=== PATIENT | male | born 1955 | race Hispanic/Latino ===

== ENCOUNTER 2019-10-28 20:56 | Inpatient (IN) | payer SELFPAY ==
[~2019-10-28] VITALS: Ht 165.1 cm; Wt 68.6 kg
--- NOTE | 2019-10-28 21:18 | Emergency Department Note ---
History of Present Illnes History of Present Illness Chief Complaint: Abdominal Complaints History of Present Illness This is a 64 year old male diarrheal illness with hematochezia of one month duratoin . 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 Any updates have been documented here. Past Medical History Recent Fever: Yes Clinical Suspicion of Infectio: Yes New/Unexplained Change in Ment: No Past Medical History: Hypertension, Diabetes Past Surgical History: None Social History Smoking Cessation: Never Smoker Alcohol Use: None Any Illegal Drug Use: No Review of Systems Review of Systems Constitutional: Reports weakness EENTM: Reports no symptoms Cardiovascular: Reports no symptoms Respiratory: Reports no symptoms Gastrointestinal: Reports abdominal pain Genitourinary: Reports no symptoms Musculoskeletal: Reports no symptoms Integumentary: Reports no symptoms Neurological: Reports no symptoms Psychological: Reports no symptoms Endocrine: Reports no symptoms Hematological/Lymphatic: Reports no symptoms Physical Exam Related Data Allergies: Coded Allergies: No Known Allergies (Unverified , 10/28/19) Triage Vital Signs Vital Signs Date Time Temp Pulse Resp B/P (MAP) Pulse Ox O2 Delivery O2 Flow Rate FiO2 10/28/19 21:16 100.7 160 16 106/74 97 Room Air 10/28/19 23:47 2.0 Vital signs reviewed: Yes Physical Exam CONSTITUTIONAL Constitutional: Present well-developed, Present well-nourished, Present ill appearing HENT HENT: Present normocephalic, Present atraumatic, Present oropharynx clear/moist, Present nose normal HENT L/R: Present left ext ear normal, Present right ext ear normal EYES Eyes: Reports PERRL, Reports conjunctivae normal NECK Neck: Present ROM normal PULMONARY Pulmonary: Present effort normal, Present breath sounds normal CARDIOVASCULAR Cardiovascular: Present irregular rhythm, Present heart sounds normal, Present tachycardia GASTROINTESTINAL Abdominal: Present soft, Present tender (epigastric) GENITOURINARY Genitourinary: Present exam deferred SKIN Skin: Present warm, Present dry MUSCULOSKELETAL Musculoskeletal: Present ROM normal NEUROLOGICAL Neurological: Present alert, Present oriented x 3, Present no gross motor or sensory deficits PSYCHOLOGICAL Psychological: Present mood/affect normal, Present judgement normal Results Laboratory Lab results reviewed: Yes Laboratory comments Laboratory Tests Test 10/28/19 23:33 10/28/19 22:00 10/28/19 21:52 10/28/19 21:26 Urine Color Yellow (YELLOW) Urine Clarity Clear (CLEAR) Urine pH 5 (5 - 7) Urine Specific [place] 1.005 (1.010-1.025) Urine Protein Negative (NEGATIVE) Urine Glucose (UA) Negative (NEGATIVE) Urine Ketones Trace (NEGATIVE) Urine Blood Negative (NEGATIVE) Urine Nitrite Negative (NEGATIVE) Urine Bilirubin Negative (NEGATIVE) Urine Urobilinogen 0.2 mg/dL (0.2 - 1) Urine Leukocyte Esterase Negative (NEGATIVE) Urine RBC 0-5 /HPF (0-5) Urine WBC 0-5 /HPF (0-5) Urine Epithelial Cells Few /LPF (NONE) Urine Bacteria Few /HPF (NONE) Lactic Acid Level 2.5 mmol/L (0.5-2.0) 2.4 mmol/L (0.5-2.0) White Blood Count 4.54 x10e3/uL (4.8-10.8) Red Blood Count 4.39 x10e6/uL (4.3-5.7) Hemoglobin 13.3 g/dL (14.0-18.0) Hematocrit 39.3 % (38.2-49.6) Mean Corpuscular Volume 89.5 fL (81-99) Mean Corpuscular Hemoglobin 30.3 pg (28-32) Mean Corpuscular Hemoglobin Concent 33.8 g/dL (31-35) Red Cell Distribution Width 13.4 % (11.7-14.4) Platelet Count 239 x10e3/uL (140-360) Neutrophils (%) (Auto) 78.6 % (38.7-80.0) Lymphocytes (%) (Auto) 10.8 % (18.0-39.1) Monocytes (%) (Auto) 7.7 % (4.4-11.3) Eosinophils (%) (Auto) 0.4 % (0.0-6.0) Basophils (%) (Auto) 1.8 % (0.0-1.0) Neutrophils # (Auto) 3.6 (2.1-6.9) Lymphocytes # (Auto) 0.5 (1.0-3.2) Monocytes # (Auto) 0.4 (0.2-0.8) Eosinophils # (Auto) 0.0 (0.0-0.4) Basophils # (Auto) 0.1 (0.0-0.1) Absolute Immature Granulocyte (auto 0.03 x10e3/uL (0-0.1) Sodium Level 137 mmol/L (136-145) Potassium Level 4.2 mmol/L (3.5-5.1) Chloride Level 102 mmol/L (98-107) Carbon Dioxide Level 18 mmol/L (22-29) Anion Gap 21.2 mmol/L (8-16) Blood Urea Nitrogen 21 mg/dL (7-26) Creatinine 1.11 mg/dL (0.72-1.25) Estimat Glomerular Filtration Rate > 60 ML/MIN (60-) BUN/Creatinine Ratio 19 (6-25) Glucose Level 153 mg/dL (74-118) Calcium Level 9.3 mg/dL (8.4-10.2) Total Bilirubin 1.2 mg/dL (0.2-1.2) Aspartate Amino Transf (AST/SGOT) 13 IU/L (5-34) Alanine Aminotransferase (ALT/SGPT) 15 IU/L (0-55) Alkaline Phosphatase 71 IU/L (40-150) Creatine Kinase 11 IU/L (30-200) Creatine Kinase MB 0.50 ng/mL (0-5.0) Troponin I < 0.001 ng/mL (0-0.300) Total Protein 6.9 g/dL (6.5-8.1) Albumin 2.7 g/dL (3.5-5.0) Globulin 4.2 g/dL (2.3-3.5) Albumin/Globulin Ratio 0.6 (0.8-2.0) Lipase < 4 U/L (8-78) Imaging Imaging results reviewed: Yes Impressions [facility] [address] [place] [address] Patient Name: MISSY CARCAMO MR #: [id number] : 1955 Age/Sex: 64/M Req #: [id number] [facility] Physician: Ordered by: JYOTI MELVIN DO Report #: [id number] Location: ER Room/Bed: Procedure: [id number] CT/CT CHEST W Exam Date: 10/28/19 Exam Time: 2216 REPORT STATUS: Signed EXAM: CT Chest, Abdomen and Pelvis WITH contrast INDICATION: Cough, diarrhea COMPARISON: None. TECHNIQUE: Chest, abdomen and pelvis were scanned utilizing a multidetector helical scanner from the lung apex to the pubic symphysis after administration of IV contrast. Coronal and sagittal reformations were obtained. Routine protocol was performed. Scan was performed when during portal venous phase. IV CONTRAST: 100 mL of Isovue 370 ORAL CONTRAST: None COMPLICATIONS: None RADIATION DOSE: Total DLP: 671 mGy*cm Estimated effective dose: (DLP x 0.015 x size factor) mSv CTDIvol has been reviewed. It is below the limits set by the Radiation Protocol Committee (RPC). Dose modulation, iterative reconstruction, and/or weight based adjustment of the mA/kV was utilized to reduce the radiation dose to as low as reasonably achievable. FINDINGS: LINES and TUBES: None. LUNGS AND AIRWAYS: The lungs are unremarkable. Airways are normal. PLEURA: The pleural spaces are clear. HEART AND MEDIASTINUM: The thyroid gland is normal. No mediastinal, hilar or axillary lymphadenopathy. The heart is mildly enlarged. There is no pericardial effusion. Aortic valve calcifications. Minimal calcifications of the aorta and major branches. Fluid in the mid to lower esophageal lumen. HEPATOBILIARY: Hypodense liver. No focal hepatic lesions. No biliary ductal dilation. GALLBLADDER: No radio-opaque stones or sludge. No wall thickening. SPLEEN: No splenomegaly. PANCREAS: Atrophy and fatty replacement of the pancreas. ADRENALS: No adrenal nodules. atrophic adrenal glands. KIDNEYS/URETERS: Kidneys enhance symmetrically. No hydronephrosis. No cystic or solid mass lesions. No stones. GI TRACT: Pancolonic wall thickening, mucosal hyperenhancement, loss of aspiration. Appendix is normal. PELVIC ORGANS/BLADDER: Unremarkable. LYMPH NODES: No lymphadenopathy. VESSELS: Arterial calcifications. PERITONEUM / RETROPERITONEUM: No free air or fluid. BONES: Degenerative changes. Osseous demineralization. SOFT TISSUES: Unremarkable. IMPRESSION: 1. Pancolitis, correlate for inflammatory bowel disease or infection/pseudomembranous colitis. 2. Fluid in the mid to lower esophageal lumen, suggestive of gastroesophageal reflux. 3. Hepatic steatosis. 4. Adrenal and pancreatic atrophy. Considerable hormonal analysis. Signed by: Delfino Cherry DO on 10/29/2019 12:12 AM Dictated By: DELFINO CHERRY DO Transcribed By: BRENDA on 10/29/1911 COPY TO: JYOTI MELVIN DO~ Procedures 12 Lead ECG Interpretation ECG Interpretation : ECG: ECG 1 Pit Furnace Operator: Interpreted by ED physician Date: Oct 28, 2019 Time: 21:42 Prior ECG tracings: reviewed Rhythm: atrial fibrillation Ectopy: PVC's Rate: tachycardia BPM: 160 ST segment flattening: V4, V5, V6 Clinical Impression: abnormal ECG Critical Care Time Total Critical Care Time (min): 31 Critcal care necessary due to: cardiac failure, sepsis Critcal care time spent by me: develop tx plan w patient/surrogate, discussion w consultants, discussion w primary provider, evaluation patient response to tx, examination of patient, obtaining hx from patient/surrogate, order/perform tx or interventions, order/review laboratory studies, order/review radiographic studies, re-evaluation of patient condition Assessment & Plan Medical Decision Making MDM 64 yom presents presents with signs and symptoms concerning for sepsis . Blood cx x 2 and blood cx ordered with abx given. Lactic acid obtained and reviewed. During the COVID-19 virus pandemic and has a clinical picture consistent with a COVID-19 source for sepsis. Thus, patient was treated for suspected viral sepsis rather than bacterial sepsis. Given the potential for ARDS and present suggestions of early data from COVID treatment in other areas, fluids were given sparingly and the SEP-1 guidelines were deviated from. For consideration of other sources, blood and urine cultures, lactic acid and antibiotics were ordered. Will continue to monitor blood pressure and adjust fluid resuscitation accordingly. Assessment & Plan Final Impression: (1) Pseudomembranous colitis (2) Atrial fibrillation with rapid ventricular response (3) Severe sepsis JYOTI MELVIN DO Oct 28, 2019 21:18
[2019-10-28] MEDS ORDERED: ACETAMINOPHEN 325 MG TAB PO STA (21:27)
[2019-10-28] MEDS ORDERED: DILTIAZEM HCL 5 MG/ML 5 ML VIAL IV STA (21:37)
[2019-10-28] MEDS ORDERED: DILTIAZEM HCL VIAL 5 ML ONE (21:42)
[2019-10-28] MEDS ORDERED: SODIUM CHLORIDE 0.9% 1000ML 1,000 ML ONE (21:43)
[2019-10-28 21:59] LABS: ALANINE AMINOTRANSFERASE 15 IU/L (0-55); ALBUMIN 2.7 g/dL (3.5-5.0); ALBUMIN/GLOBULIN RATIO 0.6 (0.8-2.0); ALKALINE PHOSPHATASE 71 IU/L (40-150); ANION GAP 21.2 mmol/L (8-16); BASOPHILS # (AUTO) 0.1 (0.0-0.1); BASOPHILS % 1.8 % (0.0-1.0); BLOOD UREA NITROGEN 21 mg/dL (7-26); BUN/CREATININE RATIO 19 (6-25); CALCIUM 9.3 mg/dL (8.4-10.2); CARBON DIOXIDE 18 mmol/L (22-29); CHLORIDE 102 mmol/L (98-107); CREATINE KINASE 11 IU/L (30-200); CREATININE, SERUM 1.11 mg/dL (0.72-1.25); EOSINOPHILS % 0.4 % (0.0-6.0); EST GLOMERULAR FILTRATION RATE > 60 ML/MIN (60-); GLUCOSE 153 mg/dL (74-118); HEMATOCRIT 39.3 % (38.2-49.6); HEMOGLOBIN 13.3 g/dL (14.0-18.0); LYMPHOCYTES # (AUTO) 0.5 (1.0-3.2); LYMPHOCYTES % 10.8 % (18.0-39.1); MEAN CORPUSCULAR HEMOGLOBIN 30.3 pg (28-32); MEAN CORPUSCULAR HGB CONC 33.8 g/dL (31-35); MEAN CORPUSCULAR VOLUME 89.5 fL (81-99); MONOCYTES # (AUTO) 0.4 (0.2-0.8); MONOCYTES % 7.7 % (4.4-11.3); NEUTROPHILS # (AUTO) 3.6 (2.1-6.9); NEUTROPHILS % 78.6 % (38.7-80.0); PLATELET COUNT 239 x10e3/uL (140-360); POTASSIUM 4.2 mmol/L (3.5-5.1); RED BLOOD COUNT 4.39 x10e6/uL (4.3-5.7); RED CELL DISTRIBUTION WIDTH 13.4 % (11.7-14.4); SODIUM 137 mmol/L (136-145)
[2019-10-28] MEDS ORDERED: PIPER-TAZ 3.375 GM 50 ML IV SCH (22:00)
--- OUTSIDE RECORDS SUMMARY | 2019-10-28 22:00 | XMS REPORT | Continuity of Care Document ---
Author Author [facility] t Organization [facility] Address [address] [place] [address] Phone Unavailable Care Team Providers Care Area Counselor Name Role Phone Unavailable Unavailable Payers Payer Name Policy Type Policy Number Effective Date Expiration Date S ource Problems This patient has no known problems. Allergies, Adverse Reactions, Alerts Allergy Name Allergy Type Status Severity Reaction(s) Onset Date Inacti ve Date Treating Clinician Comments Source No Known Allergies DA Active U 2019-10-24 00:00:00 [facility] No Known Allergies DA Active U 2014-10-06 00:00:00 [facility] Medications This patient has no known medications. Procedures This patient has no known procedures. Results Test Description Test Time Test Comments Results Result Comments Source URINALYSIS COMPLETE 2019-10-24 17:00:00 Test Item UA COLOR (test code = COLU) Dark-Yellow YELLOW UA APPEARANCE (test code = APPU) Cloudy CLEAR A UA GLUCOSE DIPSTICK (test code = DGLUU) NEGATIVE mg/dL NEGATIVE UA BILIRUBIN DIPSTICK (test code = BILU) 0.5 (1+) mg/dL NEGATIVE A UA KETONE DIPSTICK (test code = KETU) 20 (1+) mg/dL NEGATIVE A UA SPECIFIC GRAVITY (test code = SGU) 1.030 1.001-1.035 UA BLOOD DIPSTICK (test code = RAYSHAWN) Negative mg/dL NEGATIVE UA PH DIPSTICK (test code = KAROLINA) 5.5 5.0-8.0 UA PROTEIN DIPSTICK (test code = PROU) 100 (2+) mg/dL NEGATIVE A UA UROBILINIOGEN DIPSTICK (test code = URO) 2.0 (1+) mg/dL NEGATIVE A UA NITRITE DIPSTICK (test code = INDRA) NEGATIVE NEGATIVE UA LEUKOCYTE ESTERASE W REFLEX (test code = LEUUR) NEGATIVE Lokesh/uL NEGATIVE UA WBC (test code = WBCU) 11-20 per HPF 0-5 A UA RBC (test code = RBCU) 0-2 #/HPF 0-5 UA EPITHELIAL CELLS (test code = EPIU) FEW per HPF FEW UA BACTERIA (test code = BACU) NONE SEEN #/HPF NONE UA HYALINE CAST (test code = HYALU) 11-20 #/LPF 0-5 A UA MUCUS (test code = MUCU) MANY #/LPF FEW A Urine Source? Clean CatchBASIC METABOLIC [id number] 11:16:00* Test Item Value Reference Range Interpretation Comments SODIUM (test code = NA) 138 mmol/L 136-145 N POTASSIUM (test code = K) 4.5 mmol/L 3.5-5.1 N CHLORIDE (test code = CL) 107.0 mmol/L 98-107 N CARBON DIOXIDE (test code = CO2) 23.0 mmol/L 21-32 N ANION GAP (test code = GAP) 12.5 10-20 N GLUCOSE (test code = GLU) 110 mg/dL 74-106 H BLOOD UREA NITROGEN (test code = BUN) 11 mg/dL 7-18 N GLOMERULAR FILTRATION RATE (test code = GFR) > 60 mL/min >=60 Estimated GFR by using Modified MDRD formula.Chronic kidney disease is defined as either kidney damageor GFR <60 mL/min/1.73 m2 for >3 months. CREATININE (test code = CREAT) 1.20 mg/dL 0.7-1.3 N BUN/CREATININE RATIO (test code = BUN/CREA) 9.6 10-20 L CALCIUM (test code = CA) 9.0 mg/dL 8.5-10.1 N HEPATIC FUNCTION [id number] 11:16:00* Test Item Value Reference Range Interpretation Comments TOTAL PROTEIN (test code = PROT) 7.3 gram/dL 6.4-8.2 N ALBUMIN (test code = ALB) 2.8 g/dL 3.4-5.0 L GLOBULIN (test code = GLOB) 4.5 gram/dL 2.7-4.2 H ALBUMIN/GLOBULIN RATIO (test code = A/G) 0.6 0.75-1.50 L BILIRUBIN TOTAL (test code = BILT) 1.20 mg/dL 0.0-1.0 H BILIRUBIN DIRECT (test code = BILD) 0.20 mg/dL 0.0-0.20 N SGOT/AST (test code = AST) 37 IUnit/L 15-37 N SGPT/ALT (test code = ALT) 44 IUnit/L 12-78 N ALKALINE PHOSPHATASE TOTAL (test code = ALKP) 85 IUnit/L 45-117 N Note change in reference range due to change in reagent. [id number] 11:16:00* Test Item Value Reference Range Interpretation Comments LIPASE (test code = LIP) 12 U/L 73.0-393.0 L [id number] 11:16:00* Test Item Value Reference Range Interpretation Comments TROPONIN-I (test code = TROPI) <0.015 ng/mL 0-0.045 N BASIC METABOLIC [id number] 11:06:00* Test Item Value Reference Range Interpretation Comments SODIUM (test code = NA) 138 mmol/L 136-145 N POTASSIUM (test code = K) 4.5 mmol/L 3.5-5.1 N CHLORIDE (test code = CL) 107.0 mmol/L 98-107 N CARBON DIOXIDE (test code = CO2) mmol/L 21-32 ANION GAP (test code = GAP) 10-20 GLUCOSE (test code = GLU) mg/dL 74-106 BLOOD UREA NITROGEN (test code = BUN) mg/dL 7-18 GLOMERULAR FILTRATION RATE (test code = GFR) mL/min >=60 CREATININE (test code = CREAT) mg/dL 0.7-1.3 BUN/CREATININE RATIO (test code = BUN/CREA) 10-20 CALCIUM (test code = CA) mg/dL 8.5-10.1 HEPATIC FUNCTION [id number] 11:06:00* Test Item Value Reference Range Interpretation Comments TOTAL PROTEIN (test code = PROT) gram/dL 6.4-8.2 ALBUMIN (test code = ALB) g/dL 3.4-5.0 GLOBULIN (test code = GLOB) gram/dL 2.7-4.2 ALBUMIN/GLOBULIN RATIO (test code = A/G) 0.75-1.50 BILIRUBIN TOTAL (test code = BILT) mg/dL 0.0-1.0 BILIRUBIN DIRECT (test code = BILD) mg/dL 0.0-0.20 SGOT/AST (test code = AST) IUnit/L 15-37 SGPT/ALT (test code = ALT) IUnit/L 12-78 ALKALINE PHOSPHATASE TOTAL (test code = ALKP) IUnit/L 45-117 [id number] 11:06:00* Test Item Value Reference Range Interpretation Comments LIPASE (test code = LIP) U/L 73.0-393.0 [id number] 11:06:00* Test Item Value Reference Range Interpretation Comments TROPONIN-I (test code = TROPI) ng/mL 0-0.045 CBC W/O [id number] 10:58:00* Test Item Value Reference Range Interpretation Comments WHITE BLOOD CELL (test code = WBC) 10.4 K/mm3 4.5-12.5 N RED BLOOD CELL (test code = RBC) 4.57 mill/mm3 4.0-5.8 N HEMOGLOBIN (test code = HGB) 14.2 gram/dL 13.0-17.5 N HEMATOCRIT (test code = HCT) 42.4 % 42.0-52.0 N MEAN CELL VOLUME (test code = MCV) 92.8 fL 80-98 N MEAN CELL HGB (test code = MCH) 31.1 picogram 27.0-33.0 N MEAN CELL HGB CONCETRATION (test code = MCHC) 33.5 gram/dL 33.0-36. 0 N RED CELL DISTRIBUTION WIDTH (test code = RDW) 13.3 % 11.6-16. 2 N PLATELET COUNT (test code = PLT) 296 K/mm3 150-450 N MEAN PLATELET VOLUME (test code = MPV) 10.5 fL 6.7-11.0 N CBC W/O [id number] 10:56:00* Test Item Value Reference Range Interpretation Comments WHITE BLOOD CELL (test code = WBC) K/mm3 4.5-12.5 RED BLOOD CELL (test code = RBC) mill/mm3 4.0-5.8 HEMOGLOBIN (test code = HGB) 14.2 gram/dL 13.0-17.5 N HEMATOCRIT (test code = HCT) 42.4 % 42.0-52.0 N MEAN CELL VOLUME (test code = MCV) fL 80-98 MEAN CELL HGB (test code = MCH) picogram 27.0-33.0 MEAN CELL HGB CONCETRATION (test code = MCHC) gram/dL 33.0-36. 0 RED CELL DISTRIBUTION WIDTH (test code = RDW) % 11.6-16. 2 PLATELET COUNT (test code = PLT) 296 K/mm3 150-450 N MEAN PLATELET VOLUME (test code = MPV) fL 6.7-11.0 LIPID PROFILE (CORONARY RISK)2019-06-13 15:12:00* Test Item Value Reference Range Interpretation Comments TRIGLYCERIDES (test code = TRIG) 122 mg/dL 20-150 N CHOLESTEROL (test code = CHOL) 227 mg/dL 0-200 H CHOLESTEROL/HDL RATIO (test code = CHOLHDL) 4.0 RATIO 0-4.9 N RISK ASSOCIATED WITH CHOL/HDL RATIOS: Risk Male Female1/2 AVERAGE 3.43 3.27AVERAGE 4.97 4.442X AVERAGE 9.55 7.053X AVERAGE 23.39 11.04 REFERENCE VALUE IS RELATED TO RISK LEVELS ASRECOMMENDED BY THE [facility]. HEART, LUNG, AND BLOOD INST. HDL CHOLESTEROL (test code = HDL) 51 mg/dL 40-60 N LIPOPROTEIN LDL (test code = LDL) 151 mg/dL 100-129 H RN PERSONNEL, CONTACT PHYSICIAN IMMEDIATELY IF THIS IS A STROKE, AMI OR CAROTID STENOSIS PATIENT WHEN THE LDL >100 (1ST OCCURENCE, THIS ADMISSION) Reference Interval: mg/dL mmol/L Optimal <100 <2.6Near/above optimal 100-129 2.6- 3.3Borderline High 130-159 3.4-4.1High 160-189 4.1-4.9Very High >=190 >=4.9========= This LDL result is a direct measurement.========= [id number] 14:35:00* Test Item Value Reference Range Interpretation Comments TROPONIN-I (test code = TROPI) <0.015 ng/mL 0-0.045 N - CTA [id number] 09:43:00 Name: MISSY CARCAMO [facility] : 1955 Age/S: 63 / M [address] [facility] Unit #: [id number] Loc: [place] [address] Phys: Eva Escobedo MD Acct: [id number] Dis Date: Status: ADM IN PHONE #: [phone] Exam Date: 06/13/2019809 FAX #: [phone] Reason: Stroke EXAMS: CPT CODE: [id number] CTA HEAD 80649 HISTORY: Stroke. COMPARISON: Head CT from same day. Location: [facility]. CTA NECK: 3-D images NOT available. 100 mL of Isovue-370. Automated exposure control. NASCET criteria. The lung apices are clear. Dependent changes. Superior mediastinum is unremarkable. DJD of the cervical spine with multilevel posterior marginal disc osteophyte complex and facet hypertrophy. This results in moderate canal and moderate foraminal stenosis. No pathologic adenopathy. Unremarkable thyroid glands. Airway is patent. Symmetrical fossa of Rosenmueller. Intraorbital contents are unremarkable. The brain parenchyma enhances homogeneously. Large acute infarct is suspected again in the left MCA distribution superiorly in the parietal cortex. Dural sinuses are well-opacified. Right side: Subclavian artery is widely patent. Occluded vertebral artery. CCA is widely patent. Large soft atherosclerotic plaque at the carotid bulb. Stenosis of 50-60%. ICA is patent. ECA is patent. Left side: Subclavian artery is widely patent. Dominant vertebral artery is widely patent. CCA is widely patent. Soft and hard plaque at the carotid bulb and origin of ICA. Stenosis of 80-90% at the origin of the ICA. Flow noted distally. ECA is widely patent . IMPRESSION: 80-90% stenosis with soft and [address] plaque at the origin of left ICA and carotid bulb. 50-60% stenosis at the right carotid bulb with soft plaque. Occluded rig ht vertebral artery at its origin. CTA pilot station of Shaheed lis: 3-D images NOT available. Basilar artery is diminutive bu t patent with moderate atherosclerotic change proximally with 50% narrow ing. Flow noted distally. origin of the right STATOR WINDER with extensive a therosclerotic change in the P2 segment. Left STATOR WINDER is patent. Left specialized language instructor ior communicating artery is patent and the right is absent. Anterior com municating artery is patent. PAGE 1 Signed Re port (CONTINUED) Name: MISSY CARCAMO [facility] : 1955 Age[facility]S: 63 [facility] [address] [facility] [id number] Loc: [place] [address] Phys: Eva Escobedo MD Acct: [id number] Dis Date: Status: ADM IN PHONE #: [phone] Exam Date: 06/13/2019 0810 FAX #: [phone] Reason: Stroke EXAMS: CPT CODE: [id number] CTA HEAD 27088 <Continued> Bilateral petrous ICA and cavernous ICA are widely patent. Moderate atherosclerotic change of the supraclinoid left ICA with 50-60% stenosis. The right supraclinoid ICA is patent. Right MCA and FRED are widely patent. Left FRED and MCA are widely patent as well. No aneurysm. Dural sinuses are patent. IMPRESSION: 50-60% stenosis of the left supraclinoid ICA. Bilateral FRED and MCA and STATOR WINDER are patent with moderate atherosclerotic changes of the P2 segment on the right with origin. No aneurysm. at 0943 Reported and signed by: Colten Jolly M.D. CC: Eva Escobedo MD; Guanakito Momin; ROBY BAUTISTA Technologist:Salbador Dawkins RT(R),(MR),(CT); CTDI: DLP: Trnscb Date/Time: 06/13/2019 (0943) [email or web address] Orig Print D/T: S: 06/13/2019 (5229) PAGE 2 Signed Report - CTA [id number] 09:43:00 Name: MISSY CARCAMO [facility] : 1955 Age/S: 63 / M [address] Unit #: [id number] Loc: [place] [address] Phys: Eva Escobedo MD Acct: [id number] Dis Date: Status: ADM IN PHONE #: [phone] Exam Date: 06/13/2019809 FAX #: [phone] Reason: Stroke EXAMS: CPT CODE: [id number] CTA NECK 36572 HISTORY: Stroke. COMPARISON: Head CT from same day. Location: [facility]. CTA NECK: 3-D images NOT available. 100 mL of Isovue-370. Automated exposure control. NASCET criteria. The lung apices are clear. Dependent changes. Superior mediastinum is unremarkable. DJD of the cervical spine with multilevel posterior marginal disc osteophyte complex and facet hypertrophy. This results in moderate canal and moderate foraminal stenosis. No pathologic adenopathy. Unremarkable thyroid glands. Airway is patent. Symmetrical fossa of Rosenmueller. Intraorbital contents are unremarkable. The brain parenchyma enhances homogeneously. Large acute infarct is suspected again in the left MCA distribution superiorly in the parietal cortex. Dural sinuses are well-opacified. Right side: Subclavian artery is widely patent. Occluded vertebral artery. CCA is widely patent. Large soft atherosclerotic plaque at the carotid bulb. Stenosis of 50-60%. ICA is patent. ECA is patent. Left side: Subclavian artery is widely patent. Dominant vertebral artery is widely patent. CCA is widely patent. Soft and hard plaque at the carotid bulb and origin of ICA. Stenosis of 80-90% at the origin of the ICA. Flow noted distally. ECA is widely patent . IMPRESSION: 80-90% stenosis with soft and [address] plaque at the origin of left ICA and carotid bulb. 50-60% stenosis at the right carotid bulb with soft plaque. Occluded rig ht vertebral artery at its origin. CTA pilot station of Shaheed lis: 3-D images NOT available. Basilar artery is diminutive bu t patent with moderate atherosclerotic change proximally with 50% narrow ing. Flow noted distally. origin of the right STATOR WINDER with extensive a therosclerotic change in the P2 segment. Left STATOR WINDER is patent. Left specialized language instructor ior communicating artery is patent and the right is absent. Anterior com municating artery is patent. PAGE 1 Signed Re port (CONTINUED) Name: MISSY CARCAMO [facility] : 1955 Age/S: 63 / M [address] Unit #: [id number] Loc: [place] [address] Phys: Eva Escobedo MD Acct: [id number] Dis Date: Status: ADM IN PHONE #: [phone] Exam Date: 06/13/2019809 FAX #: [phone] Reason: Stroke EXAMS: CPT CODE: [id number] CTA NECK 55690 <Continued> Bilateral petrous ICA and cavernous ICA are widely patent. Moderate atherosclerotic change of the supraclinoid left ICA with 50-60% stenosis. The right supraclinoid ICA is patent. Right MCA and FRED are widely patent. Left FRED and MCA are widely patent as well. No aneurysm. Dural sinuses are patent. IMPRESSION: 50-60% stenosis of the left supraclinoid ICA. Bilateral FRED and MCA and STATOR WINDER are patent with moderate atherosclerotic changes of the P2 segment on the right with origin. No aneurysm. at 0943 Reported and signed by: Colten Jolly M.D. CC: Eva Escobedo MD; Guanakito Momin; ROBY BAUTISTA Technologist:Salbador Dawkins RT(R),(MR),(CT); CTDI: DLP: Trnscb Date/Time: 06/13/2019 (0943) [email or web address] Orig Print D/T: S: 06/13/2019 (7246) PAGE 2 Signed Report - MRI BRAIN W/O [id number] 09:15:00 FAX: Gabriel Dobbs MD [phone] [place]: B St: ADM FAX: Marianela Veras [phone] Name: MISSY CARCAMO [facility] : 1955 Age/S: 63/M [address] [facility] Unit #: [id number] Loc: [address] [place] [address] Phys: Gabriel Ha MD Acct: [id number] Dis Date: Status: ADM IN PHONE #: [phone] Exam Date: 06/13/2019900 FAX #: [phone] Reason: left mca infarct EXAMS: CPT CODE: [id number] MRI BRAIN W/O CONTRAST 50895 HISTORY: Left MCA infarct. COMPARISON: Head CT from same day. Location: [facility]. MRI brain without contrast: Large high left parietal large acute infarct with trace hemorrhage within it. Smaller infarcts also acute in the left frontal cortex superiorly. Mild chronic white matter ischemic disease in the periventri cular distribution and scattered lesions within the centrum semiovale whit e matter as well within the right occipital cortex. No herniation, hydroce phalus or midline shift. Fourth ventricle is midline. No extra-axial fluid collections. The expected flow-voids visible within the major in tracranial vasculature. VII and VIII nerve complex are symmetrical and nor mal. Inspissated secretions within both mastoid air cells. Mild mucosal thickening of the ethmoid air cells. Intraorbital contents are unremar kable. Midbrain, foster and medulla are without mass effect. Old inf arct in the right foster. No cerebellar ectopia. Pituitary gland, optic may sm and corpus callosum are normal. Clivus demonstrated normal marrow signa l. Symmetrical hippocampi without mesial temporal sclerosis. No pare nchymal mass on this noncontrast study. IMPRESSION: Acute large left high parietal infarct with trace hemorrhage and s cattered small acute infarcts in the left frontal cortex without hemorrh age. at 091 5 Reported and signed by: Colten Jolly M.D. CC: Gabriel Gonzalez MD; ROBY BAUTISTA Technologist: STEFANIA Herzog,RT - MRI Trnkyrd Date/Time/By: 06/13/2019 (091 5) : By: [email or web address] Orig Print D/T: S: 06/13/2019 (5321) PAGE 1 Signed Report [id number] 05:58:00* Test Item Value Reference Range Interpretation Comments TROPONIN-I (test code = TROPI) <0.015 ng/mL 0-0.045 N [id number] 22:30:00* Test Item Value Reference Range Interpretation Comments AMMONIA (test code = AMM) 38 umol/L 11-32 H - CT HEAD/BRAIN W/O [id number] 21:57:00 Name: MISSY CARCAMO [facility] : 1955 Age/S: 63 / M [address] [facility] Unit #: [id number] Loc: [address] Phys: Gabriel Ha MD [place], [place] [address] Acct: [id number] Dis Date: Status: REG ER PHONE #: Exam Date: 06/12/2019 2145 FAX #: Reason: Altered Mental Status EXAMS: CPT CODE: [id number] CT HEAD/BRAIN W/O CONT 49860 HISTORY: Altered Mental Status TECHNIQUE: Noncontrast 2.[address] of the head. Examination acquired within 24 hours of arrival. Automated exposure control for dose reduction; DLP: 597 mGy-cm. COMPARISON: 10/15/14 FINDINGS: Demarcated hypodensity involving the high left parietal lobe with local sulcal effacement. Additional smaller subcortical focus involving the inferolateral left frontal lobe. Mild periventricular chronic microvascular ischemic changes. No acute hemorrhage. No intracranial mass or mass effect. Mild parenchymal atrophy with ex vacuo dilation of the ventricular system. No hydrocephalus. No extra-axial fluid collection. Atherosclerotic vascular calcification of the carotid siphons. Visualized paranasal sinuses are clear. Mastoid air cells and middle ear cavities are clear. Orbital contents are unremarkable. Calvarium and skull base are intact. IMPRESSION: Findings compatible with left MCA territory infarct, thought to be subacute. Recommend MRI. No acute hemorrhage. CRITICAL VALUES: Dr. Ha notified of findings at 2154 hours. FOR INTERNAL CODING PURPOSES ONLY RESULT CODE: CVR LOCATION: LP at 2157 Reported and signed by: Monserrat Wong D.O. PAGE 1 Signed Report (CONTINUED) Name: MISSY CARCAMO [facility] : 1955 Age/S: 63 / M [address] [facility] [address] Unit #: [id number] Loc: [address] Phys: Gabriel Ha MD [place], [place] [address] Acct: [id number] Dis Date: Status: REG ER PHONE #: Exam Date: 0 06/12/20192142 FAX #: Reason: Altered Men prema Status EXAMS: CPT CODE: [id number] CT HEAD/BRAIN W/O CONT 27557 <Continued> CC: Gabriel Ha MD Technologist:Andreas Thomas CTDI: DLP: Trnscb Date/Time: 06/12/2019 (2156) [email or web address] Orig Print D/T: S: 06/12/2019 (2199) PAGE 2 Signed Report URINALYSIS [id number] 21:56:00* Test Item Value Reference Range Interpretation Comments UA COLOR (test code = COLU) YELLOW YELLOW UA APPEARANCE (test code = APPU) CLEAR CLEAR UA GLUCOSE DIPSTICK (test code = DGLUU) NEGATIVE mg/dL NEGATIVE UA BILIRUBIN DIPSTICK (test code = BILU) NEGATIVE NEGATIVE UA KETONE DIPSTICK (test code = KETU) NEGATIVE mg/dL NEGATIVE UA SPECIFIC GRAVITY (test code = SGU) >=1.030 1.001-1.035 UA BLOOD DIPSTICK (test code = RAYSHAWN) NEGATIVE NEGATIVE UA PH DIPSTICK (test code = KAROLINA) 5.5 5.0-8.0 UA PROTEIN DIPSTICK (test code = PROU) TRACE (15) mg/dL Neg-15 UA UROBILINIOGEN DIPSTICK (test code = URO) 0.2 mg/dL 0.0-0.2 UA NITRITE DIPSTICK (test code = INDRA) NEGATIVE NEGATIVE UA LEUKOCYTE ESTERASE DIPSTICK (test code = LEUU) NEGATIVE uL NEGA TIVE UA MICROSCOPIC NEEDED? (test code = UAMICRO) YES UA WBC (test code = WBCU) 0-5 per HPF 0-5 UA RBC (test code = RBCU) 0-3 per HPF 0-5 UA EPITHELIAL CELLS (test code = EPIU) Moderate (5-10/hpf) per HPF Few UA BACTERIA (test code = BACU) FEW per HPF NONE Urine Source? Clean CatchDRUGS OF ABUSE SCREEN [id number] 21:56:00* Test Item Value Reference Range Interpretation Comments UR MDMA (test code = MDMAQLU) NEGATIVE NEGATIVE URN COCAINE (test code = COCAURN) NEGATIVE NEGATIVE URN CANNABINOIDS (test code = CANNABURN) NEGATIVE <50 ng/mL URN AMPHETAMINE (test code = AMPHETURN) NEGATIVE NEGATIVE URN BARBITURATE (test code = BARBITURN) NEGATIVE NEGATIVE URN BENZODIAZEPINE (test code = BENZOURN) NEGATIVE NEGATIVE URN OPIATES (test code = OPIATURN) NEGATIVE NEGATIVE URN PHENCYCLIDINE (PCP) (test code = PHENCURN) NEGATIVE NEGATIV E URN METHADONE (test code = METHAURN) NEGATIVE <300 ng/mL Urine Source? Clean CatchURINALYSIS [id number] 21:52:00* Test Item Value Reference Range Interpretation Comments UA COLOR (test code = COLU) YELLOW YELLOW UA APPEARANCE (test code = APPU) CLEAR CLEAR UA GLUCOSE DIPSTICK (test code = DGLUU) NEGATIVE mg/dL NEGATIVE UA BILIRUBIN DIPSTICK (test code = BILU) NEGATIVE NEGATIVE UA KETONE DIPSTICK (test code = KETU) NEGATIVE mg/dL NEGATIVE UA SPECIFIC GRAVITY (test code = SGU) >=1.030 1.001-1.035 UA BLOOD DIPSTICK (test code = RAYSHAWN) NEGATIVE NEGATIVE UA PH DIPSTICK (test code = KAROLINA) 5.5 5.0-8.0 UA PROTEIN DIPSTICK (test code = PROU) TRACE (15) mg/dL Neg-15 UA UROBILINIOGEN DIPSTICK (test code = URO) 0.2 mg/dL 0.0-0.2 UA NITRITE DIPSTICK (test code = INDRA) NEGATIVE NEGATIVE UA LEUKOCYTE ESTERASE DIPSTICK (test code = LEUU) NEGATIVE uL NEGA TIVE UA MICROSCOPIC NEEDED? (test code = UAMICRO) YES UA WBC (test code = WBCU) 0-5 per HPF 0-5 UA RBC (test code = RBCU) 0-3 per HPF 0-5 UA EPITHELIAL CELLS (test code = EPIU) Moderate (5-10/hpf) per HPF Few UA BACTERIA (test code = BACU) FEW per HPF NONE Urine Source? Clean CatchDRUGS OF ABUSE SCREEN [id number] 21:52:00* Test Item Value Reference Range Interpretation Comments UR MDMA (test code = MDMAQLU) NEGATIVE URN COCAINE (test code = COCAURN) <300 ng/mL URN CANNABINOIDS (test code = CANNABURN) <50 ng/mL URN AMPHETAMINE (test code = AMPHETURN) <1000 ng/mL URN BARBITURATE (test code = BARBITURN) <200 ng/mL URN BENZODIAZEPINE (test code = BENZOURN) <200 ng/mL URN OPIATES (test code = OPIATURN) <300 ng/mL URN PHENCYCLIDINE (PCP) (test code = PHENCURN) <25 ng/ mL URN METHADONE (test code = METHAURN) <300 ng/mL Urine Source? Clean Catch- XR CHEST 1 [id number] 21:51:00 FAX: Gabriel Dobbs MD [phone] [place]: [place] St: REG Name: MISSY HARRIS [facility] FSED : [birth year] Age/S: 63/M [address] [facility] [address] Unit #: [id number] Loc: STE[facility] [address] Phys: Gabriel Ha MD [place], [place] [address] Acct: [id number] Dis Date: Status: REG ER PHONE #: Exam Date: 06/12/2019 5933 FAX #: Reason: Altered Mental Status EXAMS: CPT CODE: [id number] XR CHEST 1 V 94544 HISTORY: Altered Mental Status TECHNIQUE: AP chest x-ray COMPARISON: 10/06/14 FINDINGS: Low lung volumes. No airspace consolidation or pleural effusion. Cardiomegaly. Mediastinal silhouette is unremarkable. Degene rative changes of the spine. IMPRESSION: No radiographic evidence of acute cardiopulmonary process. LOCATION: LP at 2150 Reported and signed by: Monserrat Wong D.O. CC: Gabriel Ha MD Technologist: Andreas Thomas Trnscrd Date/Time/By: 06/12/2019 (2150) : By: [email or web address] Orig Print D/T: S: 06/12/2019 (2153) PAGE 1 Signed Report URINALYSIS [id number] 21:50:00* Test Item Value Reference Range Interpretation Comments UA COLOR (test code = COLU) YELLOW YELLOW UA APPEARANCE (test code = APPU) CLEAR CLEAR UA GLUCOSE DIPSTICK (test code = DGLUU) NEGATIVE mg/dL NEGATIVE UA BILIRUBIN DIPSTICK (test code = BILU) NEGATIVE NEGATIVE UA KETONE DIPSTICK (test code = KETU) NEGATIVE mg/dL NEGATIVE UA SPECIFIC GRAVITY (test code = SGU) >=1.030 1.001-1.035 UA BLOOD DIPSTICK (test code = RAYSHAWN) NEGATIVE NEGATIVE UA PH DIPSTICK (test code = KAROLINA) 5.5 5.0-8.0 UA PROTEIN DIPSTICK (test code = PROU) TRACE (15) mg/dL Neg-15 UA UROBILINIOGEN DIPSTICK (test code = URO) 0.2 mg/dL 0.0-0.2 UA NITRITE DIPSTICK (test code = IDNRA) NEGATIVE NEGATIVE UA LEUKOCYTE ESTERASE DIPSTICK (test code = LEUU) NEGATIVE uL NEGA TIVE UA MICROSCOPIC NEEDED? (test code = UAMICRO) UA WBC (test code = WBCU) per HPF 0-5 UA RBC (test code = RBCU) per HPF 0-5 UA EPITHELIAL CELLS (test code = EPIU) per HPF Few UA BACTERIA (test code = BACU) per HPF NONE Urine Source? Clean CatchDRUGS OF ABUSE SCREEN [id number] 21:50:00* Test Item Value Reference Range Interpretation Comments UR MDMA (test code = MDMAQLU) NEGATIVE URN COCAINE (test code = COCAURN) <300 ng/mL URN CANNABINOIDS (test code = CANNABURN) <50 ng/mL URN AMPHETAMINE (test code = AMPHETURN) <1000 ng/mL URN BARBITURATE (test code = BARBITURN) <200 ng/mL URN BENZODIAZEPINE (test code = BENZOURN) <200 ng/mL URN OPIATES (test code = OPIATURN) <300 ng/mL URN PHENCYCLIDINE (PCP) (test code = PHENCURN) <25 ng/ mL URN METHADONE (test code = METHAURN) <300 ng/mL Urine Source? Clean CatchB-TYPE NATRIURETIC [id number] 21:49:00* Test Item Value Reference Range Interpretation Comments B-TYPE NATRIURETIC PEPTIDE (test code = BNP) 168 pg/mL 0-100 H BASIC METABOLIC [id number] 21:46:00* Test Item Value Reference Range Interpretation Comments SODIUM (test code = NA) 142 mmol/L 128-145 N POTASSIUM (test code = K) 4.1 mmol/L 3.5-5.1 N CHLORIDE (test code = CL) 106.0 mmol/L 98-107 N CARBON DIOXIDE (test code = CO2) 25.3 mmol/L 22-29 N ANION GAP (test code = GAP) 15 mmol/L 10-20 N GLUCOSE (test code = GLU) 120 mg/dL 70-110 H BLOOD UREA NITROGEN (test code = BUN) 17 mg/dL 7-22 N GLOMERULAR FILTRATION RATE (test code = GFR) > 60 mL/min >=60 Estimated GFR by using Modified MDRD formula.Chronic kidney disease is defined as either kidney damageor GFR <60 mL/min/1.73 m2 for >3 months. CREATININE (test code = CREAT) 0.93 mg/dL 0.55-1.3 N BUN/CREATININE RATIO (test code = BUN/CREA) 18.3 10-20 N CALCIUM (test code = CA) 9.5 mg/dL 8.0-10.5 N HEPATIC FUNCTION [id number] 21:46:00* Test Item Value Reference Range Interpretation Comments TOTAL PROTEIN (test code = PROT) 9.0 gram/dL 6.1-7.8 H ALBUMIN (test code = ALB) 4.4 g/dL 3.3-4.4 N GLOBULIN (test code = GLOB) 4.6 G/DL 1-10 N ALBUMIN/GLOBULIN RATIO (test code = A/G) 1.0 0.75-1.50 N BILIRUBIN TOTAL (test code = BILT) 0.60 mg/dL 0.2-1.2 N BILIRUBIN DIRECT (test code = BILD) 0.10 mg/dL 0.0-0.30 N SGOT/AST (test code = AST) 25 U/L 10-39 N SGPT/ALT (test code = ALT) 22 U/L 10-69 N ALKALINE PHOSPHATASE TOTAL (test code = ALKP) 104 U/L 50-139 N CREATINE KINASE (CK)2019-06-12 21:46:00* Test Item Value Reference Range Interpretation Comments CREATINE KINASE (CK) (test code = CK) 38 U/L 39-308 L [id number] 21:46:00* Test Item Value Reference Range Interpretation Comments TROPONIN-I (test code = TROPI) <0.015 ng/mL 0.00-0.056 N [id number] 21:46:00* Test Item Value Reference Range Interpretation Comments ACETAMINOPHEN (test code = ACET) < 10 mcg/mL 10-30 L A RANGE OF 10-30 mcg/mL IS A THERAPEUTIC RANGE. TOXIC CONCENTRATIONS: >150 mcg/mL AT 4 HOURS AFTER INGESTION >= 50 mcg/mL AT 12 HOURS AFTER INGESTION [id number] 21:46:00* Test Item Value Reference Range Interpretation Comments SALICYLATE (test code = ANDRE) 0.5 mg/dL 2.8-20.0 L [id number] 21:46:00* Test Item Value Reference Range Interpretation Comments ALCOHOL (test code = ALC) < 3 mg/dL 0-3 N IN TERPRETATION: ETHYL ALCOHOL VALUES 50 MG/DL - NOT INTOXICATED 100 MG/DL - INTOXICATED 350-450 MG/DL- SEVERELY INTOXICATED >= 550 MG/DL - FATAL INTOXICATION BASIC METABOLIC [id number] 21:40:00* Test Item Value Reference Range Interpretation Comments SODIUM (test code = NA) 142 mmol/L 128-145 N POTASSIUM (test code = K) 4.1 mmol/L 3.5-5.1 N CHLORIDE (test code = CL) 106.0 mmol/L 98-107 N CARBON DIOXIDE (test code = CO2) 25.3 mmol/L 22-29 N ANION GAP (test code = GAP) 15 mmol/L 10-20 N GLUCOSE (test code = GLU) 120 mg/dL 70-110 H BLOOD UREA NITROGEN (test code = BUN) 17 mg/dL 7-22 N GLOMERULAR FILTRATION RATE (test code = GFR) > 60 mL/min >=60 Estimated GFR by using Modified MDRD formula.Chronic kidney disease is defined as either kidney damageor GFR <60 mL/min/1.73 m2 for >3 months. CREATININE (test code = CREAT) 0.93 mg/dL 0.55-1.3 N BUN/CREATININE RATIO (test code = BUN/CREA) 18.3 10-20 N CALCIUM (test code = CA) 9.5 mg/dL 8.0-10.5 N HEPATIC FUNCTION [id number] 21:40:00* Test Item Value Reference Range Interpretation Comments TOTAL PROTEIN (test code = PROT) gram/dL 6.4-8.2 ALBUMIN (test code = ALB) g/dL 3.4-5.0 GLOBULIN (test code = GLOB) G/DL 1-10 ALBUMIN/GLOBULIN RATIO (test code = A/G) 0.75-1.50 BILIRUBIN TOTAL (test code = BILT) mg/dL 0.0-1.0 BILIRUBIN DIRECT (test code = BILD) mg/dL 0.0-0.20 SGOT/AST (test code = AST) IUnit/L 15-37 SGPT/ALT (test code = ALT) IUnit/L 12-78 ALKALINE PHOSPHATASE TOTAL (test code = ALKP) IUnit/L 45-117 CREATINE KINASE (CK)2019-06-12 21:40:00* Test Item Value Reference Range Interpretation Comments CREATINE KINASE (CK) (test code = CK) U/L 39-308 [id number] 21:40:00* Test Item Value Reference Range Interpretation Comments TROPONIN-I (test code = TROPI) ng/mL 0-0.045 [id number] 21:40:00* Test Item Value Reference Range Interpretation Comments ACETAMINOPHEN (test code = ACET) mcg/mL 10-30 [id number] 21:40:00* Test Item Value Reference Range Interpretation Comments SALICYLATE (test code = ANDRE) mg/dL 2.8-20.0 [id number] 21:40:00* Test Item Value Reference Range Interpretation Comments ALCOHOL (test code = ALC) < 3 mg/dL 0-3 N IN TERPRETATION: ETHYL ALCOHOL VALUES 50 MG/DL - NOT INTOXICATED 100 MG/DL - INTOXICATED 350-450 MG/DL- SEVERELY INTOXICATED >= 550 MG/DL - FATAL INTOXICATION BASIC METABOLIC [id number] 21:40:00* Test Item Value Reference Range Interpretation Comments SODIUM (test code = NA) 142 mmol/L 128-145 N POTASSIUM (test code = K) 4.1 mmol/L 3.5-5.1 N CHLORIDE (test code = CL) 106.0 mmol/L 98-107 N CARBON DIOXIDE (test code = CO2) 25.3 mmol/L 22-29 N ANION GAP (test code = GAP) 15 mmol/L 10-20 N GLUCOSE (test code = GLU) 120 mg/dL 70-110 H BLOOD UREA NITROGEN (test code = BUN) 17 mg/dL 7-22 N GLOMERULAR FILTRATION RATE (test code = GFR) > 60 mL/min >=60 Estimated GFR by using Modified MDRD formula.Chronic kidney disease is defined as either kidney damageor GFR <60 mL/min/1.73 m2 for >3 months. CREATININE (test code = CREAT) 0.93 mg/dL 0.55-1.3 N BUN/CREATININE RATIO (test code = BUN/CREA) 18.3 10-20 N CALCIUM (test code = CA) 9.5 mg/dL 8.0-10.5 N HEPATIC FUNCTION [id number] 21:40:00* Test Item Value Reference Range Interpretation Comments TOTAL PROTEIN (test code = PROT) gram/dL 6.4-8.2 ALBUMIN (test code = ALB) g/dL 3.4-5.0 GLOBULIN (test code = GLOB) G/DL 1-10 ALBUMIN/GLOBULIN RATIO (test code = A/G) 0.75-1.50 BILIRUBIN TOTAL (test code = BILT) mg/dL 0.0-1.0 BILIRUBIN DIRECT (test code = BILD) mg/dL 0.0-0.20 SGOT/AST (test code = AST) IUnit/L 15-37 SGPT/ALT (test code = ALT) IUnit/L 12-78 ALKALINE PHOSPHATASE TOTAL (test code = ALKP) IUnit/L 45-117 CREATINE KINASE (CK)2019-06-12 21:40:00* Test Item Value Reference Range Interpretation Comments CREATINE KINASE (CK) (test code = CK) U/L 39-308 [id number] 21:40:00* Test Item Value Reference Range Interpretation Comments TROPONIN-I (test code = TROPI) ng/mL 0-0.045 [id number] 21:40:00* Test Item Value Reference Range Interpretation Comments ACETAMINOPHEN (test code = ACET) < 10 mcg/mL 10-30 L A RANGE OF 10-30 mcg/mL IS A THERAPEUTIC RANGE. TOXIC CONCENTRATIONS: >150 mcg/mL AT 4 HOURS AFTER INGESTION >= 50 mcg/mL AT 12 HOURS AFTER INGESTION [id number] 21:40:00* Test Item Value Reference Range Interpretation Comments SALICYLATE (test code = ANDRE) 0.5 mg/dL 2.8-20.0 L [id number] 21:40:00* Test Item Value Reference Range Interpretation Comments ALCOHOL (test code = ALC) < 3 mg/dL 0-3 N IN TERPRETATION: ETHYL ALCOHOL VALUES 50 MG/DL - NOT INTOXICATED 100 MG/DL - INTOXICATED 350-450 MG/DL- SEVERELY INTOXICATED >= 550 MG/DL - FATAL INTOXICATION THYROID STIMULATING [id number] 21:39:00* Test Item Value Reference Range Interpretation Comments THYROID STIMULATING HORMONE (test code = TSH) 2.378 uIU/mL 0.36-3.7 4 N TSH REFERENCE RANGES: EUTHYROID: 0.35 - 4.3 mIU/mL HYPO : > 5.5 mIU/mL HYPER : < 0.35 mIU/mL BASIC METABOLIC [id number] 21:39:00* Test Item Value Reference Range Interpretation Comments SODIUM (test code = NA) 142 mmol/L 128-145 N POTASSIUM (test code = K) 4.1 mmol/L 3.5-5.1 N CHLORIDE (test code = CL) 106.0 mmol/L 98-107 N CARBON DIOXIDE (test code = CO2) 25.3 mmol/L 22-29 N ANION GAP (test code = GAP) 15 mmol/L 10-20 N GLUCOSE (test code = GLU) 120 mg/dL 70-110 H BLOOD UREA NITROGEN (test code = BUN) 17 mg/dL 7-22 N GLOMERULAR FILTRATION RATE (test code = GFR) > 60 mL/min >=60 Estimated GFR by using Modified MDRD formula.Chronic kidney disease is defined as either kidney damageor GFR <60 mL/min/1.73 m2 for >3 months. CREATININE (test code = CREAT) 0.93 mg/dL 0.55-1.3 N BUN/CREATININE RATIO (test code = BUN/CREA) 18.3 10-20 N CALCIUM (test code = CA) 9.5 mg/dL 8.0-10.5 N HEPATIC FUNCTION [id number] 21:39:00* Test Item Value Reference Range Interpretation Comments TOTAL PROTEIN (test code = PROT) gram/dL 6.4-8.2 ALBUMIN (test code = ALB) g/dL 3.4-5.0 GLOBULIN (test code = GLOB) G/DL 1-10 ALBUMIN/GLOBULIN RATIO (test code = A/G) 0.75-1.50 BILIRUBIN TOTAL (test code = BILT) mg/dL 0.0-1.0 BILIRUBIN DIRECT (test code = BILD) mg/dL 0.0-0.20 SGOT/AST (test code = AST) IUnit/L 15-37 SGPT/ALT (test code = ALT) IUnit/L 12-78 ALKALINE PHOSPHATASE TOTAL (test code = ALKP) IUnit/L 45-117 CREATINE KINASE (CK)2019-06-12 21:39:00* Test Item Value Reference Range Interpretation Comments CREATINE KINASE (CK) (test code = CK) U/L 39-308 [id number] 21:39:00* Test Item Value Reference Range Interpretation Comments TROPONIN-I (test code = TROPI) ng/mL 0-0.045 [id number] 21:39:00* Test Item Value Reference Range Interpretation Comments ACETAMINOPHEN (test code = ACET) mcg/mL 10-30 [id number] 21:39:00* Test Item Value Reference Range Interpretation Comments SALICYLATE (test code = ANDRE) mg/dL 2.8-20.0 [id number] 21:39:00* Test Item Value Reference Range Interpretation Comments ALCOHOL (test code = ALC) mg/dL 0-3 CBC W/AUTO [id number] 21:13:00* Test Item Value Reference Range Interpretation Comments WHITE BLOOD CELL (test code = WBC) 7.9 K/mm3 4.5-12.5 N RED BLOOD CELL (test code = RBC) 5.42 mill/mm3 4.0-5.8 N HEMOGLOBIN (test code = HGB) 16.9 gram/dL 13.0-17.5 N HEMATOCRIT (test code = HCT) 49.3 % 42.0-52.0 N MEAN CELL VOLUME (test code = MCV) 91.0 fL 80-98 N MEAN CELL HGB (test code = MCH) 31.2 picogram 27.0-33.0 N MEAN CELL HGB CONCETRATION (test code = MCHC) 34.3 gram/dL 33.0-36. 0 N RED CELL DISTRIBUTION WIDTH (test code = RDW) 12.9 % 11.6-16. 2 N RED CELL DISTRIBUTION WIDTH SD (test code = RDW-SD) 43.6 fL 37 .0-51.0 N PLATELET COUNT (test code = PLT) 166 K/mm3 150-450 N MEAN PLATELET VOLUME (test code = MPV) 11.3 fL 6.7-11.0 H NEUTROPHIL % (test code = NT%) 65.3 % 39.0-69.0 N LYMPHOCYTE % (test code = LY%) 26.1 % 25.0-55.0 N MONOCYTE % (test code = MO%) 7.1 % 0.0-10.0 N EOSINOPHIL % (test code = EO%) 1.3 % 0.0-5.0 N BASOPHIL % (test code = BA%) 0.1 % 0.0-1.0 N NEUTROPHIL # (test code = NT#) 5.12 K/mm3 1.8-7.7 N LYMPHOCYTE # (test code = LY#) 2.05 K/mm3 1.0-5.0 N MONOCYTE # (test code = MO#) 0.56 K/mm3 0-0.8 N EOSINOPHIL # (test code = EO#) 0.10 K/mm3 0.0-0.5 N BASOPHIL # (test code = BA#) 0.01 K/mm3 0.0-0.2 N MANUAL DIFF REQUIRED (test code = MDIFF) NO
[2019-10-28] MEDS ORDERED: SODIUM CHLORIDE 0.9% 1000ML 1,000 ML IV SCH ×2 (22:45)
[2019-10-28] MEDS ORDERED: DIGOXIN INJ 0.25 MG/ML 2 ML AMP IV STA (22:57)
[2019-10-28 23:51] LABS: BILIRUBIN,URINE NEGATIVE (NEGATIVE); CLARITY,URINE CLEAR (CLEAR); COLOR,URINE YELLOW (YELLOW); KETONES,URINE TRACE (NEGATIVE); LEUKOCYTE ESTERASE ,URINE NEGATIVE (NEGATIVE); NITRITE,URINE NEGATIVE (NEGATIVE); PROTEIN,URINE DIPSTICK NEGATIVE (NEGATIVE); URINE UROBILINOGEN 0.2 mg/dL (0.2 - 1)
[2019-10-28 23:56] LABS: BACTERIA,URINE FEW /HPF; EPITHELIAL CELLS,URINE FEW /LPF; RBC,URINE 0-5 /HPF (0-5); WBC,URINE (MAN) 0-5 /HPF (0-5)
[2019-10-29] VITALS (9 sets, daily range): BP systolic 116–166; BP diastolic 61–79
--- NOTE | 2019-10-29 00:15 | Diagnostic Imaging Report ---
EXAM: CT Chest, Abdomen and Pelvis WITH contrast INDICATION: Cough, diarrhea COMPARISON: None. TECHNIQUE: Chest, abdomen and pelvis were scanned utilizing a multidetector helical scanner from the lung apex to the pubic symphysis after administration of IV contrast. Coronal and sagittal reformations were obtained. Routine protocol was performed. Scan was performed when during portal venous phase. IV CONTRAST: 100 mL of Isovue 370 ORAL CONTRAST: None COMPLICATIONS: None RADIATION DOSE: Total DLP: 671 mGy*cm Estimated effective dose: (DLP x 0.015 x size factor) mSv CTDIvol has been reviewed. It is below the limits set by the Radiation Protocol Committee (RPC). Dose modulation, iterative reconstruction, and/or weight based adjustment of the mA/kV was utilized to reduce the radiation dose to as low as reasonably achievable. FINDINGS: LINES and TUBES: None. LUNGS AND AIRWAYS: The lungs are unremarkable. Airways are normal. PLEURA: The pleural spaces are clear. HEART AND MEDIASTINUM: The thyroid gland is normal. No mediastinal, hilar or axillary lymphadenopathy. The heart is mildly enlarged. There is no pericardial effusion. Aortic valve calcifications. Minimal calcifications of the aorta and major branches. Fluid in the mid to lower esophageal lumen. HEPATOBILIARY: Hypodense liver. No focal hepatic lesions. No biliary ductal dilation. GALLBLADDER: No radio-opaque stones or sludge. No wall thickening. SPLEEN: No splenomegaly. PANCREAS: Atrophy and fatty replacement of the pancreas. ADRENALS: No adrenal nodules. atrophic adrenal glands. KIDNEYS/URETERS: Kidneys enhance symmetrically. No hydronephrosis. No cystic or solid mass lesions. No stones. GI TRACT: Pancolonic wall thickening, mucosal hyperenhancement, loss of aspiration. Appendix is normal. PELVIC ORGANS/BLADDER: Unremarkable. LYMPH NODES: No lymphadenopathy. VESSELS: Arterial calcifications. PERITONEUM / RETROPERITONEUM: No free air or fluid. BONES: Degenerative changes. Osseous demineralization. SOFT TISSUES: Unremarkable. IMPRESSION: 1. Pancolitis, correlate for inflammatory bowel disease or infection/pseudomembranous colitis. 2. Fluid in the mid to lower esophageal lumen, suggestive of gastroesophageal reflux. 3. Hepatic steatosis. 4. Adrenal and pancreatic atrophy. Considerable hormonal analysis. Signed by: Delfino Cherry DO on 10/29/2019 12:12 AM
[2019-10-29] MEDS ORDERED: SODIUM CHLORIDE 0.9% 1000ML 1,000 ML IV STA (00:28)
[2019-10-29] MEDS ORDERED: MORPHINE SULFATE 2 MG/ML SYR 1ML IV PRN (00:30)
[2019-10-29] MEDS ORDERED: VANCOMYCIN 250MG/5ML ORAL SOLN PO SCH ×2 (01:00→13:15)
--- OUTSIDE RECORDS SUMMARY | 2019-10-29 02:14 | XMS REPORT | Continuity of Care Document ---
Author Author [facility] t Organization [facility] Address [address] [place] [address] Phone Unavailable Care Team Providers Care Real Estate Site Analyst Name Role Phone JYOTI MELVIN Unavailable Payers Payer Name Policy Type Policy Number Effective Date Expiration Date S ource Problems This patient has no known problems. Allergies, Adverse Reactions, Alerts Allergy Name Allergy Type Status Severity Reaction(s) Onset Date Inacti ve Date Treating Clinician Comments Source No Known Allergies DA Active U 2019-10-24 00:00:00 [facility] No Known Allergies DA Active U 2014-10-06 00:00:00 [facility] Medications This patient has no known medications. Procedures This patient has no known procedures. Results Test Description Test Time Test Comments Results Result Comments Source CT ABDOMEN/PELVIS W 2019-10-29 00:04:00 [facility] [address], [place] [address] Patient Name: MISSY CARCAMO MR #: [id number] : 1955 Age/Sex: 64/M Req #: [id number] Adm Physician: Ordered by: JYOTI MELVIN DO Report #: [id number] Location: ER Room/Bed: Procedure: [id number] CT/CT ABDOMEN/PELVIS W Exam Date: 10/28/19 Exam Time: 7 REPORT STATUS: Signed EXAM: CT Chest, Abdomen and Pelvis WITH contrast INDICATION: Cough, diarrhea COMPARISON: None. TECHNIQUE: Chest, abdomen and pelvis were scanned utilizing a multidetector helical scanner from the lung apex to the pubic symphysis after administration of IV contrast. Coronal and sagittal reformations were obtained. Routine protocol was performed. Scan was performed when during portal venous phase. IV CONTRAST: 100 mL of Isovue 370 ORAL CONTRAST: None COMPLICATIONS: None RADIATION DOSE: Total DLP: 671 mGy*cm Estimated effective dose: (DLP x 0.015 x size factor) mSv CTDIvol has been reviewed. It is below the limits set by the Radiation Protocol Committee (RPC). Dose modulation, iterative reconstruction, and/or weight based adjustment of the mA/kV was utilized to reduce the radiation dose to as low as reasonably achievable. FINDINGS: LINES and TUBES: None. LUNGS AND AIRWAYS: The lungs are unremarkable. Airways are normal. PLEURA: The pleural spaces are clear. HEART AND MEDIASTINUM: The thyroid gland is normal. No mediastinal, hilar or axillary lymphadenopathy. The heart is mildly enlarged. There is no pericardial effusion. Aortic valve calc ifications. Minimal calcifications of the aorta and major branches. Fluid in the mid to lower esophageal lumen. HEPATOBILIARY: Hypodense liver. No focal hepatic lesions. No biliary ductal dilation. GALLBLADDER: No radio-opaque stones or sludge. No wall thickening. SPLEEN: No splenomegaly. PANCREAS: Atrophy and fatty replacement of the pancreas. ADRENALS: No adrenal nodules. atrophic adrenal glands. KIDNEYS/URETERS: Kidneys enhance symmetrically. No hydronephrosis. No cystic or solid mass lesions. No stones. GI TRACT: Pancolonic wall thickening, mucosal hyperenhancement, loss of aspiration. Appendix is normal. PELVIC ORGANS/BLADDER: Unremarkable. LYMPH NODES: No lymphadenopathy. VESSELS: Arterial calcifications. PERITONEUM / RETROPERITONEUM: No free air or fluid. BONES: Degenerative changes. Osseous demineralization. SOFT TISSUES: Unremarkable. IMPRESSION: 1. Pancolitis, correlate for inflammatory bowel disease or infection/pseudomembranous colitis. 2. Fluid in the mid to lower esophageal lumen, suggestive of gastroesophageal reflux. 3. Hepatic steatosis. 4. Adrenal and pancreatic atrophy. Considerable hormonal analysis. Signed by: Delfino Hong DO on 10/29/2019 12:12 AM Dictated By: DELFINO HONG DO Transcribed By: BRENDA on 10/29/1911 COPY TO: JYOTI MELVIN DO CT CHEST W 2019-10-29 00:04:00 [place] [address] Patient Name: MISSY CARCAMO MR #: [id number] : 1955 Age/Sex: 64/M Req #: [id number] Adm Physician: Ordered by: JYOTI MELVIN DO Report #: [id number] Location: ER Room/Bed: Procedure: [id number] CT/CT CHEST W Exam Date: 10/28/19 Exam Time: 2216 REPORT STATUS: Signed EXAM: CT Chest, Abdomen and Pelvis WITH contrast INDICATION: Cough, diarrhea COMPARISON: None. TECHNIQUE: Chest, abdomen and pelvis were scanned utilizing a multidetector helical scanner from the lung apex to the pubic symphysis after administration of IV contrast. Coronal and sagittal reformations were obtained. Routine protocol was performed. Scan was performed when during portal venous phase. IV CONTRAST: 100 mL of Isovue 370 ORAL CONTRAST: None COMPLICATIONS: None RADIATION DOSE: Total DLP: 671 mGy*cm Estimated effective dose: (DLP x 0.015 x size factor) mSv CTDIvol has been reviewed. It is below the limits set by the Radiation Protocol Committee (RPC). Dose modulation, iterative reconstruction, and/or weight based adjustment of the mA/kV was utilized to reduce the radiation dose to as low as reasonably achievable. FINDINGS: LINES and TUBES: None. LUNGS AND AIRWAYS: The lungs are unremarkable. Airways are normal. PLEURA: The pleural spaces are clear. HEART AND MEDIASTINUM: The thyroid gland is normal. No mediastinal, hilar or axillary lymphadenopathy. The heart is mildly enlarged. There is no pericardial effusion. Aortic valve calcification s. Minimal calcifications of the aorta and major branches. Fluid in the mid to lower esophageal lumen. HEPATOBILIARY: Hypodense liver. No focal hepatic lesions. No biliary ductal dilation. GALLBLADDER: No radio- opaque stones or sludge. No wall thickening. SPLEEN: No splenomegaly. PANCREAS: Atrophy and fatty replacement of the pancreas. ADRENALS: No adrenal nodules. atrophic adrenal glands. KIDNEYS/URETERS: Kidneys enhance symmetrically. No hydronephrosis. No cystic or solid mass lesions. No stones. GI TRACT: Pancolonic wall thickening, mucosal hyperenhancement, loss of aspiration. Appendix is normal. PELVIC ORGANS/BLADDER: Unremarkable. LYMPH NODES: No lymphadenopathy. VESSELS: Arterial calcifications. PERITONEUM / RETROPERITONEUM: No free air or fluid. BONES: Degenerative changes. Osseous demineralization. SOFT TISSUES: Unremarkable. IMPRESSION: 1. Pancolitis, correlate for inflammatory bowel disease or infection/pseudomembranous colitis. 2. Fluid in the mid to lower esophageal lumen, suggestive of gastroesophageal reflux. 3. Hepatic steatosis. 4. Adrenal and pancreatic atrophy. Considerable hormonal analysis. Signed by: Delfino Hong DO on 10/29/2019 12:12 AM Dictated By: DELFINO HONG DO Transcribed By: BRENDA on 10/29/1911 COPY TO: JYOTI MELVIN DO URINALYSIS COMPLETE 2019-10-24 17:00:00 Test Item UA [...] FEW A Urine Source? Clean CatchBASIC METABOLIC [id number] 11:16:00* Test Item Value Reference Range Interpretation [...] CA) 9.0 mg/dL 8.5-10.1 N HEPATIC FUNCTION [id number] 11:16:00* Test Item Value Reference Range Interpretation [...] reference range due to change in reagent. [id number] 11:16:00* Test Item Value Reference Range Interpretation Comments LIPASE (test code = LIP) 12 U/L 73.0-393.0 L [id number] 11:16:00* Test Item Value Reference Range Interpretation Comments TROPONIN-I (test code = TROPI) <0.015 ng/mL 0-0.045 N BASIC METABOLIC [id number] 11:06:00* Test Item Value Reference Range Interpretation [...] code = CA) mg/dL 8.5-10.1 HEPATIC FUNCTION [id number] 11:06:00* Test Item Value Reference Range Interpretation [...] TOTAL (test code = ALKP) IUnit/L 45-117 [id number] 11:06:00* Test Item Value Reference Range Interpretation Comments LIPASE (test code = LIP) U/L 73.0-393.0 [id number] 11:06:00* Test Item Value Reference Range Interpretation Comments TROPONIN-I (test code = TROPI) ng/mL 0-0.045 CBC W/O [id number] 10:58:00* Test Item Value Reference Range Interpretation [...] MPV) 10.5 fL 6.7-11.0 N CBC W/O [id number] 10:56:00* Test Item Value Reference Range Interpretation [...] This LDL result is a direct measurement.========= [id number] 14:35:00* Test Item Value Reference Range Interpretation Comments TROPONIN-I (test code = TROPI) <0.015 ng/mL 0-0.045 N - CTA [id number] 09:43:00 Name: MISSY CARCAMO [facility] : 1955 Age/S: 63 / M [address] [facility] Unit #: [id number] Loc: [place] [address] Phys: Eva Escobedo MD Acct: [id number] Dis Date: Status: ADM IN PHONE #: [phone] Exam Date: 06/13/2019809 FAX #: [phone] Reason: Stroke EXAMS: CPT CODE: [id number] CTA HEAD 12077 HISTORY: Stroke. COMPARISON: Head CT from same day. Location: [facility]. CTA NECK: 3-D images NOT available. 100 [...] ht vertebral artery at its origin. CTA [place] lis: 3-D images NOT available. Basilar artery is diminutive bu t patent with moderate atherosclerotic change proximally with 50% narrow ing. Flow noted distally. origin of the right HOME HEALTH CARE WORKER with extensive a therosclerotic change in the P2 segment. Left HOME HEALTH CARE WORKER is patent. Left refrigeration mechanic ior communicating artery is patent and the right is absent. Anterior com municating artery is patent. PAGE 1 Signed Re port (CONTINUED) Name: MISSY CARCAMO [facility] : 1955 Age/S: 63 / M [address] [facility] Unit #: [id number] [place]: [place] [address] Phys: Eva Escobedo MD Acct: [id number] Dis Date: Status: ADM IN PHONE #: [phone] Exam Date: 06/13/2019 0810 FAX #: [phone] Reason: Stroke EXAMS: CPT CODE: [id number] CTA HEAD 78476 <Continued> Bilateral petrous ICA and cavernous ICA are widely patent. Moderate atherosclerotic change of the supraclinoid left ICA with 50-60% stenosis. The right supraclinoid ICA is patent. Right MCA and FRED are widely patent. Left FRED and MCA are widely patent as well. No aneurysm. Dural sinuses are patent. IMPRESSION: 50-60% stenosis of the left supraclinoid ICA. Bilateral FRED and MCA and HOME HEALTH CARE WORKER are patent with moderate atherosclerotic changes of the P2 segment on the right with origin. No aneurysm. at 0943 Reported and signed by: Colten Jolly M.D. CC: Eva Escobedo MD; Guanakito Momin; ROBY BAUTISTA Technologist:Salbador Dawkins RT(R),(MR),(CT); CTDI: DLP: Trnscb Date/Time: 06/13/2019 (0943) [email or web address] Orig Print D/T: S: 06/13/2019 (3308) PAGE 2 Signed Report - CTA [id number] 09:43:00 Name: MISSY CARCAMO [facility] : 1955 Age/S: 63 / M [address] [facility] Unit #: [id number] Loc: [place] [address] Phys: Eva Escobedo MD Acct: [id number] Dis Date: Status: ADM IN PHONE #: [phone] Exam Date: 06/13/2019 08 FAX #: [phone] Reason: Stroke EXAMS: CPT CODE: [id number] CTA NECK 02017 HISTORY: Stroke. COMPARISON: Head CT from same day. Location: [facility]. CTA NECK: 3-D images NOT available. 100 [...] ht vertebral artery at its origin. CTA [place] of [place] lis: 3-D images NOT available. Basilar artery is diminutive bu t patent with moderate atherosclerotic change proximally with 50% narrow ing. Flow noted distally. origin of the right HOME HEALTH CARE WORKER with extensive a therosclerotic change in the P2 segment. Left HOME HEALTH CARE WORKER is patent. Left refrigeration mechanic ior communicating artery is patent and the right is absent. Anterior com municating artery is patent. PAGE 1 Signed Re port (CONTINUED) Name: MISSY CARCAMO [facility] : 1955 Age/S: 63 / M [address] Unit #: [id number] Loc: [place] [address] Phys: Eva Escobedo MD Acct: [id number] Dis Date: Status: ADM IN PHONE #: [phone] Exam Date: 06/13/2019809 FAX #: [phone] Reason: Stroke EXAMS: CPT CODE: [id number] CTA NECK 12375 <Continued> Bilateral petrous ICA and cavernous ICA are widely patent. Moderate atherosclerotic change of the supraclinoid left ICA with 50-60% stenosis. The right supraclinoid ICA is patent. Right MCA and FRED are widely patent. Left FRED and MCA are widely patent as well. No aneurysm. Dural sinuses are patent. IMPRESSION: 50-60% stenosis of the left supraclinoid ICA. Bilateral FRED and MCA and HOME HEALTH CARE WORKER are patent with moderate atherosclerotic changes of the P2 segment on the right with origin. No aneurysm. at 0943 Reported and signed by: Colten Jolly M.D. CC: Eva Escobedo MD; Guanakito Momin; ROBY BAUTISTA Technologist:Salbador Dawkins RT(R),(MR),(CT); CTDI: DLP: Trnscb Date/Time: 06/13/2019 (0943) [email or web address] Orig Print D/T: S: 06/13/2019 (0946) PAGE 2 Signed Report - MRI BRAIN W/O [id number] 09:15:00 FAX: Gabriel Dobbs MD [phone] [place]: B St: [facility] FAX: Marianela Veras [phone] Name: MISSY CARCAMO [facility] : 1955 Age/S: 63/M [address] [facility] Unit #: [id number] Loc: [address] [place] [address] Phys: Gabriel Ha MD Acct: [id number] Dis Date: Status: ADM IN PHONE #: [phone] Exam Date: 06/13/2019 09 FAX #: [phone] Reason: left mca infarct EXAMS: CPT CODE: [id number] MRI BRAIN W/O CONTRAST 53514 HISTORY: Left MCA infarct. COMPARISON: Head CT from same day. Location: [facility]. MRI brain without contrast: Large high left [...] ROBY BAUTISTA Technologist: STEFANIA Herzog,RT - MRI Trntnrd Date/Time/By: 06/13/2019 (091 5) : By: [email or web address] Orig Print D/T: S: 06/13/2019 (8132) PAGE 1 Signed Report [id number] 05:58:00* Test Item Value Reference Range Interpretation Comments TROPONIN-I (test code = TROPI) <0.015 ng/mL 0-0.045 N [id number] 22:30:00* Test Item Value Reference Range Interpretation Comments AMMONIA (test code = AMM) 38 umol/L 11-32 H - CT HEAD/BRAIN W/O [id number] 21:57:00 Name: MISSY CARCAMO [facility] : 1955 Age/S: 63 / M [address] [facility] [address] Unit #: [id number] Loc: [address] Phys: Gabriel Ha MD [place], [place] [address] Acct: [id number] Dis Date: Status: REG ER PHONE #: Exam Date: 06/12/2019 6598 FAX #: Reason: Altered Mental Status EXAMS: CPT CODE: [id number] CT HEAD/BRAIN W/O CONT 20710 HISTORY: Altered Mental Status TECHNIQUE: Noncontrast 2.5 [...] D.O. PAGE 1 Signed Report (CONTINUED) Name: MSISY CARCAMO [facility] : 1955 Age/S: 63 / M [address] [facility] [address] Unit #: [id number] Loc: [address] Phys: Gabriel Ha MD [place], [place] [address] Acct: [id number] Dis Date: Status: REG ER PHONE #: Exam Date: 0 06/12/20192142 FAX #: Reason: Altered Men prema Status EXAMS: CPT CODE: [id number] CT HEAD/BRAIN W/O CONT 29876 <Continued> CC: Gabriel Ha MD Technologist:Andreas Thomas CTDI: DLP: Trnscb Date/Time: 06/12/2019 (2156) [email or web address] Orig Print D/T: S: 06/12/2019 (2199) PAGE 2 Signed Report URINALYSIS [id number] 21:56:00* Test Item Value Reference Range Interpretation [...] Urine Source? Clean CatchDRUGS OF ABUSE SCREEN [id number] 21:56:00* Test Item Value Reference Range Interpretation [...] NEGATIVE <300 ng/mL Urine Source? Clean CatchURINALYSIS [id number] 21:52:00* Test Item Value Reference Range Interpretation [...] Urine Source? Clean CatchDRUGS OF ABUSE SCREEN [id number] 21:52:00* Test Item Value Reference Range Interpretation [...] Urine Source? Clean Catch- XR CHEST 1 [id number] 21:51:00 FAX: Gabriel Dobbs MD [phone] [place]: [place] St: REG Name: Cullen CAMARGOAMISSY [facility] : [birth year] Age/S: 63/M [address] Unit #: [id number] Loc: [place] [address] Phys: Gabriel Ha MD [place], [place] [address] Acct: [id number] Dis Date: Status: REG ER PHONE #: Exam Date: 06/12/20192135 FAX #: Reason: Altered Mental Status EXAMS: CPT CODE: [id number] XR CHEST 1 V 52728 HISTORY: Altered Mental Status TECHNIQUE: AP chest [...] 06/12/2019 (2153) PAGE 1 Signed Report URINALYSIS [id number] 21:50:00* Test Item Value Reference Range Interpretation [...] Urine Source? Clean CatchDRUGS OF ABUSE SCREEN [id number] 21:50:00* Test Item Value Reference Range Interpretation [...] <300 ng/mL Urine Source? Clean CatchB-TYPE NATRIURETIC [id number] 21:49:00* Test Item Value Reference Range Interpretation Comments B-TYPE NATRIURETIC PEPTIDE (test code = BNP) 168 pg/mL 0-100 H BASIC METABOLIC [id number] 21:46:00* Test Item Value Reference Range Interpretation [...] CA) 9.5 mg/dL 8.0-10.5 N HEPATIC FUNCTION [id number] 21:46:00* Test Item Value Reference Range Interpretation [...] code = CK) 38 U/L 39-308 L [id number] 21:46:00* Test Item Value Reference Range Interpretation Comments TROPONIN-I (test code = TROPI) <0.015 ng/mL 0.00-0.056 N [id number] 21:46:00* Test Item Value Reference Range Interpretation Comments ACETAMINOPHEN (test code = ACET) < 10 mcg/mL 10-30 L A RANGE OF 10-30 mcg/mL IS A THERAPEUTIC RANGE. TOXIC CONCENTRATIONS: >150 mcg/mL AT 4 HOURS AFTER INGESTION >= 50 mcg/mL AT 12 HOURS AFTER INGESTION [id number] 21:46:00* Test Item Value Reference Range Interpretation Comments SALICYLATE (test code = ANDRE) 0.5 mg/dL 2.8-20.0 L [id number] 21:46:00* Test Item Value Reference Range Interpretation Comments ALCOHOL (test code = ALC) < 3 mg/dL 0-3 N IN TERPRETATION: ETHYL ALCOHOL VALUES 50 MG/DL - NOT INTOXICATED 100 MG/DL - INTOXICATED 350-450 MG/DL- SEVERELY INTOXICATED >= 550 MG/DL - FATAL INTOXICATION BASIC METABOLIC [id number] 21:40:00* Test Item Value Reference Range Interpretation [...] CA) 9.5 mg/dL 8.0-10.5 N HEPATIC FUNCTION [id number] 21:40:00* Test Item Value Reference Range Interpretation [...] (CK) (test code = CK) U/L 39-308 [id number] 21:40:00* Test Item Value Reference Range Interpretation Comments TROPONIN-I (test code = TROPI) ng/mL 0-0.045 [id number] 21:40:00* Test Item Value Reference Range Interpretation Comments ACETAMINOPHEN (test code = ACET) mcg/mL 10-30 [id number] 21:40:00* Test Item Value Reference Range Interpretation Comments SALICYLATE (test code = ANDRE) mg/dL 2.8-20.0 [id number] 21:40:00* Test Item Value Reference Range Interpretation Comments ALCOHOL (test code = ALC) < 3 mg/dL 0-3 N IN TERPRETATION: ETHYL ALCOHOL VALUES 50 MG/DL - NOT INTOXICATED 100 MG/DL - INTOXICATED 350-450 MG/DL- SEVERELY INTOXICATED >= 550 MG/DL - FATAL INTOXICATION BASIC METABOLIC [id number] 21:40:00* Test Item Value Reference Range Interpretation [...] CA) 9.5 mg/dL 8.0-10.5 N HEPATIC FUNCTION [id number] 21:40:00* Test Item Value Reference Range Interpretation [...] (CK) (test code = CK) U/L 39-308 [id number] 21:40:00* Test Item Value Reference Range Interpretation Comments TROPONIN-I (test code = TROPI) ng/mL 0-0.045 [id number] 21:40:00* Test Item Value Reference Range Interpretation Comments ACETAMINOPHEN (test code = ACET) < 10 mcg/mL 10-30 L A RANGE OF 10-30 mcg/mL IS A THERAPEUTIC RANGE. TOXIC CONCENTRATIONS: >150 mcg/mL AT 4 HOURS AFTER INGESTION >= 50 mcg/mL AT 12 HOURS AFTER INGESTION [id number] 21:40:00* Test Item Value Reference Range Interpretation Comments SALICYLATE (test code = ANDRE) 0.5 mg/dL 2.8-20.0 L [id number] 21:40:00* Test Item Value Reference Range Interpretation Comments ALCOHOL (test code = ALC) < 3 mg/dL 0-3 N IN TERPRETATION: ETHYL ALCOHOL VALUES 50 MG/DL - NOT INTOXICATED 100 MG/DL - INTOXICATED 350-450 MG/DL- SEVERELY INTOXICATED >= 550 MG/DL - FATAL INTOXICATION THYROID STIMULATING [id number] 21:39:00* Test Item Value Reference Range Interpretation Comments THYROID STIMULATING HORMONE (test code = TSH) 2.378 uIU/mL 0.36-3.7 4 N TSH REFERENCE RANGES: EUTHYROID: 0.35 - 4.3 mIU/mL HYPO : > 5.5 mIU/mL HYPER : < 0.35 mIU/mL BASIC METABOLIC [id number] 21:39:00* Test Item Value Reference Range Interpretation [...] CA) 9.5 mg/dL 8.0-10.5 N HEPATIC FUNCTION [id number] 21:39:00* Test Item Value Reference Range Interpretation [...] (CK) (test code = CK) U/L 39-308 [id number] 21:39:00* Test Item Value Reference Range Interpretation Comments TROPONIN-I (test code = TROPI) ng/mL 0-0.045 [id number] 21:39:00* Test Item Value Reference Range Interpretation Comments ACETAMINOPHEN (test code = ACET) mcg/mL 10-30 [id number] 21:39:00* Test Item Value Reference Range Interpretation Comments SALICYLATE (test code = ANDRE) mg/dL 2.8-20.0 [id number] 21:39:00* Test Item Value Reference Range Interpretation Comments ALCOHOL (test code = ALC) mg/dL 0-3 CBC W/AUTO [id number] 21:13:00* Test Item Value Reference Range Interpretation [...]
[2019-10-29] MEDS ORDERED: ACETAMINOPHEN 325 MG TAB PO PRN (02:30)
[2019-10-29] MEDS: SODIUM CHLORIDE 0.9% 1000ML 1,000 ML IV SCH ×4 (03:13→23:06)
[2019-10-29] MEDS ORDERED: METOCLOPRAMIDE HCL 10 MG/2ML VIAL IV ONE (03:45)
[2019-10-29 05:32] LABS: BASOPHILS # (AUTO) 0.1 (0.0-0.1); BASOPHILS % 2.2 % (0.0-1.0); EOSINOPHILS % 0.7 % (0.0-6.0); HEMATOCRIT 35.8 % (38.2-49.6); HEMOGLOBIN 11.6 g/dL (14.0-18.0); LYMPHOCYTES # (AUTO) 0.6 (1.0-3.2); LYMPHOCYTES % 14.7 % (18.0-39.1); MEAN CORPUSCULAR HEMOGLOBIN 30.1 pg (28-32); MEAN CORPUSCULAR HGB CONC 32.4 g/dL (31-35); MEAN CORPUSCULAR VOLUME 92.7 fL (81-99); MONOCYTES # (AUTO) 0.3 (0.2-0.8); MONOCYTES % 7.5 % (4.4-11.3); NEUTROPHILS # (AUTO) 3.1 (2.1-6.9); NEUTROPHILS % 73.7 % (38.7-80.0); PLATELET COUNT 202 x10e3/uL (140-360); RED BLOOD COUNT 3.86 x10e6/uL (4.3-5.7); RED CELL DISTRIBUTION WIDTH 13.6 % (11.7-14.4)
[2019-10-29 05:36] LABS: CREATINE KINASE 18 IU/L (30-200)
[2019-10-29 05:51] LABS: ALANINE AMINOTRANSFERASE 29 IU/L (0-55); ALBUMIN 2.2 g/dL (3.5-5.0); ALBUMIN/GLOBULIN RATIO 0.6 (0.8-2.0); ALKALINE PHOSPHATASE 85 IU/L (40-150); BLOOD UREA NITROGEN 16 mg/dL (7-26); BUN/CREATININE RATIO 18 (6-25); CALCIUM 7.9 mg/dL (8.4-10.2); CARBON DIOXIDE 18 mmol/L (22-29); CHLORIDE 109 mmol/L (98-107); CREATININE, SERUM 0.91 mg/dL (0.72-1.25); EST GLOMERULAR FILTRATION RATE > 60 ML/MIN (60-); GLUCOSE 134 mg/dL (74-118); SODIUM 140 mmol/L (136-145)
[2019-10-29] MEDS: METRONIDAZOLE 500MG/NS 100ML 100 ML IV SCH ×4 (06:16→23:06)
[2019-10-29] MEDS: METOCLOPRAMIDE HCL 10 MG/2ML VIAL IV SCH ×4 (06:16→23:06)
[2019-10-29] MEDS ORDERED: DIPHENOXYLATE/ATROPINE TAB PO ONE ×2 (06:45→21:30)
[2019-10-29 07:07] LABS: BASOPHILS # (AUTO) 0.1 (0.0-0.1); BASOPHILS % 1.6 % (0.0-1.0); EOSINOPHILS % 0.9 % (0.0-6.0); HEMATOCRIT 35.9 % (38.2-49.6); HEMOGLOBIN 11.4 g/dL (14.0-18.0); LYMPHOCYTES # (AUTO) 0.6 (1.0-3.2); LYMPHOCYTES % 13.8 % (18.0-39.1); MEAN CORPUSCULAR HEMOGLOBIN 29.8 pg (28-32); MEAN CORPUSCULAR HGB CONC 31.8 g/dL (31-35); MEAN CORPUSCULAR VOLUME 93.7 fL (81-99); MONOCYTES # (AUTO) 0.3 (0.2-0.8); MONOCYTES % 7.5 % (4.4-11.3); NEUTROPHILS # (AUTO) 3.2 (2.1-6.9); NEUTROPHILS % 75.3 % (38.7-80.0); PLATELET COUNT 195 x10e3/uL (140-360); RED BLOOD COUNT 3.83 x10e6/uL (4.3-5.7); RED CELL DISTRIBUTION WIDTH 13.8 % (11.7-14.4)
[2019-10-29 07:17] LABS: INR 2.04; PROTHROMBIN TIME 24.3 seconds (11.9-14.5)
[2019-10-29 07:41] LABS: WBC,FECAL (FECAL LACTOFERRIN) POSITIVE (NEGATIVE)
--- NOTE | 2019-10-29 08:00 | NUR ---
informed Dr. Dixon, h/h 11.4, no new orders at this time, will continue to monitor.
[2019-10-29 08:19] LABS: ANISOCYTOSIS SLIGHT; BAND NEUTROPHILS % (MANUAL) 11 %; EOSINOPHILS % (MANUAL) 1 % (0-7); LYMPHOCYTES % (MANUAL) 15 % (19-48); METAMYELOCYTES % (MANUAL) 1 % (0-0); MONOCYTES % (MANUAL) 8 % (3.4-9.0); NEUTROPHILS % (MANUAL) 63 % (40-74); PLATELET ESTIMATE ADEQUATE; PLATELET MORPHOLOGY COMMENT NORMAL; RBC MORPHOLOGY COMMENT ABNORMAL; TOXIC GRANULATION MODERATE
[2019-10-29] MEDS ORDERED: LEVOFLOXACIN 500MG/D5W 100ML 100 ML IV SCH (09:00)
--- NOTE | 2019-10-29 10:12 | NUR ---
infectious disease consultation Patient examined and chart reviewed Events noted This is a 64 year old male diarrheal illness with hematochezia of one month duratoin . Historian: Patient, Family Member Arrival Mode: Car History limited by: language barrier Sole Rougher Required: No Onset (how long ago): month(s) (1) Radiation: Reports abdomen Severity: moderate Onset quality: gradual Duration (how long): week(s) (4) Timing of current episode: constant Progression: worsening Context: Reports recent illness Relieving factors: none Exacerbating factors: none Associated symptoms: Reports loss of appetite, Reports weakness Treatments prior to arrival: none Previous service: tests performed A 64-year-old male, very poor historian, reports no past medical history, came into the ED with complaints of abdominal pain, ongoing for the last several weeks and diarrhea for 4 to 5 days. He was found to be in AFib with RVR according to the ER note, in which Cardiology has been consulted. He has been reporting some increased diarrhea, but no blood in the stool, liquidy, ongoing for the last several days. His abdominal pain has been going on for several weeks. He did not follow up with the PCP or GI specialist. He denies any chest pain, palpitation, nausea, vomiting, or any fever. The patient is seen and evaluated at bedside on the medical floor. He is currently doing well. He is in IMCU with no other issues at this time. REVIEW OF SYSTEMS: Pertinent positives; abdominal pain and diarrhea. The rest of the 14-point review of systems are reviewed with the patient and are negative. ALLERGIES: NO KNOWN DRUG ALLERGIES. PAST MEDICAL HISTORY: He is a very poor historian. He reports none. PAST SURGICAL HISTORY: Reports none. FAMILY HISTORY: Unknown. HOME MEDICATIONS: He does not take any. SOCIAL HISTORY: He denies drinking, drugs, or any alcohol. PHYSICAL EXAMINATION: VITAL SIGNS: Temperature is 97.7, pulse is 122, respiratory rate is 22, his blood pressure is 116/61, pulse ox 95% on 3 L nasal cannula. GENERAL: No acute distress. Alert and oriented x3. Cooperative on examination. HEENT: Head is normocephalic and atraumatic. Eyes; pupils are equal, round, reactive to light bilaterally. Extraocular movements are intact bilaterally. Throat, no evidence of erythema or exudates in the posterior pharynx. Has poor dentition. NECK: Supple. Good range of motion. PULMONARY: Clear to auscultation bilaterally. No wheezing, rales, or rhonchi. No crackles appreciated. CARDIOVASCULAR: Positive S1 and S2. No murmurs, rubs, or gallops appreciated. ABDOMEN: Soft. It was tender to palpation on examination. Rebound tenderness is not present, but he was tender to palpation. Bowel sounds present. MUSCULOSKELETAL: Strength 5/5 throughout. SKIN: Intact, warm to touch. Good cap refill. LABORATORY FINDINGS: Show white count 4.2, hemoglobin 10.7, hematocrit is 34, and platelets of 195. Coagulation; PT 24, INR 2. Chemistry; sodium 140, potassium 4, chloride 109, bicarb 18, anion gap of 17, BUN is 16, creatinine is 0.91, glucose is 134. Lactic acid now 1.6. LFTs shows calcium is 7.9, total bilirubin is 1, AST 36, ALT 29, alkaline phosphatase 85. Troponins were negative. Albumin was 2.2. Lipase level was less than 4. Urinalysis was negative. Stool lactoferrin was positive. Serology; C. diff toxin negative. Coronavirus was pending. MICROBIOLOGY: Blood cultures, stool ova and parasites are pending. IMAGING STUDIES: CT of the chest showed pancolitis, correlate for inflammatory disease or infectious pseudomembranous colitis. Occlude in the [id number]-dl-brryl esophageal lumen, suggestive of gastroesophageal reflux. Hepatic steatosis. Adrenal and pancreatic atrophy. CT chest and CT abdomen and pelvis were noted with results above. IMPRESSION: 1. Pancolitis with underlying diarrhea/nausea and decreased oral intake. 2. Atrial fibrillation with rapid ventricular response. 3. Nausea, vomiting, dehydration. 4. Hypercoagulopathy. [id number]
[2019-10-29 12:17] LABS: HEMATOCRIT 33.9 % (38.2-49.6); HEMOGLOBIN 10.7 g/dL (14.0-18.0)
[2019-10-29 12:37] LABS: CREATINE KINASE 19 IU/L (30-200)
[2019-10-29 14:31] LABS: C DIFFICILE TOXIN A&B AMP PROB NEGATIVE (NEGATIVE)
--- NOTE | 2019-10-29 14:35 | NUR ---
PATIENTS HEART RATE ELEVATED 150-160'S, INFORMED PATIENT HE CAN NOT GET OUT OF BED AT THIS TIME, AND OFFERED A URINAL TO PATIENT, BUT PATIENT REFUSED, STAFF TRIED TO EXPLAIN TO PATIENT THAT HEART RATE IS ELEVATED, AND IS DANGEROUS FOR PATIENT TO GET OF BED AT THIS TIME. METOPROLOL 5MG IVP given per MD order.
[2019-10-29] MEDS: METOPROLOL TARTRATE INJ 1 MG/ML VIAL IV SCH ×2 (14:44→20:04)
[2019-10-29] MEDS: VANCOMYCIN 250MG/5ML ORAL SOLN PO SCH ×2 (15:11→19:53)
[2019-10-29] MEDS ORDERED: DIGOXIN INJ 0.25 MG/ML 2 ML AMP IV ONE (16:30)
[2019-10-29] MEDS: PANTOPRAZOLE 40 MG 10ML VIAL IV SCH (17:07)
[2019-10-29] MEDS: SUCRALFATE 1 GM/10 ML SUSP NG SCH ×2 (17:07→19:53)
[2019-10-29] MEDS: ENOXAPARIN SOD INJ 40 MG/0.4 ML SYR SC SCH (17:07)
[2019-10-29] MEDS ORDERED: METOPROLOL TART25 MG PO (21:13)
[2019-10-29] MEDS ORDERED: ASPIRIN CHEW81 MG PO (21:13)
[2019-10-29] MEDS ORDERED: ATORVASTATIN CA20 MG PO (21:14)
[2019-10-29] MEDS ORDERED: BACTRIM DS TAB1 EACH PO (21:17)
[2019-10-29] MEDS ORDERED: PREDNISONE20 MG PO (21:17)
[2019-10-29] MEDS: MORPHINE SULFATE INJ 4 MG/ML INJ 1ML IV PRN (21:40)
--- NOTE | 2019-10-29 21:49 | History and Physical ---
CHIEF COMPLAINT: Abdominal pain and diarrhea. HISTORY OF PRESENT ILLNESS: A 64-year-old male, very poor historian, reports no past medical history, came into the ED with complaints of abdominal pain, ongoing for the last several weeks and diarrhea for 4 to 5 days. He was found to be in AFib with RVR according to the ER note, in which Cardiology has been consulted. He has been reporting some increased diarrhea, but no blood in the stool, liquidy, ongoing for the last several days. His abdominal pain has been going on for several weeks. He did not follow up with the PCP or GI specialist. He denies any chest pain, palpitation, nausea, vomiting, or any fever. The patient is seen and evaluated at bedside on the medical floor. He is currently doing well. He is in IMCU with no other issues at this time. REVIEW OF SYSTEMS: Pertinent positives; abdominal pain and diarrhea. The rest of the 14-point review of systems are reviewed with the patient and are negative. ALLERGIES: NO KNOWN DRUG ALLERGIES. PAST MEDICAL HISTORY: He is a very poor historian. He reports none. PAST SURGICAL HISTORY: Reports none. FAMILY HISTORY: Unknown. HOME MEDICATIONS: He does not take any. SOCIAL HISTORY: He denies drinking, drugs, or any alcohol. PHYSICAL EXAMINATION: VITAL SIGNS: Temperature is 97.7, pulse is 122, respiratory rate is 22, his blood pressure is 116/61, pulse ox 95% on 3 L nasal cannula. GENERAL: No acute distress. Alert and oriented x3. Cooperative on examination. HEENT: Head is normocephalic and atraumatic. Eyes; pupils are equal, round, reactive to light bilaterally. Extraocular movements are intact bilaterally. Throat, no evidence of erythema or exudates in the posterior pharynx. Has poor dentition. NECK: Supple. Good range of motion. PULMONARY: Clear to auscultation bilaterally. No wheezing, rales, or rhonchi. No crackles appreciated. CARDIOVASCULAR: Positive S1 and S2. No murmurs, rubs, or gallops appreciated. ABDOMEN: Soft. It was tender to palpation on examination. Rebound tenderness is not present, but he was tender to palpation. Bowel sounds present. MUSCULOSKELETAL: Strength 5/5 throughout. SKIN: Intact, warm to touch. Good cap refill. LABORATORY FINDINGS: Show white count 4.2, hemoglobin 10.7, hematocrit is 34, and platelets of 195. Coagulation; PT 24, INR 2. Chemistry; sodium 140, potassium 4, chloride 109, bicarb 18, anion gap of 17, BUN is 16, creatinine is 0.91, glucose is 134. Lactic acid now 1.6. LFTs shows calcium is 7.9, total bilirubin is 1, AST 36, ALT 29, alkaline phosphatase 85. Troponins were negative. Albumin was 2.2. Lipase level was less than 4. Urinalysis was negative. Stool lactoferrin was positive. Serology; C. diff toxin negative. Coronavirus was pending. MICROBIOLOGY: Blood cultures, stool ova and parasites are pending. IMAGING STUDIES: CT of the chest showed pancolitis, correlate for inflammatory disease or infectious pseudomembranous colitis. Occlude in the [id number]-te-[id number] esophageal lumen, suggestive of gastroesophageal reflux. Hepatic steatosis. Adrenal and pancreatic atrophy. CT chest and CT abdomen and pelvis were noted with results above. IMPRESSION: 1. Pancolitis with underlying diarrhea/nausea and decreased oral intake. 2. Atrial fibrillation with rapid ventricular response. 3. Nausea, vomiting, dehydration. 4. Hypercoagulopathy. PLAN: At this time, make the patient n.p.o., pain control. He has been given some loperamide. IV fluids, antibiotics has been arranged. GI and ID has been consulted. For his AFib, Cardiology has been consulted, rate control medications have been initiated. Put on Lovenox for DVT prophylaxis. Make him n.p.o. as he still has abdominal pain, currently on clear liquid diet. We will get morning labs and monitor closely. MD LANA Solorio/MODL /[id number]
[2019-10-29] MEDS ORDERED: SUCRALFATE 1 GM TAB PO STA (22:37)
--- NOTE | 2019-10-29 22:45 | Consultation ---
DATE OF CONSULTATION: Cardiology Consultation REASON FOR CONSULTATION: Atrial fibrillation. HISTORY OF PRESENT ILLNESS: This is a 64-year-old man, who presented with abdominal discomfort, diarrhea, hematochezia off and on for approximately one month. He was found to be in atrial fibrillation, which prompted our consultation. The patient does not report any prior cardiovascular disease. He currently reports abdominal pain. No chest pain. Some palpitations. PAST MEDICAL HISTORY: As stated above in the HPI. PAST SURGICAL HISTORY: None recent. FAMILY HISTORY: Noncontributory to current illness. SOCIAL HISTORY: No illicit drug, alcohol, or tobacco use. ALLERGIES: NO KNOWN DRUG ALLERGIES. MEDICATIONS: See medication reconciliation form. PHYSICAL EXAMINATION: VITAL SIGNS: Temperature is 97, heart rate is ranging from 97 to 122, respirations are 22, blood pressure is 116/61, oxygen saturation is 95% on 3 L nasal cannula. GENERAL: He is well appearing, in no apparent distress. Alert and oriented x3. HEENT: Head is normocephalic and atraumatic. Eyes, the extraocular movements intact. Conjunctivae are clear. NECK: No JVD. No bruits. CARDIOVASCULAR: Irregularly irregular. Tachycardic. LUNGS: Clear to auscultation. ABDOMEN: Soft, nontender, nondistended. EXTREMITIES: No clubbing, cyanosis, or edema. NEUROLOGIC: No focal deficits noted. LABORATORY DATA: Reviewed. Hemoglobin is 10.7, creatinine 0.91, potassium 4. Troponins negative x3. A 12-lead electrocardiogram showed atrial fibrillation with rapid ventricular response. CT of the chest shows pancolitis. Mild cardiomegaly. No pericardial effusions, aortic valve calcifications, minimal calcification of the aorta, major branches. IMPRESSION: 1. Atrial fibrillation with rapid ventricular response. 2. Colitis. 3. Anemia. 4. Diarrhea. 5. Sepsis. 6. Aortic sclerosis. RECOMMENDATIONS: The patient is currently n.p.o. We will schedule metoprolol 5 mg IV q.6 hours. We will also give a dose of digoxin for rate reduction. No anticoagulation at this point in time given a history of hematochezia and anemia. We will check a 2D echocardiogram. Continue infectious and colitis treatment per primary team. Fausto Hurd DO BM/MODL /[id number]
--- NOTE | 2019-10-29 22:53 | NUR ---
PATIENT'S CALLED AND INFORMED HER ABOUT PT CONDITION. WAS ABLE TO OBTAIN PT HOME MED LIST FROM HER AND ALL RECENT MEDS TAKEN. STATES PT HAD A CVA IN JUNE AND WAS IN [facility] FOR 4 DAYS THEN WENT HOME WITH METOPROLOL, LIPITOR AND BABY ASPIRIN DAILY. PT THEN WAS SEEN IN [facility] ER AND GIVEN BACTRIM ATB WITH PREDNISONE AND LOPERAMIDE FOR THE LOOSE STOOLS. DR VILLAGOMEZ CAME TO SEE PT AND WAS ED THAT PT WAS ON ORAL VANCO BUT CDIFF NEG STATES TO NOTATE ON THE CHART OF CDIFF NEG STATUS BC THIS WAS NOT HIS COURSE OF TREATMENT TO LET DR WALSH AND BURT KNOW.
[2019-10-30] VITALS (9 sets, daily range): BP systolic 108–129; BP diastolic 56–70
[2019-10-30] MEDS: METOPROLOL TARTRATE INJ 1 MG/ML VIAL IV SCH ×3 (01:31→14:34)
[2019-10-30] MEDS: VANCOMYCIN 250MG/5ML ORAL SOLN PO SCH ×4 (01:31→20:00)
[2019-10-30] MEDS ORDERED: DIPHENOXYLATE/ATROPINE TAB PO STA (04:01)
[2019-10-30] MEDS: METRONIDAZOLE 500MG/NS 100ML 100 ML IV SCH ×3 (04:18→16:59)
[2019-10-30] MEDS: METOCLOPRAMIDE HCL 10 MG/2ML VIAL IV SCH ×3 (04:19→16:59)
[2019-10-30] MEDS: MORPHINE SULFATE INJ 4 MG/ML INJ 1ML IV PRN ×2 (04:19→07:57)
[2019-10-30 06:09] LABS: EOSINOPHILS % 0.2 % (0.0-6.0); HEMATOCRIT 34.6 % (38.2-49.6); HEMOGLOBIN 11.2 g/dL (14.0-18.0); LYMPHOCYTES # (AUTO) 0.9 (1.0-3.2); LYMPHOCYTES % 15.5 % (18.0-39.1); MEAN CORPUSCULAR HGB CONC 32.4 g/dL (31-35); MEAN CORPUSCULAR VOLUME 92.8 fL (81-99); MONOCYTES # (AUTO) 0.3 (0.2-0.8); MONOCYTES % 5.2 % (4.4-11.3); NEUTROPHILS # (AUTO) 4.6 (2.1-6.9); NEUTROPHILS % 77.6 % (38.7-80.0); PLATELET COUNT 193 x10e3/uL (140-360); RED BLOOD COUNT 3.73 x10e6/uL (4.3-5.7); RED CELL DISTRIBUTION WIDTH 13.7 % (11.7-14.4)
[2019-10-30 06:34] LABS: ALANINE AMINOTRANSFERASE 17 IU/L (0-55); ALBUMIN/GLOBULIN RATIO 0.6 (0.8-2.0); ALKALINE PHOSPHATASE 66 IU/L (40-150); ANION GAP 14.6 mmol/L (8-16); BLOOD UREA NITROGEN 6 mg/dL (7-26); BUN/CREATININE RATIO 8 (6-25); CALCIUM 7.7 mg/dL (8.4-10.2); CARBON DIOXIDE 19 mmol/L (22-29); CHLORIDE 108 mmol/L (98-107); EST GLOMERULAR FILTRATION RATE > 60 ML/MIN (60-); GLUCOSE 82 mg/dL (74-118); POTASSIUM 3.6 mmol/L (3.5-5.1); SODIUM 138 mmol/L (136-145)
[2019-10-30 06:43] LABS: INR 2.42; PROTHROMBIN TIME 27.9 seconds (11.9-14.5)
[2019-10-30] MEDS: SUCRALFATE 1 GM/10 ML SUSP NG SCH ×5 (07:30→20:48)
[2019-10-30] MEDS ORDERED: SUCRALFATE 1 GM TAB PO SCH (07:30)
[2019-10-30] MEDS: SODIUM CHLORIDE 0.9% 1000ML 1,000 ML IV SCH ×2 (07:56→16:50)
[2019-10-30] MEDS: ONDANSETRON HCL INJ 2MG/ML 2ML 2 MG/ML VIAL IV PRN (07:56)
[2019-10-30] MEDS: PANTOPRAZOLE 40 MG 10ML VIAL IV SCH ×2 (07:56→16:50)
[2019-10-30] MEDS: DIPHENOXYLATE/ATROPINE TAB PO PRN ×2 (07:56→11:52)
[2019-10-30] MEDS ORDERED: POTASSIUM CHLORIDE 20MEQ/100ML 100 ML IV ONE (12:15)
[2019-10-30] MEDS ORDERED: DIGOXIN INJ 0.25 MG/ML 2 ML AMP IV NR (12:15)
--- NOTE | 2019-10-30 12:47 | Progress Note ---
DATE: Cardiology Progress Note. SUBJECTIVE: The patient feeling better. Abdominal discomfort improved. OBJECTIVE: VITAL SIGNS: Temperature is 97.7, heart rate is ranging from 96 to 105, respiratory rate is 18, blood pressure is 108/62, oxygen saturation is 97% on room air. GENERAL: Well appearing, no apparent distress. CARDIOVASCULAR: Irregularly irregular. LUNGS: Clear to auscultation. ABDOMEN: Soft, mildly tender. EXTREMITIES: Trace edema. CARDIOVASCULAR MEDICATIONS: Reviewed include metoprolol tartrate 5 mg IV q.6 hours. LABORATORY DATA: Reviewed: Hemoglobin 11.2. Potassium 3.6. IMAGING: Telemetry monitoring shows atrial fibrillation with rapid ventricular response. Echocardiogram showed preserved left ventricular systolic function with estimated ejection fraction of 50% to 55% with mild aortic regurgitation and mild mitral regurgitation. IMPRESSION: 1. Atrial fibrillation. 2. Colitis. 3. Anemia. 4. Diarrhea. 5. Sepsis. 6. Aortic regurgitation. 7. Mitral regurgitation. RECOMMENDATIONS: The patient is n.p.o. currently. Continue scheduled metoprolol 5 mg IV q.6 hours. We will give 20 mEq of potassium and 0.25 mg of digoxin for better rate control. No anticoagulation is indicated at this point in time given his history of hematochezia and anemia. Continue infectious colitis treatment per primary team. DO SERGIO Miranda/ISRAEL /[id number]
--- NOTE | 2019-10-30 16:33 | Progress Note ---
DATE: SUBJECTIVE: Mr. Roberts remains with diarrhea. No new complaints. He is feeling better, but he did have some abdominal discomfort. REVIEW OF SYSTEMS: Otherwise suggest weakness. LABORATORY DATA: His blood cultures are negative. His C difficile came back negative. His sodium 138, potassium 3.6, creatinine 0.8. His white count is 5.9, hemoglobin 11.2. CAT scan of the abdomen and pelvis, which was done showed pancolitis, infection versus other. PHYSICAL EXAMINATION: GENERAL: Currently alert, oriented. VITAL SIGNS: Stable, afebrile. HEENT: He is not icteric. NECK: Supple. CHEST: Crackles bilateral. HEART: S1 and S2. No S3, S4, or murmur. ABDOMEN: Soft. IMPRESSION: Colitis, continue IV Flagyl. Hold oral vancomycin. Recheck CBC. Recheck Chem panel. We will give Pepto-Bismol 1 p.o. q.6 hours. Discontinue Imodium . We will follow clinically. MD SALVATORE Bowden/ISRAEL /[id number]
[2019-10-30] MEDS: METOPROLOL SUCCINATE 25 MG TAB XL PO SCH (16:50)
[2019-10-30] MEDS: CEFTRIAXONE SOD 1 GM/NS 50 ML 50 ML IV SCH (16:50)
[2019-10-30] MEDS: ENOXAPARIN SOD INJ 40 MG/0.4 ML SYR SC SCH (16:50)
--- NOTE | 2019-10-30 16:58 | Progress Note ---
DATE: 10/30/2019 Medicine Progress Note SUBJECTIVE: The patient's abdominal pain is much improved. He is still having diarrhea, but now he is on Pepto-Bismol, which was ordered by the consultants. His heart rate is much improved. We will start him on a clear liquid diet. PHYSICAL EXAMINATION: VITAL SIGNS: He is afebrile, pulse 98, respiratory rate is 18, blood pressure 108/63, and pulse ox 97% on room air. GENERAL: Not in acute distress. Alert and oriented x3. Cooperative on examination. HEENT: Head; normocephalic, atraumatic. Eyes; pupils are equal, round, and reactive to light bilaterally. PULMONARY: Clear to auscultation bilaterally. No wheezing, no rales, no rhonchi, no crackles appreciated. CARDIOVASCULAR: Positive S1 and S2. He does have an irregularly irregular heart rhythm. ABDOMEN: Soft. It was nontender to palpation. Bowel sounds present. MUSCULOSKELETAL: Strength is 5/5 throughout. NEUROLOGIC: Alert and oriented x3. LABORATORY FINDINGS: Show white count was 5, hemoglobin 11, hematocrit is 34, and platelets of 193. Chemistry reviewed, stable. C. difficile was negative. Coronavirus is pending. MICROBIOLOGY: Blood cultures, no growth. Stool ova and parasites are pending. IMPRESSION: 1. Pancolitis with underlying diarrhea with associated nausea and decreased oral intake. 2. Atrial fibrillation with rapid ventricular response. 3. Nausea, vomiting, and dehydration. 4. Hypercoagulable and supratherapeutic INR. PLAN: At this time, his abdominal pain is improved. He is on antibiotics, being managed by ID as well as GI. His diarrhea is improving. Advance him to clear liquid diet. As for his atrial fibrillation, his heart rate is better controlled. Since now he is going to be on a diet, we will discontinue IV metoprolol and put him on Toprol-XL. He is not a candidate for anticoagulation because his INR is already therapeutic at 2.4. This is all likely secondary to his liver cirrhosis. He is on Lovenox for DVT prophylaxis. Advance diet to clear liquids. Get a.m. labs. MD LANA Solorio/MODL /[id number]
--- NOTE | 2019-10-30 18:13 | Consultation ---
DATE OF CONSULTATION: 10/29/2019 The patient was seen and examined on October 28. This was dictated the next day. HISTORY OF PRESENT ILLNESS: He is a 64-year-old male, really poor historian, comes into the emergency room with abdominal pain and diarrhea. The patient was seen and examined. Chart reviewed. REVIEW OF SYSTEMS: Could not be obtained. PHYSICAL EXAMINATION: GENERAL: Currently alert. VITAL SIGNS: Stable. HEENT: Normocephalic. Not icteric. NECK: Supple. CHEST: Few crackles bilaterally. HEART: S1, S2. LABORATORY DATA: Reviewed. IMAGING DATA: CAT scan reviewed. IMPRESSION AND PLAN: 1. Colitis, concerned about Clostridium difficile colitis. Start the patient on Flagyl 5 mg IV q.6 hours. Start the patient on oral vancomycin. Test stools for Clostridium difficile. Supportive care. 2. Atrial fibrillation and dehydration. Continue with orders. Please refer to the orders on the chart. We will follow with you. Thank you for asking me to see this patient. MD SALVATORE Bowden/ISRAEL /[id number]
--- NOTE | 2019-10-30 20:00 | NUR ---
INITIAL ASSESSMENT COMPLETE, PT ON TELE AT BEDSIDE, VS WNL, NO PAIN OR DISCOMFORT VERBALIZED, NO EDEMA, IV INFUSING, CALL LIGHT IN REACH, NO DISTRESS NOTED,
[2019-10-30] MEDS ORDERED: PHYTONADIONE 10MG/ML 20 MG in SODIUM CHLORIDE 0.9% 50ML 50 ML IV ONE (20:15)
--- NOTE | 2019-10-30 22:15 | NUR ---
Patient transferred to unit to room 204. A&Ox3, no issues or concerns noted. Oriented to room, environment and call light. Instructed patient to call for assistance or on the onset of pain or SOB. Call light within reach. Teaching provided on pain and fall/safety.
--- NOTE | 2019-10-30 22:15 | NUR ---
PT TRANSFERED TO ROOM 204, REPORT CALLED TO KAREEM CAMPBELL, IV INTACT,
[2019-10-31] VITALS (7 sets, daily range): BP systolic 114–133; BP diastolic 67–83
[2019-10-31] MEDS: METRONIDAZOLE 500MG/NS 100ML 100 ML IV SCH ×4 (00:08→19:46)
[2019-10-31] MEDS: METOCLOPRAMIDE HCL 10 MG/2ML VIAL IV SCH ×5 (00:08→23:33)
[2019-10-31] MEDS: ALBUMIN 25% 25GM 100ML 0.25 GM/ML BTL IV SCH ×3 (00:30→12:00)
[2019-10-31] MEDS: SODIUM CHLORIDE 0.9% 1000ML 1,000 ML IV SCH ×3 (01:29→12:00)
[2019-10-31] MEDS: VANCOMYCIN 250MG/5ML ORAL SOLN PO SCH ×3 (01:51→14:27)
[2019-10-31 06:59] LABS: BASOPHILS # (AUTO) 0.1 (0.0-0.1); BASOPHILS % 1.3 % (0.0-1.0); EOSINOPHILS # (AUTO) 0.1 (0.0-0.4); EOSINOPHILS % 0.9 % (0.0-6.0); HEMATOCRIT 30.7 % (38.2-49.6); HEMOGLOBIN 9.9 g/dL (14.0-18.0); LYMPHOCYTES # (AUTO) 0.6 (1.0-3.2); LYMPHOCYTES % 11.2 % (18.0-39.1); MEAN CORPUSCULAR HEMOGLOBIN 29.9 pg (28-32); MEAN CORPUSCULAR HGB CONC 32.2 g/dL (31-35); MEAN CORPUSCULAR VOLUME 92.7 fL (81-99); MONOCYTES # (AUTO) 0.3 (0.2-0.8); MONOCYTES % 5.4 % (4.4-11.3); NEUTROPHILS # (AUTO) 4.1 (2.1-6.9); NEUTROPHILS % 75.4 % (38.7-80.0); PLATELET COUNT 171 x10e3/uL (140-360); RED BLOOD COUNT 3.31 x10e6/uL (4.3-5.7); RED CELL DISTRIBUTION WIDTH 14.3 % (11.7-14.4)
--- NOTE | 2019-10-31 07:15 | NUR ---
Bedside report and walking rounds completed with oncoming nurse. Patient in bed with call light within reach. No issues or concerns noted.
[2019-10-31 07:19] LABS: INR 1.8
[2019-10-31 07:35] LABS: ANION GAP 14.4 mmol/L (8-16); BLOOD UREA NITROGEN 6 mg/dL (7-26); BUN/CREATININE RATIO 8 (6-25); CALCIUM 7.5 mg/dL (8.4-10.2); CARBON DIOXIDE 18 mmol/L (22-29); CHLORIDE 110 mmol/L (98-107); CREATININE, SERUM 0.77 mg/dL (0.72-1.25); EST GLOMERULAR FILTRATION RATE > 60 ML/MIN (60-); GLUCOSE 82 mg/dL (74-118); POTASSIUM 3.4 mmol/L (3.5-5.1); SODIUM 139 mmol/L (136-145)
[2019-10-31] MEDS: BISMUTH SUBSALICYLATE 262 MG TAB PO PRN (10:42)
[2019-10-31] MEDS: SUCRALFATE 1 GM/10 ML SUSP NG SCH ×4 (10:42→20:33)
[2019-10-31] MEDS: METOPROLOL SUCCINATE 25 MG TAB XL PO SCH (10:42)
[2019-10-31] MEDS: PANTOPRAZOLE 40 MG 10ML VIAL IV SCH ×2 (10:42→17:30)
[2019-10-31] MEDS: CEFTRIAXONE SOD 1 GM/NS 50 ML 50 ML IV SCH (17:30)
[2019-10-31] MEDS: ENOXAPARIN SOD INJ 40 MG/0.4 ML SYR SC SCH (17:30)
--- NOTE | 2019-10-31 17:35 | Progress Note ---
DATE: SUBJECTIVE: The patient is seen and evaluated. Available labs and notes reviewed. REVIEW OF SYSTEMS: No nausea, vomiting, fever, chills, chest pain, shortness of breath, headache, rash, or dysuria. Appetite is good, however, did not eat much of a lunch because did not like the option. Also, still has mild epigastric discomfort. MEDICATIONS: Medication list reviewed and from ID point of view, the patient is on vancomycin p.o., Flagyl, and Rocephin. PHYSICAL EXAMINATION: GENERAL: Alert and oriented, very pleasant. CV: S1 and S2. CHEST: Equal expansion. Clear to auscultation. No acute distress. ABDOMEN: Soft and nontender. No distention. HEENT: Moist. No pallor. No JVD. EXTREMITIES: No obvious acute finding. LABORATORY STUDIES: White count of 5.38 and creatinine of 0.77. Serology; C. difficile negative on 10/28. COVID-19 PCR negative on 10/27. Blood culture negative [address] of abdomen and pelvis showed pancolitis with some fluid in the mid to lower esophageal lumen, suggestive of GERD. ASSESSMENT AND PLAN: 1. Pancolitis per CT, however, Clostridium difficile was negative. We will stop vancomycin. Continue with Flagyl and Rocephin. 2. Atrial fibrillation. 3. Dehydration. 4. Debility. Case discussed with Dr. Maldonado. Please refer to chart for more information. Dictated by Ti Espinoza PA-C (Al) Gayla Maldonado MD /MODL /[id number]
[2019-10-31] MEDS ORDERED: METOPROLOL TARTRATE 25 MG TAB PO ONE (17:45)
--- NOTE | 2019-10-31 17:54 | Progress Note ---
DATE: 10/31/2019 Cardiology Progress Note. SUBJECTIVE: The patient denies chest pain or shortness of breath. OBJECTIVE: VITAL SIGNS: Temperature 98.4 degrees, pulse 112, respiratory rate 16, blood pressure 124/71, oxygen 97% on room air. GENERAL: Awake, alert, in no distress. LUNGS: Clear to auscultation bilaterally. No wheezes or crackles. CARDIOVASCULAR: Normal rate, irregularly irregular. No murmur. Normal S1, S2. ABDOMEN: Soft and nontender. EXTREMITIES: No edema. CARDIAC MEDICATIONS: Metoprolol succinate 25 mg p.o. daily and enoxaparin 40 mg subcu daily. LABORATORY DATA: WBC 5.38, hemoglobin 9.9, hematocrit 30.7, platelets 171. Sodium 139, potassium 3.4, chloride 110, CO2 of 18, BUN 6, creatinine 0.77. TELEMETRY: Telemetry was personally reviewed and interpreted, revealing atrial fibrillation. IMPRESSION: 1. Atrial fibrillation. 2. Clostridium difficile colitis. 3. Sepsis secondary to above. 4. Aortic regurgitation. 5. Mitral regurgitation. 6. Anemia. RECOMMENDATIONS: Echo demonstrated preserved LV systolic function with mild aortic and mitral regurgitation. Monitor patient closely on telemetry and continue metoprolol for rate control. The patient is not currently on anticoagulation, given history of hematochezia and anemia. His CHADS-VASc score is 0. Antibiotics per Infectious Disease. Continue supportive care. Thank you for this consult. We will continue to follow. Nurys Acosta MD ABS/MODL /[id number]
[2019-10-31] MEDS: ALBUMIN 25% 25GM 100ML 100 ML IV SCH ×2 (18:35→23:33)
--- NOTE | 2019-10-31 19:00 | NUR ---
Resumed care of patient. Patient awake and ambulating around room, no s/s of distress at this time. Instructed to call for assistance if needed, verbalized understanding. All safety measures in place.
[2019-10-31] MEDS ORDERED: SODIUM CHLORIDE 0.9% 50ML 50 ML ONE ×2 (23:25)
[2019-11-01] VITALS (9 sets, daily range): BP systolic 105–149; BP diastolic 58–86
[2019-11-01] MEDS: METRONIDAZOLE 500MG/NS 100ML 100 ML IV SCH ×5 (00:41→23:34)
--- NOTE | 2019-11-01 00:46 | NUR ---
Received orders from Dr. Dixon to advance patient to GI soft diet.
--- NOTE | 2019-11-01 00:48 | NUR ---
Received orders from Dr. Dixon to give 2 Lomotil for diarrhea.
[2019-11-01] MEDS ORDERED: DIPHENOXYLATE/ATROPINE TAB PO ONE (01:00)
[2019-11-01] MEDS ORDERED: DICYCLOMINE HCL 20 MG TAB PO ONE (01:00)
--- NOTE | 2019-11-01 01:02 | Progress Note ---
DATE: 10/31/2019 Medicine Progress Note. SUBJECTIVE: The patient is doing well. His diarrhea has decreased tremendously. He has left abdominal pain. He is eager to go home soon. Diet has been advanced. PHYSICAL EXAMINATION: VITAL SIGNS: Temperature is 97.5, pulse 94, respiratory rate 20, blood pressure 132/83, pulse ox 99% on room air. GENERAL: In no acute distress, alert and oriented x3, he is cooperative on examination. HEENT: Head is normocephalic and atraumatic. Eyes; pupils are equal, round, and reactive to light bilaterally. Extraocular movements intact bilaterally. Throat; no evidence of erythema or exudates in the posterior pharynx. Has poor dentition. NECK: Supple. Good range of motion. PULMONARY: Clear to auscultation bilaterally. No wheezing, no rales, no rhonchi, no crackles appreciated. CARDIOVASCULAR: Positive S1 and S2. No murmurs, rubs, or gallops appreciated. ABDOMEN: Soft, nondistended, and nontender to palpation. Bowel sounds present. MUSCULOSKELETAL: Strength is 5/5 throughout. No evidence of any muscle deficits on examination. No weakness appreciated. NEUROLOGIC: Cranial nerves II through XII grossly intact. No evidence of any neurological deficits on exam. LABORATORY FINDINGS: Show white count 5.3, hemoglobin 9.9, hematocrit 30.7 and platelets of 171,000. Sodium 139, potassium 3.4, chloride 110, bicarb 18, anion gap of 14, BUN 6, creatinine 0.77, glucose is 82, lactic acid 1.9, calcium 7.5. C diff was negative. MICROBIOLOGY: Blood cultures, no growth. IMPRESSION: 1. Pancolitis with underlying diarrhea with associated nausea and decreased oral intake. 2. Atrial fibrillation with rapid ventricular response. 3. Nausea, vomiting, and dehydration. 4. Hypercoagulable with supratherapeutic INR. PLAN: At this time, his diarrhea is improved. Continue with Pepto-Bismol. He is on IV antibiotic therapy, antinausea medication, IV fluids. Continue with rate control medications. Anticoagulation per Cardiology. Advance diet to full liquid for now. Put on Lovenox for DVT prophylaxis. Get morning labs. Josiah Daniel MD JSYaniv/MODL /[id number]
[2019-11-01] MEDS ORDERED: PHYTONADIONE 10 MG/ML AMP SQ ONE (01:15)
[2019-11-01] MEDS: METOCLOPRAMIDE HCL 10 MG/2ML VIAL IV SCH ×4 (05:44→23:34)
[2019-11-01] MEDS: SODIUM CHLORIDE 0.9% 1000ML 1,000 ML IV SCH ×3 (05:44→16:35)
[2019-11-01 06:24] LABS: BASOPHILS # (AUTO) 0.1 (0.0-0.1); BASOPHILS % 1.3 % (0.0-1.0); EOSINOPHILS % 0.3 % (0.0-6.0); HEMATOCRIT 33.7 % (38.2-49.6); HEMOGLOBIN 10.7 g/dL (14.0-18.0); LYMPHOCYTES # (AUTO) 1.2 (1.0-3.2); LYMPHOCYTES % 17.5 % (18.0-39.1); MEAN CORPUSCULAR HEMOGLOBIN 29.2 pg (28-32); MEAN CORPUSCULAR HGB CONC 31.8 g/dL (31-35); MEAN CORPUSCULAR VOLUME 92.1 fL (81-99); MONOCYTES # (AUTO) 0.4 (0.2-0.8); MONOCYTES % 5.7 % (4.4-11.3); NEUTROPHILS # (AUTO) 4.7 (2.1-6.9); PLATELET COUNT 214 x10e3/uL (140-360); RED BLOOD COUNT 3.66 x10e6/uL (4.3-5.7); RED CELL DISTRIBUTION WIDTH 14.5 % (11.7-14.4)
[2019-11-01 06:46] LABS: ALANINE AMINOTRANSFERASE 9 IU/L (0-55); ALBUMIN 3.6 g/dL (3.5-5.0); ALBUMIN/GLOBULIN RATIO 1.6 (0.8-2.0); ALKALINE PHOSPHATASE 43 IU/L (40-150); BLOOD UREA NITROGEN < 5 mg/dL (7-26); CALCIUM 8.2 mg/dL (8.4-10.2); CARBON DIOXIDE 17 mmol/L (22-29); CHLORIDE 107 mmol/L (98-107); CREATININE, SERUM 0.81 mg/dL (0.72-1.25); EST GLOMERULAR FILTRATION RATE > 60 ML/MIN (60-); GLUCOSE 100 mg/dL (74-118); SODIUM 140 mmol/L (136-145)
[2019-11-01 06:48] LABS: BUN/CREATININE RATIO 6 (6-25)
--- NOTE | 2019-11-01 07:06 | NUR ---
Bedside report given to oncoming nurse. Patient awake and resting in bed, no s/s of distress at this time. All safety measures in place.
[2019-11-01] MEDS ORDERED: METOPROLOL SUCCINATE 25 MG TAB XL PO SCH (09:00)
[2019-11-01] MEDS: PANTOPRAZOLE 40 MG 10ML VIAL IV SCH ×2 (09:07→16:35)
[2019-11-01] MEDS: DICYCLOMINE HCL 20 MG TAB PO SCH ×4 (09:07→20:48)
[2019-11-01] MEDS: SUCRALFATE 1 GM/10 ML SUSP NG SCH ×4 (09:07→20:48)
[2019-11-01] MEDS: METOPROLOL SUCCINATE 50 MG TAB XL PO SCH (09:08)
[2019-11-01 10:40] LABS: BAND NEUTROPHILS % (MANUAL) 1 %; LYMPHOCYTES % (MANUAL) 17 % (19-48); MONOCYTES % (MANUAL) 8 % (3.4-9.0); MYELOCYTES % (MANUAL) 5 % (0-0); NEUTROPHILS % (MANUAL) 65 % (40-74); PLATELET ESTIMATE ADEQUATE; PLATELET MORPHOLOGY COMMENT RARE EDTA CLUMPING; RBC MORPHOLOGY COMMENT NORMAL
--- NOTE | 2019-11-01 13:32 | NUR ---
infectious disease progress note patient seen and examined chart reviewed. Patient with no new complaints patient was evaluated. Laboratory to review her chart reviewed he patient is seen and evaluated. Available labs and notes reviewed. REVIEW OF SYSTEMS: No nausea, vomiting, fever, chills, chest pain, shortness of breath, headache, rash, or dysuria. Appetite is good, however, did not eat much of a lunch because did not like the option. Also, still has mild epigastric discomfort. MEDICATIONS: Medication list reviewed and from ID point of view, the patient is on vancomycin p.o., Flagyl, and Rocephin. PHYSICAL EXAMINATION: GENERAL: Alert and oriented, very pleasant. CV: S1 and S2. CHEST: Equal expansion. Clear to auscultation. No acute distress. ABDOMEN: Soft and nontender. No distention. HEENT: Moist. No pallor. No JVD. EXTREMITIES: No obvious acute finding. LABORATORY STUDIES: White count of 5.38 and creatinine of 0.77. Serology; C. difficile negative on 10/28. COVID-19 PCR negative on 10/27. Blood culture negative [address] of abdomen and pelvis showed pancolitis with some fluid in the mid to lower esophageal lumen, suggestive of GERD. ASSESSMENT AND PLAN: 1. Pancolitis per CT, however, Clostridium difficile was negative. Continue with Flagyl and Rocephin. 2. Atrial fibrillation. 3. Dehydration. 4. Debility.
--- NOTE | 2019-11-01 13:33 | NUR ---
Infectious disease progress note Patient is improving Case reviewed he patient is doing well. His diarrhea has decreased tremendously. He has left abdominal pain. He is eager to go home soon. Diet has been advanced. PHYSICAL EXAMINATION: VITAL SIGNS: Temperature is 97.5, pulse 94, respiratory rate 20, blood pressure 132/83, pulse ox 99% on room air. GENERAL: In no acute distress, alert and oriented x3, he is cooperative on examination. HEENT: Head is normocephalic and atraumatic. Eyes; pupils are equal, round, and reactive to light bilaterally. Extraocular movements intact bilaterally. Throat; no evidence of erythema or exudates in the posterior pharynx. Has poor dentition. NECK: Supple. Good range of motion. PULMONARY: Clear to auscultation bilaterally. No wheezing, no rales, no rhonchi, no crackles appreciated. CARDIOVASCULAR: Positive S1 and S2. No murmurs, rubs, or gallops appreciated. ABDOMEN: Soft, nondistended, and nontender to palpation. Bowel sounds present. MUSCULOSKELETAL: Strength is 5/5 throughout. No evidence of any muscle deficits on examination. No weakness appreciated. NEUROLOGIC: Cranial nerves II through XII grossly intact. No evidence of any neurological deficits on exam. LABORATORY FINDINGS: Show white count 5.3, hemoglobin 9.9, hematocrit 30.7 and platelets of 171,000. Sodium 139, potassium 3.4, chloride 110, bicarb 18, anion gap of 14, BUN 6, creatinine 0.77, glucose is 82, lactic acid 1.9, calcium 7.5. C diff was negative. MICROBIOLOGY: Blood cultures, no growth. IMPRESSION: 1. Pancolitis with underlying diarrhea with associated nausea and decreased oral intake.I am concerned ischemic colitis continue antibiotics as ordered 2. Atrial fibrillation with rapid ventricular response. 3. Nausea, vomiting, and dehydration. 4. Hypercoagulable with supratherapeutic INR.
[2019-11-01] MEDS: POTASSIUM CHLORIDE 20 MEQ TAB CR PO SCH ×2 (15:56→16:35)
[2019-11-01] MEDS: CEFTRIAXONE SOD 1 GM/NS 50 ML 50 ML IV SCH (15:56)
[2019-11-01] MEDS: LOPERAMIDE HCL 2 MG CAP PO PRN ×2 (15:57→23:41)
[2019-11-01] MEDS: CHOLESTYRAMINE 4 GM PACKET PO SCH (16:35)
[2019-11-01] MEDS: ENOXAPARIN SOD INJ 40 MG/0.4 ML SYR SC SCH (16:36)
--- NOTE | 2019-11-01 17:26 | Progress Note ---
DATE: 11/01/2019 Cardiology Progress note SUBJECTIVE: The patient denies chest pain or shortness of breath. OBJECTIVE: VITAL SIGNS: Temperature is 98.1 degrees, pulse 82, respiratory rate 22, blood pressure 105/82, and oxygen saturation 97% on room air. GENERAL: Awake, alert, in no acute distress. LUNGS: Clear to auscultation bilaterally. No wheezes or crackles. CARDIAC: Normal rate, irregularly irregular rhythm. No murmur. Normal S1, S2. ABDOMEN: Soft, nontender. EXTREMITIES: No edema. CARDIAC MEDICATIONS: Metoprolol succinate 50 mg p.o. daily. LABORATORY DATA: WBC 8.68, hemoglobin 10.7, hematocrit 33.7, and platelets 214. Sodium 140, potassium 3, chloride 107, CO2 of 17, BUN less than 5, and creatinine 0.81. TELEMETRY: Telemetry was personally reviewed and interpreted revealing atrial fibrillation. IMPRESSION: 1. Atrial fibrillation. 2. Colitis. 3. Aortic regurgitation. 4. Mitral regurgitation. 5. Anemia. RECOMMENDATIONS: Echo demonstrated preserved LV systolic function with mild aortic and mitral regurgitation. Monitor the patient closely on telemetry and continue metoprolol for rate control. The patient is currently not on anticoagulation given history of hematochezia and anemia. In addition, his SUZIE-VASc score is zero. Antibiotics per Infectious Disease. Continue supportive care. Thank you for this consult. We will continue to follow. Nurys Acosta MD ABS/MODL /[id number]
--- NOTE | 2019-11-01 19:00 | NUR ---
Patient reported that he fell "about 15 min ago" he said he got tied up with machine, and tripped over it. He got himself back into bed. Denies hitting his head and there are no visible signs of any injury. He says he "is OK". Dr. Daniel notified
--- NOTE | 2019-11-01 19:45 | NUR ---
Patient leaving unit via wheelchair for radiology. In stable condition, no s/s of distress.
--- NOTE | 2019-11-01 20:06 | NUR ---
Patient returned from radiology. In stable condition, no s/s of distress. Bed locked and in lowest position, side rails upx3, alarm on, call light placed within reach. Patient instructed to call for assistance if needed, verbalized understanding. All safety measures in place.
--- NOTE | 2019-11-01 20:46 | Diagnostic Imaging Report ---
Exam: Head CT without contrast History: Trauma, fall Comparison studies: None Technique: Axial images were obtained from the skull base to the vertex. Coronal and sagittal images reconstructed from the axial data. Dose modulation, iterative reconstruction, and/or weight based adjustment of the mA/kV was utilized to reduce the radiation dose to as low as reasonably achievable. Radiation dose: Total DLP: 1022.97 mGy*cm. Estimated effective dose: DLP x 0.015 Intravenous contrast: None Findings: Scalp: No abnormalities. Bones: No fractures, blastic or lytic lesions. Brain sulci: Mildly prominent. Ventricles: Moderate compensatory dilatation. No acute hydrocephalus. Extra-axial spaces: No masses, no fluid collection. Parenchyma: Small age-indeterminate subcortical hypodense insult in the right superior parietal lobe. Multiple chronic cortical/subcortical infarcts with encephalomalacia and gliosis, the largest of these in the left parietal and occipital lobes (distal left MCA and MCA-MERCUR[employer]LL [employer]ANER cortical border zone) with smaller infarcts within the left middle and inferior frontal gyri and left frontal-subinsular white matter (left MCA territory), right inferior occipital lobe (right MER[employer]ER territory) and in the right cerebellum. A few scattered hypodensities in the supratentorial white matter are nonspecific but are most compatible with chronic microvascular ischemic changes. Small chronic lacunar infarcts are present in the right paramedian foster and head of the left caudate nucleus. Sellar/suprasellar region: No abnormalities. Craniocervical junction: No Chiari one malformation. Incidental findings: Atherosclerotic calcifications in the carotid siphons. IMPRESSION: 1. No acute posttraumatic abnormalities. 2. Small age-indeterminate nonhemorrhagic right superior parietal insult superimposed on multiple chronic cortical/subcortical infarcts within multiple vascular territories for which cardio-embolic etiology is a consideration. 3. Mild chronic microvascular ischemic changes with additional chronic lacunar infarcts as described. 4. Moderate generalized parenchymal volume loss. Signed by: Dr. Armando Fisher M.D. on 11/01/2019 8:43 PM
--- NOTE | 2019-11-01 20:57 | Diagnostic Imaging Report ---
History: Trauma, fall Comparison studies: None Technique: Axial images were obtained through the cervical region. Coronal and sagittal images reconstructed from the axial data. Dose modulation, iterative reconstruction, and/or weight based adjustment of the mA/kV was utilized to reduce the radiation dose to as low as reasonably achievable. Intravenous contrast: None Findings: Atlantoaxial articulation: Intact. Alignment: Mild reversal the usual cervical lordotic curvature at C5-C6. No subluxations. Cervicomedullary junction: No abnormalities. The foramen magnum is patent. Soft tissues: No gross acute abnormalities. Vertebrae: No fractures, infection or neoplasm. Degenerative changes: Disc degeneration, moderate at C5-C6 and mild at C4-C5 and at C6-C7. Mild canal stenosis at C5-C6 due to disc osteophyte complex. Multilevel uncovertebral facet arthrosis which contribute to severe right and moderate left foraminal stenosis at C5-C6. Incidental findings: Calcified stylohyoid ligament which can be a normal anatomical variant variant. Consider [place] syndrome only in the appropriate clinical setting. IMPRESSION: 1. No cervical spine fracture or subluxation. 2. Degenerative changes as described. 3. Ligament, spinal cord and or vascular abnormalities cannot be excluded on the basis of this examination Signed by: Dr. Armando Fisher M.D. on 11/01/2019 8:54 PM
--- NOTE | 2019-11-01 21:52 | Progress Note ---
DATE: 11/01/2019 Medicine Progress Note SUBJECTIVE: The patient still reports having some diarrhea. No overnight events. Still eating, but not as much according to the nursing staff. PHYSICAL EXAMINATION: VITAL SIGNS: Temperature is 98.5, pulse 80, respiratory rate is 18, blood pressure is 128/74, and pulse ox 100% on room air. GENERAL: Not in acute distress. Alert and oriented x3. Cooperative on examination. HEENT: Head; normocephalic, atraumatic. Eyes; pupils are equal, round, and reactive to light bilaterally. Extraocular movements intact bilaterally. Throat; no evidence of erythema or exudates in the posterior pharynx. Has poor dentition. NECK: Supple. Good range of motion. PULMONARY: Clear to auscultation bilaterally. No wheezing, no rales, no rhonchi, no crackles appreciated. CARDIOVASCULAR: Positive S1 and S2. No murmurs, rubs, or gallops appreciated. ABDOMEN: Soft, nondistended, and nontender to palpation. Bowel sounds present. MUSCULOSKELETAL: Strength is 5/5 throughout. No evidence of any muscle deficits on examination. No weakness appreciated. NEUROLOGIC: Cranial nerves 2 through 12 grossly intact. No evidence of any neurological deficits on exam. SKIN: Intact. Warm to touch. Good cap refill. PSYCHIATRIC: Normal affect and mood. EXTREMITIES: No edema. Good range of motion throughout. LABORATORY FINDINGS: Show white count 6.6, hemoglobin 10.7, hematocrit is 34, and platelets of 214. Chemistry; sodium 140, potassium is 3, chloride 105, bicarb 17, anion gap of 19, BUN is 5, creatinine is 0.81, and calcium is 8.2. LFTs within normal range. Total protein 5.9. P-ANCA pending. Coronavirus not detected. Toxin not detected. Blood cultures, no growth. Stool ova and parasites are pending. IMAGING STUDIES: Nothing new. IMPRESSION: 1. Pancolitis with underlying diarrhea associated with nausea and decreased oral intake. 2. Atrial fibrillation with rapid ventricular response. 3. Nausea, vomiting, and dehydration. 4. Hypercoagulable with supratherapeutic INR. PLAN: At this time, the patient continues to have diarrhea. We will add cholestyramine as well as loperamide. Not sure if he will need a colonoscopy at some point, but if the diarrhea continues, he may need one. Continue with IV antibiotics for now. He is on antinausea medication and IV fluids. Still continue with full liquid diet. Apparently, he is not tolerating regular diet now. He is on Lovenox for DVT prophylaxis. Anticoagulation per Cardiology. She did put a CHADS-VASc score of zero. The patient is currently not on anticoagulation given the history of hematochezia and anemia according to Cardiology's note. At this time, we will continue with same plan of care and monitor closely. A.m. labs. MD LANA Solorio/MODL /[id number]
--- NOTE | 2019-11-01 22:42 | Diagnostic Imaging Report ---
HIPS BILAT TWO VWS(+/- PELVIS) - 3 views HISTORY: Pain. COMPARISON: None available. FINDINGS: Bones: No acute displaced fracture. Osseous alignment is within normal limits. 7 mm rounded lucent lesion with well-defined margins, but no sclerotic border is identified in the proximal right femur. An additional adjacent 4 mm lucent lesion with similar characteristics. Joints: The joint spaces are well-maintained. Soft tissues: The soft tissues appear unremarkable. IMPRESSION: 1. No acute fracture or dislocation of the bilateral hips. 2. Two adjacent rounded lucent lesions measuring up to 7 mm in the proximal right femur are nonspecific. If available, correlation with outside imaging is recommended to establish stability. Otherwise, consider dedicated radiographs of the right femur in 3 months to reassess. Signed by: Gabriel Robb MD on 11/01/2019 10:39 PM
[2019-11-02] VITALS (8 sets, daily range): BP systolic 103–148; BP diastolic 68–90
--- NOTE | 2019-11-02 02:01 | NUR ---
Dr. Wisam Dixon here to see patient. Received orders to meticulously document number of bowel movements over 24 hour period. Per MD, stop Rocephin later today if okay with Dr. Maldonado. Dr. Dixon made aware that family would like to speak to him.
--- NOTE | 2019-11-02 02:32 | NUR ---
Received orders from Dr. Dixon for Zofran 8 mg IV every 8 hours scheduled for 2 days.
[2019-11-02] MEDS: SODIUM CHLORIDE 0.9% 1000ML 1,000 ML IV SCH ×3 (04:54→18:54)
[2019-11-02 05:16] LABS: BASOPHILS % 0.1 % (0.0-1.0); EOSINOPHILS % 0.3 % (0.0-6.0); HEMATOCRIT 32.9 % (38.2-49.6); HEMOGLOBIN 10.8 g/dL (14.0-18.0); LYMPHOCYTES % 13.9 % (18.0-39.1); MEAN CORPUSCULAR HEMOGLOBIN 29.3 pg (28-32); MEAN CORPUSCULAR HGB CONC 32.8 g/dL (31-35); MEAN CORPUSCULAR VOLUME 89.2 fL (81-99); MONOCYTES # (AUTO) 0.4 (0.2-0.8); MONOCYTES % 5.4 % (4.4-11.3); NEUTROPHILS # (AUTO) 5.6 (2.1-6.9); NEUTROPHILS % 75.4 % (38.7-80.0); PLATELET COUNT 211 x10e3/uL (140-360); RED BLOOD COUNT 3.69 x10e6/uL (4.3-5.7); RED CELL DISTRIBUTION WIDTH 14.6 % (11.7-14.4)
[2019-11-02] MEDS: METRONIDAZOLE 500MG/NS 100ML 100 ML IV SCH ×3 (05:25→18:55)
[2019-11-02] MEDS: METOCLOPRAMIDE HCL 10 MG/2ML VIAL IV SCH ×3 (05:25→18:55)
[2019-11-02 05:26] LABS: INR 1.5
[2019-11-02 05:34] LABS: ALANINE AMINOTRANSFERASE 8 IU/L (0-55); ALBUMIN 2.8 g/dL (3.5-5.0); ALBUMIN/GLOBULIN RATIO 1.3 (0.8-2.0); ALKALINE PHOSPHATASE 41 IU/L (40-150); ANION GAP 17.1 mmol/L (8-16); BLOOD UREA NITROGEN < 5 mg/dL (7-26); CALCIUM 7.4 mg/dL (8.4-10.2); CARBON DIOXIDE 17 mmol/L (22-29); CHLORIDE 109 mmol/L (98-107); CREATININE, SERUM 0.76 mg/dL (0.72-1.25); EST GLOMERULAR FILTRATION RATE > 60 ML/MIN (60-); GLUCOSE 98 mg/dL (74-118); POTASSIUM 3.1 mmol/L (3.5-5.1); SODIUM 140 mmol/L (136-145)
[2019-11-02 05:39] LABS: BUN/CREATININE RATIO 7 (6-25)
[2019-11-02] MEDS: ONDANSETRON HCL INJ 2MG/ML 2ML 2 MG/ML VIAL IV SCH ×3 (06:20→21:06)
--- NOTE | 2019-11-02 07:03 | NUR ---
BEDSIDE SHIFT REPORT RECEIVED FROM NIGHT RN. PT RESTING, RESPIRATIONS EVEN AND NONLABORED. NO S/S DISTRESS. IN STABLE CONDITION.
[2019-11-02 07:04] LABS: BAND NEUTROPHILS % (MANUAL) 4 %; LYMPHOCYTES % (MANUAL) 17 % (19-48); METAMYELOCYTES % (MANUAL) 3 % (0-0); MONOCYTES % (MANUAL) 3 % (3.4-9.0); NEUTROPHILS % (MANUAL) 70 % (40-74); PROMYELOCYTES % (MANUAL) 2 % (0-0)
[2019-11-02 07:07] LABS: PLATELET ESTIMATE ADEQUATE; PLATELET MORPHOLOGY COMMENT FEW LARGE; RBC MORPHOLOGY COMMENT NORMAL
--- NOTE | 2019-11-02 08:13 | NUR ---
PAGED DR. DALLAS FOR ORDERS REGARDING LOW POTASSIUM. NEW ORDERS RECEIVED.
[2019-11-02] MEDS: CHOLESTYRAMINE 4 GM PACKET PO SCH ×2 (09:00→19:03)
--- NOTE | 2019-11-02 10:18 | NUR ---
GAVE PACKET OF INFORMATION WITH [facility] [employer] FOR ASSISTANCE WITH LOW TO NO INCOME TO PATIENT. RESOURCES THAT PATIENT MAY BE ABLE TO FOLLOW UP UPON DISCHARGE. PT EDUCATED ON EACH RESOURCE AND UNDERSTANDING HOW TO FOLLOW UP TO SEE IF QUALIFIED FOR EACH RESOURCE.
[2019-11-02] MEDS: SUCRALFATE 1 GM/10 ML SUSP NG SCH ×4 (10:46→21:06)
[2019-11-02] MEDS: DICYCLOMINE HCL 20 MG TAB PO SCH ×4 (10:48→21:06)
[2019-11-02] MEDS: PANTOPRAZOLE 40 MG 10ML VIAL IV SCH ×2 (10:48→18:57)
[2019-11-02] MEDS: POTASSIUM CHLORIDE 20 MEQ TAB CR PO SCH ×2 (10:48→19:03)
[2019-11-02] MEDS: METOPROLOL SUCCINATE 50 MG TAB XL PO SCH (10:49)
[2019-11-02] MEDS: ONDANSETRON HCL INJ 2MG/ML 2ML 2 MG/ML VIAL IV PRN (11:09)
--- NOTE | 2019-11-02 11:33 | NUR ---
PT SHOWING AFIB WITH RVR ON TELEMETRY. PT SITTING UP IN BED, NO S/S DISTRESS. PAGING BINGO CLERK DR. PRADIP SMITH.
[2019-11-02] MEDS ORDERED: HYDROMORPHONE 1MG/1ML INJ ONE (12:22)
--- NOTE | 2019-11-02 12:45 | Progress Note ---
DATE: 11/02/2019 Cardiology Progress Note SUBJECTIVE: The patient denies chest pain or shortness of breath. OBJECTIVE: VITAL SIGNS: Temperature 97.8 degrees, pulse 70, respiratory rate 18, blood pressure 103/73, and oxygen saturation 100%. GENERAL: Awake and alert, in no acute distress. LUNGS: Clear to auscultation bilaterally. No wheezes or crackles. CARDIOVASCULAR: Normal rate. Irregularly irregular. No murmur. Normal S1 and S2. ABDOMEN: Soft and nontender. EXTREMITIES: No edema. CARDIAC MEDICATIONS: Metoprolol succinate 50 mg p.o. daily. LABORATORY DATA: WBC 7.41, hemoglobin 10.8, hematocrit 32.9, and platelets 211. Sodium 140, potassium 3.1, chloride 109, CO2 17, BUN less than 5, and creatinine 0.76. Telemetry was personally reviewed and interpreted, revealing atrial fibrillation. IMPRESSION: 1. Atrial fibrillation. 2. Colitis. 3. Aortic regurgitation. 4. Mitral regurgitation. 5. Anemia. RECOMMENDATIONS: Echocardiogram demonstrated preserved LV systolic function, mild aortic and mitral regurgitation. Monitor the patient closely on telemetry while admitted. Continue metoprolol for rate control. The patient is not on anticoagulation given history of anemia and hematochezia. In addition, CHADS VASc score is zero. Antibiotics per Infectious Disease. Continue supportive care. Thank you for this consult. We will continue to follow. Nurys Acosta MD ABS/MODL /[id number]
--- NOTE | 2019-11-02 13:32 | NUR ---
infectious disease progress note Patient seen and examined chart reviewed Patient with no new complaintshe patient denies chest pain or shortness of breath. OBJECTIVE: VITAL SIGNS: Temperature 97.8 degrees, pulse 70, respiratory rate 18, blood pressure 103/73, and oxygen saturation 100%. GENERAL: Awake and alert, in no acute distress. LUNGS: Clear to auscultation bilaterally. No wheezes or crackles. CARDIOVASCULAR: Normal rate. Irregularly irregular. No murmur. Normal S1 and S2. ABDOMEN: Soft and nontender. EXTREMITIES: No edema. CARDIAC MEDICATIONS: Metoprolol succinate 50 mg p.o. daily.please see orders LABORATORY DATA: WBC 7.41, hemoglobin 10.8, hematocrit 32.9, and platelets 211. Sodium 140, potassium 3.1, chloride 109, CO2 17, BUN less than 5, and creatinine 0.76. Telemetry was personally reviewed and interpreted, revealing atrial fibrillation. IMPRESSION: 1. Atrial fibrillation. 2. Coliti r/o of ischemic colitis 3. Aortic regurgitation. 4. Mitral regurgitation. we will continue Flagyl discontinue Rocephin
[2019-11-02] MEDS: ENOXAPARIN SOD INJ 40 MG/0.4 ML SYR SC SCH (18:55)
--- NOTE | 2019-11-02 19:00 | NUR ---
Resumed care of patient. Patient awake and resting in bed, no s/s of distress at this time. Bed locked and in lowest position, side rails upx3, alarm on, call light placed within reach. All safety measures in place.
[2019-11-02] MEDS ORDERED: POTASSIUM CHLORIDE 20 MEQ TAB CR PO SCH (19:10)
--- NOTE | 2019-11-02 21:57 | NUR ---
Dr. Wisam Dixon here to see patient. Plan for colonoscopy on Thursday. Orders to DC Flagyl and place patient on clear liquid diet starting tomorrow. Give 1 bottle of Golytely tomorrow at around 2PM.
--- NOTE | 2019-11-02 22:00 | NUR ---
Daughter and called to see how patient is doing. Provided updates on patient's status and plan of care, including plan for colonoscopy on Thursday. Addressed family's concerns and questions. Encouraged family to call at any time and follow up as needed.
[2019-11-03] VITALS (7 sets, daily range): BP systolic 113–132; BP diastolic 68–94
[2019-11-03] MEDS: SODIUM CHLORIDE 0.9% 1000ML 1,000 ML IV SCH ×3 (00:30→15:04)
[2019-11-03] MEDS: METOCLOPRAMIDE HCL 10 MG/2ML VIAL IV SCH ×4 (00:37→18:46)
--- NOTE | 2019-11-03 01:52 | NUR ---
Assisted patient to restroom, unsteady gait noted. Walker provided. Patient instructed to call for assistance if needed, verbalized understanding. Bed locked and in lowest position, side rails upx3, alarm on, call light and belongings placed within reach. Yellow non-skid socks applied. Walker at bedside. All safety measures in place.
[2019-11-03 05:07] LABS: BASOPHILS # (AUTO) 0.1 (0.0-0.1); EOSINOPHILS % 0.2 % (0.0-6.0); HEMATOCRIT 31.2 % (38.2-49.6); HEMOGLOBIN 10.4 g/dL (14.0-18.0); LYMPHOCYTES # (AUTO) 0.7 (1.0-3.2); LYMPHOCYTES % 11.3 % (18.0-39.1); MEAN CORPUSCULAR HEMOGLOBIN 29.6 pg (28-32); MEAN CORPUSCULAR HGB CONC 33.3 g/dL (31-35); MEAN CORPUSCULAR VOLUME 88.9 fL (81-99); MONOCYTES # (AUTO) 0.4 (0.2-0.8); NEUTROPHILS # (AUTO) 4.7 (2.1-6.9); NEUTROPHILS % 75.3 % (38.7-80.0); PLATELET COUNT 193 x10e3/uL (140-360); RED BLOOD COUNT 3.51 x10e6/uL (4.3-5.7); RED CELL DISTRIBUTION WIDTH 14.6 % (11.7-14.4)
[2019-11-03] MEDS: ONDANSETRON HCL INJ 2MG/ML 2ML 2 MG/ML VIAL IV SCH ×3 (05:27→21:43)
[2019-11-03 05:31] LABS: ANION GAP 16.1 mmol/L (8-16); BLOOD UREA NITROGEN < 5 mg/dL (7-26); CALCIUM 7.1 mg/dL (8.4-10.2); CARBON DIOXIDE 17 mmol/L (22-29); CHLORIDE 110 mmol/L (98-107); CREATININE, SERUM 0.74 mg/dL (0.72-1.25); EST GLOMERULAR FILTRATION RATE > 60 ML/MIN (60-); GLUCOSE 108 mg/dL (74-118); POTASSIUM 3.1 mmol/L (3.5-5.1); SODIUM 140 mmol/L (136-145)
--- NOTE | 2019-11-03 05:35 | NUR ---
Patient continuing to have diarrhea and accidents due to being unable to make it to toilet on time. Patient refusing briefs at this time, prefers to wear his own clothing from home. Bedside commode provided. Patient instructed to call for assistance when needed, verbalized understanding. All safety measures in place.
[2019-11-03 05:54] LABS: BUN/CREATININE RATIO 7 (6-25)
--- NOTE | 2019-11-03 07:04 | NUR ---
BEDSIDE SHIFT REPORT RECEIVED FROM PM NURSE. PT IN STABLE CONDITION. BEDSIDE COMMODE NEXT TO PT'S BED. ALL SAFETY MEASURES IN PLACE. WILL CONTINUE TO MONITOR.
--- NOTE | 2019-11-03 08:40 | NUR ---
SPOKE WITH DR. Wisam VILLAGOMEZ REGARDING POTASSIUM LEVEL. NEW ORDERS RECEIVED.
[2019-11-03] MEDS ORDERED: POTASSIUM CHLORIDE 20 MEQ TAB CR PO SCH (09:15)
[2019-11-03] MEDS: DICYCLOMINE HCL 20 MG TAB PO SCH ×4 (10:34→21:43)
[2019-11-03] MEDS: METOPROLOL SUCCINATE 50 MG TAB XL PO SCH (10:34)
[2019-11-03] MEDS: PANTOPRAZOLE 40 MG 10ML VIAL IV SCH ×2 (10:34→18:42)
[2019-11-03] MEDS: SUCRALFATE 1 GM/10 ML SUSP NG SCH ×4 (10:35→21:43)
[2019-11-03] MEDS ORDERED: POTASSIUM CHLORIDE 20 MEQ TAB CR PO ONE (10:45)
--- NOTE | 2019-11-03 11:01 | NUR ---
PT RUNNING AFIB WITH RATES RANGING FROM 130'S TO 160'S. ANIMAL SCIENTIST, DR. LUNA NOTIFIED WHO WENT DOWN TO TELEMETRY TO OBSERVE PT ON MONITOR. NO NEW ORDERS RECEIVED.
--- NOTE | 2019-11-03 11:34 | NUR ---
ACKNOWLEDGED NEW ORDERS FROM CARDIOLOGY.
--- NOTE | 2019-11-03 12:10 | Progress Note ---
DATE: 11/03/2019 Cardiology Progress Note SUBJECTIVE: The patient denies chest pain or shortness of breath. OBJECTIVE: VITAL SIGNS: Temperature 97.8 degrees, pulse 102, respiratory rate 20, blood pressure 139/67, and oxygen saturation 100% on room air. GENERAL: Awake, alert, in no acute distress. LUNGS: Clear to auscultation bilaterally. No wheezes or crackles. CARDIOVASCULAR: Normal rate. Irregularly irregular. No murmur. Normal S1 and S2. ABDOMEN: Soft and nontender. EXTREMITIES: No edema. CARDIAC MEDICATIONS: Metoprolol succinate 50 mg p.o. daily. LABORATORY DATA: WBC 6.29, hemoglobin 10.4, hematocrit 31.2, and platelets 193. Sodium 140, potassium 3.1, chloride 110, CO2 17, BUN less than 5, and creatinine 0.74. Telemetry was personally reviewed and interpreted, revealing atrial fibrillation with episodes of rapid ventricular response. IMPRESSION: 1. Atrial fibrillation. 2. Colitis. 3. Aortic regurgitation. 4. Mitral regurgitation. 5. Anemia. RECOMMENDATIONS: Echocardiogram demonstrated preserved LV systolic function, mild aortic and mitral regurgitation. Monitor the patient closely on telemetry. Rate is not well controlled during activity. We will increase metoprolol. The patient is not on anticoagulation given history of anemia and hematochezia. In addition, CHADS-VASc score is zero. Antibiotics per Infectious Disease. Continue supportive care. Thank you for this consult. We will continue to follow. Nurys Acosta MD ABS/MODL /[id number]
[2019-11-03] MEDS: CHOLESTYRAMINE 4 GM PACKET PO SCH ×2 (12:59→17:00)
--- NOTE | 2019-11-03 13:00 | Progress Note ---
DATE: 11/02/2019 MEDICINE PROGRESS NOTE: SUBJECTIVE: The patient reports still having diarrhea, though it is improving today. PHYSICAL EXAMINATION: VITAL SIGNS: Afebrile. Normotensive. Respiratory rate 12. His heart rate is elevated at 109. He is on room air. GENERAL: Not in acute distress. Alert and oriented x3. He is cooperative on examination. HEENT: Head; normocephalic and atraumatic. Eyes; pupils are equal, round, and reactive to light bilaterally. Throat; no evidence of erythema or exudates in the posterior pharynx. Has poor dentition. NECK: Supple. Good range of motion. PULMONARY: Clear to auscultation bilaterally. No wheezing, no rales, no rhonchi, no crackles appreciated. CARDIOVASCULAR: Positive S1 and S2. No murmurs, rubs, or gallops appreciated. ABDOMEN: Soft, nondistended, nontender to palpation. Bowel sounds present. MUSCULOSKELETAL: Strength is 5/5 throughout. No evidence of any muscle deficits on examination. No weakness appreciated. NEUROLOGICAL: Cranial nerves II through XII were grossly intact. No evidence of any neurological deficits on exam. SKIN: Intact. Warm to touch. Good cap refill. PSYCHIATRIC: Normal affect and mood. EXTREMITIES: No edema. Good range of motion throughout. LABORATORY DATA: Labs show white count 7.4, hemoglobin 10.8, hematocrit 30.9, platelets of 211. Chemistry reviewed sodium is 140, potassium 3.1, chloride 109, bicarb 17, anion gap 13, BUN is 5 and creatinine 0.76. C. diff, negative. Coronavirus, negative. Blood cultures, no growth. Stool ova and parasite. No Salmonella, Shigella, or Campylobacter noted. E. coli Shiga toxin negative. CT brain, no acute posttraumatic abnormality. in the right superior parietal insult superimposed is considered. Mild chronic microvascular ischemic changes with additional chronic lacunar infarcts . CT cervical spine found be negative. Hip x-ray, no acute fracture or dislocation in the bilateral hips. There is some proximal in the right femur is nonspecific. They recommend repeat radiographs in three months to reassess. IMPRESSION: 1. Pancolitis with underlying diarrhea associated with nausea, decreased oral intake. 2. Atrial fibrillation with rapid ventricular response. 3. Nausea, vomiting, and dehydration. 4. Hypercoagulable with supratherapeutic INR. 5. Abnormal CT brain. PLAN: At this time, diuresis to be included, add cholestyramine and loperamide. I am not sure if he would need a colonoscopy at some point GI. His rate is well controlled. Anticoagulation is , CHADS-VASc score, but CT brain was found to be abnormal. We will get MRI of the brain, may need to be on anticoagulation after MRI of the brain has been confirmed. Cardiology is following. He may not be a true candidate for any anticoagulation due to hematochezia . Continue same plan of care and monitor very closely. Get a.m. labs. MRI of the brain DICTATION ENDS HERE. MD LANA Solorio/[place] /[id number]
[2019-11-03] MEDS ORDERED: PEG (High)/E-LYTE SOLN 4,000 ML BTL PO ONE (14:00)
--- NOTE | 2019-11-03 16:34 | NUR ---
INFECTIOUS DISEASE PROGRESS NOTE Patient seen and examined chart reviewed Patient with no new complaint denies chest pain or shortness of breath OBJECTIVE: VITAL SIGNS: STABLE GENERAL: Awake and alert, in no acute distress. LUNGS: Clear to auscultation bilaterally. No wheezes or crackles. CARDIOVASCULAR: Normal rate. Irregularly irregular. No murmur. Normal S1 and S2. ABDOMEN: Soft and nontender. EXTREMITIES: No edema. CARDIAC MEDICATIONS: Metoprolol succinate 50 mg p.o. daily.please see orders LABORATORY DATA: reviewed Telemetry was personally reviewed and interpreted, revealing atrial fibrillation. IMPRESSION: 1. Atrial fibrillation. 2. Colitis r/o of ischemic colitis 3. Aortic regurgitation. 4. Mitral regurgitation. we will continue Flagyl for 2 weeks po
[2019-11-03] MEDS: METRONIDAZOLE 500 MG TAB PO SCH ×2 (18:42→21:43)
[2019-11-03] MEDS: METOPROLOL TARTRATE 50 MG TAB PO SCH (18:44)
[2019-11-03] MEDS: ENOXAPARIN SOD INJ 40 MG/0.4 ML SYR SC SCH (18:45)
[2019-11-04] VITALS (8 sets, daily range): BP systolic 127–144; BP diastolic 69–93
[2019-11-04] MEDS ORDERED: FUROSEMIDE INJ 10 MG/ML 2 ML VIAL IV ONE (01:00)
[2019-11-04] MEDS ORDERED: BISACODYL 5 MG TAB EC PO ONE ×2 (01:00→01:45)
--- NOTE | 2019-11-04 01:02 | Progress Note ---
DATE: 11/03/2019 Medicine Progress Note SUBJECTIVE: The patient currently getting GoLYTELY, scheduled for colonoscopy tomorrow. PHYSICAL EXAMINATION: VITAL SIGNS: Temperature 97.9, pulse 98, respiratory rate is 21, blood pressure 119/85, and pulse ox 99% on room air. GENERAL: Not in acute distress. Alert and oriented x3. Cooperative on examination. HEENT: Head; normocephalic, atraumatic. Eyes; pupils are equal, round, and reactive to light bilaterally. Extraocular movements intact bilaterally. Throat; no evidence of erythema or exudates in the posterior pharynx. Has poor dentition. NECK: Supple. Good range of motion. PULMONARY: Clear to auscultation bilaterally. No wheezing, no rales, no rhonchi, no crackles appreciated. CARDIOVASCULAR: Positive S1 and S2. No murmurs, rubs, or gallops appreciated. ABDOMEN: Soft, nondistended, and nontender to palpation. Bowel sounds present. MUSCULOSKELETAL: Strength is 5/5 throughout. No evidence of any muscle deficits on examination. SKIN: Intact. Warm to touch. Good cap refill. LABORATORY DATA: Show white count 6.2, hemoglobin 10.4, hematocrit is 31, platelets of 193. Chemistries reviewed, shows sodium 140, potassium 3.1 repeat 3.9, chloride 110, bicarb 17, anion gap of 16, creatinine is 0.74. Blood cultures, no growth. Ova and parasite stool culture pending. IMAGING STUDIES: Nothing new. IMPRESSION: 1. Pancolitis with underlying diarrhea associated with nausea, vomiting, and decreased oral intake. 2. Atrial fibrillation with rapid ventricular response. 3. Nausea, vomiting, and dehydration. 4. Hypercoagulable with a supratherapeutic INR. PLAN: At this time, he is currently getting GoLYTELY, scheduled to get a colonoscopy likely tomorrow. Continue with IV fluids, clear liquid diet for now, n.p.o. after midnight. As per Cardiology, no further workup is needed. We will continue to monitor very closely. MD LANA Solorio/MODL /[id number]
[2019-11-04] MEDS ORDERED: BISACODYL 5 MG TAB EC PO STA ×2 (03:42→04:18)
[2019-11-04] MEDS: METOCLOPRAMIDE HCL 10 MG/2ML VIAL IV SCH ×4 (05:14→17:01)
[2019-11-04 05:24] LABS: BASOPHILS % 0.1 % (0.0-1.0); HEMOGLOBIN 12.5 g/dL (14.0-18.0); LYMPHOCYTES # (AUTO) 1.5 (1.0-3.2); LYMPHOCYTES % 16.2 % (18.0-39.1); MEAN CORPUSCULAR HEMOGLOBIN 30.6 pg (28-32); MEAN CORPUSCULAR HGB CONC 32.9 g/dL (31-35); MEAN CORPUSCULAR VOLUME 92.9 fL (81-99); MONOCYTES # (AUTO) 0.4 (0.2-0.8); MONOCYTES % 4.5 % (4.4-11.3); NEUTROPHILS # (AUTO) 6.8 (2.1-6.9); NEUTROPHILS % 75.1 % (38.7-80.0); PLATELET COUNT 251 x10e3/uL (140-360); RED BLOOD COUNT 4.09 x10e6/uL (4.3-5.7); RED CELL DISTRIBUTION WIDTH 15.3 % (11.7-14.4)
[2019-11-04 05:45] LABS: ANION GAP 20.8 mmol/L (8-16); BLOOD UREA NITROGEN 8 mg/dL (7-26); BUN/CREATININE RATIO 7 (6-25); CALCIUM 7.8 mg/dL (8.4-10.2); CARBON DIOXIDE 14 mmol/L (22-29); CHLORIDE 111 mmol/L (98-107); CREATININE, SERUM 1.14 mg/dL (0.72-1.25); EST GLOMERULAR FILTRATION RATE > 60 ML/MIN (60-); GLUCOSE 133 mg/dL (74-118); POTASSIUM 3.8 mmol/L (3.5-5.1); SODIUM 142 mmol/L (136-145)
[2019-11-04] MEDS: METRONIDAZOLE 500 MG TAB PO SCH ×3 (06:00→22:36)
[2019-11-04 06:41] LABS: ANISOCYTOSIS SLIGHT; BAND NEUTROPHILS % (MANUAL) 1 %; LYMPHOCYTES % (MANUAL) 20 % (19-48); MONOCYTES % (MANUAL) 5 % (3.4-9.0); MYELOCYTES % (MANUAL) 2 % (0-0); NEUTROPHILS % (MANUAL) 72 % (40-74); POIKILOCYTOSIS SLIGHT
[2019-11-04 06:42] LABS: OVALOCYTES NO; PLATELET ESTIMATE ADEQUATE; PLATELET MORPHOLOGY COMMENT FEW LARGE; RBC MORPHOLOGY COMMENT NORMAL
[2019-11-04] MEDS: SUCRALFATE 1 GM/10 ML SUSP NG SCH ×4 (07:30→21:07)
--- NOTE | 2019-11-04 07:30 | NUR ---
PATIENT IS ALERT AND IN STABLE CONDITION WITH NO S/S OF RESPIRATORY DISTRESS. NO PAIN VOICED. TELEMETRY APPLIED. PATIENT IS NPO FOR COLONOSCOPY TODAY. BEDSIDE COMMODE AVAILABLE FOR PATIENT NEAR BEDSIDE. BED ALARM APPLIED. CALL LIGHT IS WITHIN REACH, PATIENT INSTRUCTED TO CALL FOR ASSISTANCE NEEDED.
[2019-11-04] MEDS: PANTOPRAZOLE 40 MG 10ML VIAL IV SCH ×2 (08:50→16:14)
[2019-11-04] MEDS: DICYCLOMINE HCL 20 MG TAB PO SCH ×4 (08:56→21:07)
[2019-11-04] MEDS: METOPROLOL TARTRATE 50 MG TAB PO SCH ×3 (08:56→16:15)
[2019-11-04] MEDS: CHOLESTYRAMINE 4 GM PACKET PO SCH ×2 (08:57→16:15)
--- NOTE | 2019-11-04 09:52 | NUR ---
CALLED OR TO SPEAK WITH DR. VILLAGOMEZ - DR. VILLAGOMEZ IS IN A CASE BUT MESSAGE LEFT FOR HIM TO CONTACT RN REGARDING THIS PATIENT AND BOWEL PREP FOR COLONOSCOPY TODAY. AWAITING CALLBACK.
--- NOTE | 2019-11-04 11:24 | Progress Note ---
DATE: 11/04/2019 Cardiology Progress Note SUBJECTIVE: The patient denies chest pain or shortness of breath. He does report pain in the side. OBJECTIVE: VITAL SIGNS: Temperature 97.5 degrees, pulse 105, respiratory rate 24, blood pressure 144/77, and oxygen saturation 100% on room air. GENERAL: Awake, alert, in no acute distress. LUNGS: Clear to auscultation bilaterally. No wheeze or crackles. CARDIOVASCULAR: Normal rate. Irregularly irregular. No murmur. Normal S1 and S2. ABDOMEN: Soft and nontender. EXTREMITIES: No edema. CARDIAC MEDICATIONS: Metoprolol 50 mg p.o. b.i.d. LABORATORY DATA: WBC 9.06, hemoglobin 12.5, hematocrit 38, and platelets 251. Sodium 142, potassium 3.8, chloride 111, CO2 14, BUN 8, and creatinine 1.14. Telemetry was personally reviewed and interpreted, revealing atrial fibrillation with episodes of rapid ventricular response. IMPRESSION: 1. Atrial fibrillation. 2. Colitis. 3. Aortic regurgitation. 4. Mitral regurgitation. 5. Anemia. RECOMMENDATIONS: Echocardiogram demonstrated preserved LV systolic function, mild aortic and mitral regurgitation. Monitor the patient closely on telemetry. May need further titration of metoprolol. The patient is not on anticoagulation given history of anemia and hematochezia. In addition, CHADS-VASc score is zero. Antibiotics per Infectious Disease. Continue supportive care. Thank you for this consult. We will continue to follow. Nurys Acosta MD [facility]/MODL /[id number]
[2019-11-04] MEDS ORDERED: CITRATE OF MAGNESIA 300ML BOTTLE PO ONE (11:45)
--- NOTE | 2019-11-04 12:43 | NUR ---
PER ENDO STAFF MEMBER- PATIENT WENT FROM MRI TO ENDO FOR COLONOSCOPY.
--- NOTE | 2019-11-04 12:54 | Diagnostic Imaging Report ---
Examination: MRI BRAIN WO CONTRAST History: Fall. Trauma Comparison studies: Head CT performed November 01, 2019 Technique: Sagittal T2; axial DWI, FLAIR, GRE or SWI, T1, Coronal FLAIR. Intravenous contrast: None Findings: Scalp: No abnormal signal. No masses. Bone marrow: Normal in signal intensity. Brain volume: Generalized volume loss. Ventricles: Ex vacuo dilatation. No hydrocephalus. Extra-axial spaces: No abnormalities. Parenchyma: Chronic cortical based infarcts of the right superior parietal lobule, left middle and inferior frontal gyri, medial lingual gyrus of the right occipital lobe, left parieto-occipital region (distal left MCA and MCA [employer] external border zone) and right mid cerebellum. There is associated gyriform hemosiderin deposition in the left parieto-occipital infarct. Smaller chronic lacunar infarcts are seen in the left striatocapsular region and anterior limb of the left internal capsule as well as the left putamen. No masses, hemorrhage, or acute vascular insults. Suprasellar and sellar region: No abnormalities. Craniocervical junction: No abnormalities. The foramen magnum is patent. No Chiari malformations. Vessels: Normal flow-voids in the arteries and sinuses. Additional findings:None. IMPRESSION: No acute intracranial abnormalities. Chronic infarcts as detailed above. Generalized volume loss. Mild chronic microvascular ischemic change Signed by: Dr. Vicky Duarte M.D. on 11/04/2019 12:50 PM
[2019-11-04] MEDS ORDERED: PROPOFOL IV EMULSION 10 MG/ML 20 ML VIAL ONE (14:37)
[2019-11-04 14:49] LABS: WBC,FECAL (FECAL LACTOFERRIN) POSITIVE (NEGATIVE)
[2019-11-04] MEDS: MESALAMINE 400 MG CAP PO SCH ×2 (14:56→21:07)
[2019-11-04] MEDS ORDERED: MIDAZOLAM HCL 2 MG/2 ML VIAL ONE (15:12)
[2019-11-04] MEDS ORDERED: FENTANYL CITRATE/PF 100MCG/2 ML INJ ONE (15:12)
[2019-11-04 15:26] LABS: C DIFFICILE TOXIN A&B AMP PROB NEGATIVE (NEGATIVE)
--- NOTE | 2019-11-04 15:32 | NUR ---
Nutrition Screen Note RD Recommendation for Physician: -Continue GI soft diet -If PO intake is <50% of meals, offer Ensure Enlive Plan of Care: RD following, monitoring for tolerance and adequacy Nutrition reason for involvement: length of stay Primary Diagnose(s): pseudomembranous colitis, severe sepsis, atrial fibrillation RVR PMH: none, pt is a poor historian per H/P Ht: 65 in Wt: 151.31 lb BMI: 25.2 kg/m2 IBW: [address] Assessment: (11/04/19) Chart reviewed. Labs and meds reviewed. Pt is a 64 year old male admitted with pseudomembranous colitis, severe sepsis, and atrial fibrillation RVR. Pt had a colonoscopy today. Pt is primarily Maltese speaking per chart. There are no reports of recent unintentional weight loss or decreased appetite prior to admission as indicated in chart. Pt is now on a GI soft diet and was previously on liquid diets with 50-100% intake. Will continue to monitor. Current Diet: GI soft Malnutrition Evaluation (11/04/19) The patient does not meet criteria for a specified degree of malnutrition at this time. Will re-evaluate at follow-up as appropriate. Diet Education Needs Assessment: RD is available for diet education as needed Nutrition Care Level: low Signed: Johanne Hinds, SONAM, LD
[2019-11-04] MEDS: ENOXAPARIN SOD INJ 40 MG/0.4 ML SYR SC SCH (16:15)
--- NOTE | 2019-11-04 17:00 | NUR ---
NFECTIOUS DISEASE PROGRESS NOTE Patient seen and examined chart reviewed Patient with no new complaint denies chest pain or shortness of breath OBJECTIVE: VITAL SIGNS: STABLE GENERAL: Awake and alert, in no acute distress. LUNGS: Clear to auscultation bilaterally. No wheezes or crackles. CARDIOVASCULAR: Normal rate. Irregularly irregular. No murmur. Normal S1 and S2. ABDOMEN: Soft and non tender. EXTREMITIES: No edema. CARDIAC MEDICATIONS: Metoprolol succinate 50 mg p.o. daily.please see orders LABORATORY DATA: reviewed Telemetry was personally reviewed and interpreted, revealing atrial fibrillation. IMPRESSION: 1. Atrial fibrillation. 2. Colitis r/o of ischemic colitis 3. Aortic regurgitation. continue as ordered discussed with medical team
--- NOTE | 2019-11-04 19:28 | NUR ---
PATIENT IS IN STABLE CONDITION WITH NO S/S OF RESPIRATORY DISTRESS. NO PAIN VOICED. TELEMETRY APPLIED. BEDSIDE COMMODE AVAILABLE FOR PATIENT NEAR BEDSIDE. PATIENT CURRENTLY HAVING BM ON BEDSIDE COMMODE- NIGHT NURSE AWARE AND TO PLACE BED ALARM AFTER BM. CALL LIGHT IS WITHIN REACH, PATIENT INSTRUCTED TO CALL FOR ASSISTANCE NEEDED. REPORT GIVEN TO ONCOMING NURSE.
--- NOTE | 2019-11-04 19:56 | Operative Report ---
DATE OF PROCEDURE: 11/04/2019 SURGEON: Vishal Dixon MD PROCEDURE: Colonoscopy with biopsies INDICATIONS FOR COLONOSCOPY: Persistent diarrhea, abnormal CT scan of abdomen. MEDICATIONS: The patient was done under MAC. Please see anesthesiologist's note. PROCEDURE IN DETAIL: With the patient in left lateral decubitus position, a flexible fiberoptic Olympus colonoscope was inserted into the rectum with ease and advanced all the way to the cecum. The colon was diffusely ulcerated. The ileocecal valve was intubated and scope was advanced into the terminal ileum. Mucosa appeared to be within normal limits. Biopsies were obtained from the terminal ileum. The scope was then withdrawn back into the stomach and the scope was then withdrawn slowly. Mucosa overlying the ascending, transverse, descending, sigmoid, and rectum was diffusely ulcerated. Multiple random biopsies were obtained. The scope was then retroflexed into the distal rectum due to the excessive ulceration. The scope was subsequently withdrawn after securing an adequate stool specimen that was sent for the appropriate stool studies. The patient tolerated procedure well. IMPRESSION: 1. Panulcerative colitis, biopsies obtained. 2. Ulcerative proctitis, biopsies obtained. 3. Retroflexion was not done. PLAN: Follow up histology. Follow up stool studies. Initiate Lialda 4.8 g p.o. daily. Vishal Dixon MD [facility] [place] /[id number] cc: Josiah Daniel MD
--- NOTE | 2019-11-04 20:31 | NUR ---
Patient received sitting on chair by bedside. AAO x 3. Patient had no complaints of pain. Respirations even and non-labored. Safety measures in place. Patient instructed to call for assistance when needed. Call light within reach.
[2019-11-05] VITALS (7 sets, daily range): BP systolic 113–129; BP diastolic 60–89
[2019-11-05] MEDS: METOCLOPRAMIDE HCL 10 MG/2ML VIAL IV SCH ×5 (00:30→23:45)
--- NOTE | 2019-11-05 03:02 | Progress Note ---
DATE: 11/05/2019 Medicine Progress Note SUBJECTIVE: The patient underwent colonoscopy, which shows ulcerations in the colon throughout with inflammation. The patient is on full liquid diet now. PHYSICAL EXAMINATION: VITAL SIGNS: Temperature is 97.8, pulse 87, respiratory rate is 18, blood pressure is 127/76, pulse ox is 100% on room air. GENERAL: Not in acute distress. Alert and oriented x3. Cooperative on examination. PULMONARY: Clear to auscultation bilaterally. No wheezing, no rales, no rhonchi, no crackles appreciated. CARDIOVASCULAR: Positive S1 and S2. No murmurs, rubs, or gallops appreciated. ABDOMEN: Soft, nondistended, and nontender to palpation. Bowel sounds present. MUSCULOSKELETAL: Strength is 5/5 throughout. LABORATORY DATA: Show white count 9, hemoglobin 12, hematocrit is 38, platelets 251. Chemistry reviewed, stable. MICROBIOLOGY: Blood cultures, no growth. Stool ova and parasites are pending. IMAGING: MRI of the brain, no acute intracranial abnormalities. . IMPRESSION: 1. Pancolitis, status post EGD, which showed an ulcerative colitis with ulcerative proctitis performed on 11/04/2019. 2. Atrial fibrillation with rapid ventricular response. 3. Nausea, vomiting, and dehydration. 4. Hypercoagulable with supratherapeutic INR. PLAN: At this time, colonoscopy has been noted . Cardiology is following as well as GI. Continue same plan of care and monitor closely. MD LANA Solorio/MODL /[id number]
--- NOTE | 2019-11-05 05:44 | NUR ---
hvac maintenance technician called with patient's cardiac rhythm as Afib with RVR ( 154). Dr. Hurd (Dr. Luis manning) paged. Awaiting call back.
[2019-11-05] MEDS: METRONIDAZOLE 500 MG TAB PO SCH ×3 (05:53→21:55)
[2019-11-05] MEDS: LOPERAMIDE HCL 2 MG CAP PO PRN (06:00)
--- NOTE | 2019-11-05 06:07 | NUR ---
Dr. Smith called with new orders for patient's cardiac rhythm of AFIB with RVR (158 to 165). -----Digoxin 0.5 mg IV x 1 and Metoprolol 5 mg IV x 1.
[2019-11-05] MEDS ORDERED: METOPROLOL TARTRATE INJ 1 MG/ML VIAL IV ONE (06:15)
[2019-11-05] MEDS ORDERED: DIGOXIN INJ 0.25 MG/ML 2 ML AMP IV ONE (06:15)
--- NOTE | 2019-11-05 06:35 | NUR ---
RECEIVED BEDSIDE SHIFT REPORT FROM OFF GOING NURSE. PATIENT IS RESTING IN BED, DENIES PAIN OR DISCOMFORT. NO ACUTE DISTRESS NOTED. CALL LIGHT WITHIN REACH. BED IN THE LOWEST POSITION. BED ALARM ON.
[2019-11-05] MEDS: SUCRALFATE 1 GM/10 ML SUSP NG SCH ×4 (08:34→21:55)
[2019-11-05] MEDS: CHOLESTYRAMINE 4 GM PACKET PO SCH ×2 (08:35→16:07)
[2019-11-05] MEDS: METOPROLOL TARTRATE 50 MG TAB PO SCH ×2 (08:35→16:17)
[2019-11-05] MEDS: MESALAMINE 400 MG CAP PO SCH ×3 (08:35→21:55)
[2019-11-05] MEDS: PANTOPRAZOLE 40 MG 10ML VIAL IV SCH ×2 (08:35→16:17)
[2019-11-05] MEDS: DICYCLOMINE HCL 20 MG TAB PO SCH ×4 (08:35→21:55)
--- NOTE | 2019-11-05 16:56 | NUR ---
infectious disease progress note patient's examination reviewed. 5 the patient currently alert oriented does not seem acute distress her vitals stable afebrile review of system otherwise unremarkable medication list reviewed. UBJECTIVE: The patient underwent colonoscopy, which shows ulcerations in the colon throughout with inflammation. The patient is on full liquid diet now. PHYSICAL EXAMINATION: VITAL SIGNS: Temperature is 97.8, pulse 87, respiratory rate is 18, blood pressure is 127/76, pulse ox is 100% on room air. GENERAL: Not in acute distress. Alert and oriented x3. Cooperative on examination. PULMONARY: Clear to auscultation bilaterally. No wheezing, no rales, no rhonchi, no crackles appreciated. CARDIOVASCULAR: Positive S1 and S2. No murmurs, rubs, or gallops appreciated. ABDOMEN: Soft, nondistended, and nontender to palpation. Bowel sounds present. MUSCULOSKELETAL: Strength is 5/5 throughout. LABORATORY DATA: Show white count 9, hemoglobin 12, hematocrit is 38, platelets 251. Chemistry reviewed, stable. MICROBIOLOGY: Blood cultures, no growth. Stool ova and parasites are pending. IMAGING: MRI of the brain, no acute intracranial abnormalities. IMPRESSION: 1. Pancolitis, status post EGD, which showed an ulcerative colitis with ulcerative proctitis performed on 11/04/2019. 2. Atrial fibrillation with rapid ventricular response. 3. Nausea, vomiting, and dehydration. 4. Hypercoagulable with supratherapeutic INR. stable from infectious disease point of view patient per GI evaluation
--- NOTE | 2019-11-05 19:16 | NUR ---
BEDSIDE SHIFT REPORT GIVEN TO ONCOMING NURSE. PATIENT IS IN STABLE CONDITION. DENIES PAIN OR DISCOMFORT CALL LIGHT WITHIN REACH. BED IN THE LOWEST POSITION.
--- NOTE | 2019-11-05 19:20 | NUR ---
Patient received sitting by bedside. AAO x 2. No complaints of pain. No signs of respiratory distress. Fall precautions implemented. Patient instructed to call for assistance when needed. Call light within reach.
[2019-11-06] VITALS (7 sets, daily range): BP systolic 112–120; BP diastolic 66–88
[2019-11-06] MEDS: ONDANSETRON HCL INJ 2MG/ML 2ML 2 MG/ML VIAL IV PRN (01:46)
[2019-11-06] MEDS: LOPERAMIDE HCL 2 MG CAP PO PRN ×2 (01:46→18:00)
--- NOTE | 2019-11-06 02:06 | Progress Note ---
DATE: 11/05/2019 Medicine Progress Note SUBJECTIVE: The patient is still having some diarrhea and some abdominal pain. The patient wanted to leave the hospital against medical advice, but I was able to convince him to stay. The patient is not ready for discharge at this time. PHYSICAL EXAMINATION: VITAL SIGNS: Temperature is 97.6, pulse 107, respiratory rate 17, blood pressure 130/89, pulse ox 100% on room air. GENERAL: Not in acute distress. Alert and oriented x3. Cooperative on examination. HEENT: Head; normocephalic, atraumatic. Eyes; pupils are equal, round, and reactive to light bilaterally. Extraocular movements intact bilaterally. Throat; no evidence of erythema or exudates in the posterior pharynx. Has poor dentition. NECK: Supple. Good range of motion. PULMONARY: Clear to auscultation bilaterally. No wheezing, no rales, no rhonchi, no crackles appreciated. CARDIOVASCULAR: Positive S1 and S2. No murmurs, rubs, or gallops appreciated. ABDOMEN: Soft, nondistended, and nontender to palpation. Bowel sounds present. MUSCULOSKELETAL: Strength is 5/5 throughout. No evidence of any muscle deficits on examination. No weakness appreciated. NEUROLOGIC: Cranial nerve II through XII grossly intact. No evidence of any neurological deficits on exam. SKIN: Intact. Warm to touch. Good cap refill. PSYCHIATRIC: Normal affect and mood. EXTREMITIES: No edema. Good range of motion throughout. LABORATORY DATA: Findings show white count 9, hemoglobin 12, hematocrit 38, platelets of 251. Chemistry; sodium 142, potassium 3.8, , anion gap of 20, BUN 8, creatinine 1.1. MICROBIOLOGY: Stool ova are normal and parasites are pending. IMPRESSION: 1. Pancolitis, status post EGD shows ulcerative colitis with ulcerative proctitis performed on 11/04/2019. 2. Atrial fibrillation with rapid ventricular response-resolved. 3. Nausea, vomiting, diarrhea. 4. Decreased oral intake. PLAN: At this time, continue with same plan of care, which GI as recommended. His heart rate has improved. Cardiology is following. Get a.m. labs. The patient wants to leave against medical advice, which I do not recommend. This will be truly up to him if he felt that he needs to leave against medical advice. He is still not ready, as he still has some pain in the abdomen, still needs to continue with . Also, in fact he is actually refusing some of the medications orally according to the nursing staff, which is delaying his care. I discussed this with him thoroughly at bedside. He verbalized that he will continue to be compliant. MD LANA Solorio/ISRAEL /[id number]
[2019-11-06 05:26] LABS: BASOPHILS % 0.2 % (0.0-1.0); EOSINOPHILS % 0.2 % (0.0-6.0); HEMOGLOBIN 11.2 g/dL (14.0-18.0); LYMPHOCYTES # (AUTO) 0.6 (1.0-3.2); LYMPHOCYTES % 9.3 % (18.0-39.1); MEAN CORPUSCULAR HEMOGLOBIN 29.7 pg (28-32); MEAN CORPUSCULAR HGB CONC 32.9 g/dL (31-35); MEAN CORPUSCULAR VOLUME 90.2 fL (81-99); MONOCYTES # (AUTO) 0.2 (0.2-0.8); MONOCYTES % 2.9 % (4.4-11.3); NEUTROPHILS # (AUTO) 5.4 (2.1-6.9); PLATELET COUNT 229 x10e3/uL (140-360); RED BLOOD COUNT 3.77 x10e6/uL (4.3-5.7); RED CELL DISTRIBUTION WIDTH 14.7 % (11.7-14.4)
[2019-11-06] MEDS: METOCLOPRAMIDE HCL 10 MG/2ML VIAL IV SCH ×4 (05:32→23:58)
[2019-11-06] MEDS: ONDANSETRON HCL INJ 2MG/ML 2ML 2 MG/ML VIAL IV SCH ×4 (05:33→23:58)
[2019-11-06 05:53] LABS: ANION GAP 15.9 mmol/L (8-16); BLOOD UREA NITROGEN 11 mg/dL (7-26); BUN/CREATININE RATIO 11 (6-25); CALCIUM 7.5 mg/dL (8.4-10.2); CARBON DIOXIDE 18 mmol/L (22-29); CHLORIDE 106 mmol/L (98-107); CREATININE, SERUM 0.97 mg/dL (0.72-1.25); EST GLOMERULAR FILTRATION RATE > 60 ML/MIN (60-); GLUCOSE 110 mg/dL (74-118); SODIUM 137 mmol/L (136-145)
[2019-11-06 05:56] LABS: POTASSIUM 2.9 mmol/L (3.5-5.1)
[2019-11-06] MEDS ORDERED: FUROSEMIDE INJ 10 MG/ML 2 ML VIAL IV ONE (06:00)
[2019-11-06] MEDS ORDERED: POTASSIUM CHLORIDE 20 MEQ TAB CR PO STA (06:31)
--- NOTE | 2019-11-06 06:33 | NUR ---
Dr. Johnny Daniel notified of critical level of potassium (2.9). New order received for Potassium 40 MEQ now and 40 MEQ later.
--- NOTE | 2019-11-06 07:00 | NUR ---
Walking rounds done. Bedside report given to oncoming nurse.
--- NOTE | 2019-11-06 07:35 | NUR ---
Patient walked from bathroom to bed and HR 160s. Assisted patient to bed. Denies chest pain. Scheduled lopressor given
[2019-11-06] MEDS: SUCRALFATE 1 GM/10 ML SUSP NG SCH ×4 (07:40→21:00)
[2019-11-06] MEDS: PANTOPRAZOLE 40 MG 10ML VIAL IV SCH ×2 (07:40→16:30)
[2019-11-06] MEDS: DICYCLOMINE HCL 20 MG TAB PO SCH ×4 (07:40→21:40)
[2019-11-06] MEDS: METOPROLOL TARTRATE 50 MG TAB PO SCH ×2 (07:40→17:44)
[2019-11-06] MEDS: MESALAMINE 400 MG CAP PO SCH ×3 (07:40→21:40)
[2019-11-06] MEDS: CHOLESTYRAMINE 4 GM PACKET PO SCH ×2 (08:01→16:30)
--- NOTE | 2019-11-06 08:05 | NUR ---
Resting in bed HR 120s
--- NOTE | 2019-11-06 12:37 | Progress Note ---
DATE: Cardiology Progress Note SUBJECTIVE: The patient endorses some abdominal pain. Denies any chest pain, palpitation, or shortness of breath. OBJECTIVE: VITAL SIGNS: Temperature 97.7, pulse 69, respiratory rate 20, blood pressure 112/88, oxygen saturation 99% on room air. GENERAL: Alert and oriented x3. Resting in the bed. Endorses some nausea at the moment. Does not appear to be in any acute distress. NECK: Supple. No JVD noted. LUNGS: Clear to auscultation throughout. No wheezing, no rhonchi, or crackles. CARDIOVASCULAR: Irregular rate and rhythm. No murmurs, no gallops. Normal S1, S2. ABDOMEN: Soft and nontender to palpation. LOWER EXTREMITIES: No edema. CARDIOVASCULAR MEDICATIONS: Metoprolol 50 mg p.o. b.i.d. LABORATORY DATA: WBC 6.27, hemoglobin 11.2, hematocrit 34.0, platelets 229. Sodium 137, potassium 2.9, BUN 11 and creatinine 0.97. TELEMETRY: I have personally reviewed telemetry, which reflects rate controlled atrial fibrillation. IMPRESSION: 1. Atrial fibrillation. 2. Colitis. 3. Aortic regurgitation and mitral regurgitation. 4. Anemia. 5. Electrolyte imbalance. RECOMMENDATION: Replace potassium this morning. Recent echocardiogram demonstrated preserved left ventricular systolic function with mild aortic and mitral regurgitation. We will continue to monitor this patient very closely. Atrial fibrillation is well controlled. This patient is on anticoagulation, given history of anemia and hematochezia in addition. His CHADS-VASc score is currently 0. Continue antimicrobial therapy and also GI care. Dictated by Cassie Liu NP MD JARED Han/ISRAEL /[id number]
[2019-11-06] MEDS ORDERED: POTASSIUM CHLORIDE 20 MEQ TAB CR PO SCH ×2 (14:00→21:03)
--- NOTE | 2019-11-06 17:42 | NUR ---
Patient states "I have problems chewing and it takes me a while to initiate my swallowing." aware and orders to consult ST received
[2019-11-06] MEDS: BISMUTH SUBSALICYLATE 262 MG TAB PO PRN (18:00)
[2019-11-06] MEDS ORDERED: SERTRALINE HCL 50 MG TAB PO SCH (18:30)
--- NOTE | 2019-11-06 18:50 | NUR ---
Report given to oncoming nurse of patients status. Resting in bed. AAOX3 to time, person, place. Respirations even and unlabored. Side rails upx2, call light within reach.
[2019-11-06] MEDS ORDERED: POTASSIUM BICARBONATE/CIT AC 20 MEQ TABLET.EFF PO ONE ×2 (19:00→20:39)
--- NOTE | 2019-11-06 19:04 | Progress Note ---
DATE: 11/06/2019 Medicine Progress Note SUBJECTIVE: The patient is still having significant amount of diarrhea despite being on mesalamine. Still has some abdominal pain. His intake is very minimum. He reports having some problems with initiation of swallowing for which Speech Therapy has been consulted. PHYSICAL EXAMINATION: VITAL SIGNS: Temperature is 97.3, pulse 61, respiratory rate is 18, blood pressure is 116/86, and pulse ox 98% on room air. GENERAL: Not in acute distress. Alert and oriented x3. He is cooperative on examination. HEENT: Head; normocephalic, atraumatic. Eyes; pupils are equal, round, and reactive to light bilaterally. Extraocular movements intact bilaterally. Throat; no evidence of erythema or exudates in the posterior pharynx. Has poor dentition. NECK: Supple. Good range of motion. PULMONARY: Clear to auscultation bilaterally. No wheezing, no rales, no rhonchi, no crackles appreciated. CARDIOVASCULAR: Positive S1 and S2. No murmurs, rubs, or gallops appreciated. ABDOMEN: Soft, nondistended, and nontender to palpation. Bowel sounds present. MUSCULOSKELETAL: Strength is 5/5 throughout. No evidence of any muscle deficits on examination. SKIN: Intact. Warm to touch. Good cap refill. PSYCHIATRIC: Normal affect and mood. LABORATORY DATA: CBC; white count 6.2, hemoglobin 11.2, hematocrit 34, and platelets of 229. Chemistry; sodium 137, potassium 2.9 replace, chloride 106, bicarb 18, anion gap of 15, BUN is 11, creatinine is 0.97, and glucose is 110. Calcium is 7.5. Microbiology; stool ova and parasites, no growth. Blood cultures no growth, which was found to be final. We still have parasite and Giardia, which is pending. IMAGING STUDIES: Nothing new. IMPRESSION: 1. Pancolitis status post esophagogastroduodenoscopy that shows ulcerative colitis with ulcerative proctitis performed on 11/04/2019. 2. Atrial fibrillation with rapid ventricular response. 3. Nausea, vomiting, and diarrhea. 4. Decreased oral intake. 5. Hypokalemia. PLAN: At this time, the patient continues to have diarrhea despite being on cholestyramine and loperamide. He is currently getting mesalamine which GI is monitoring and managing. His heart rate was elevated and metoprolol was initiated. GI was notified. His nausea and vomiting improved. I will go ahead and get Speech Therapy evaluation as he reports he has difficulty with initiating of swallowing, which is a brand new finding. I am not sure if he needs an EGD. Get morning labs. Lovenox for DVT prophylaxis. Otherwise, follow with the rest of the consultants. MD LANA Solorio/[place]RA[place] /[id number]
--- NOTE | 2019-11-06 19:15 | NUR ---
Patient received sitting by bedside. AAO x 3. No acute distress noted. Fall precautions implemented Call light within reach.
[2019-11-06] MEDS: SERTRALINE HCL 50 MG TAB PO SCH (21:41)
--- NOTE | 2019-11-06 22:11 | NUR ---
infectious disease per note The patient continue with diarrhea stable he patient is still having significant amount of diarrhea despite being on mesalamine. Still has some abdominal pain. His intake is very minimum. He reports having some problems with initiation of swallowing for which Speech Therapy has been consulted. PHYSICAL EXAMINATION: VITAL SIGNS: Temperature is 97.3, pulse 61, respiratory rate is 18, blood pressure is 116/86, and pulse ox 98% on room air. GENERAL: Not in acute distress. Alert and oriented x3. He is cooperative on examination. HEENT: Head; normocephalic, atraumatic. Eyes; pupils are equal, round, and reactive to light bilaterally. Extraocular movements intact bilaterally. Throat; no evidence of erythema or exudates in the posterior pharynx. Has poor dentition. NECK: Supple. Good range of motion. PULMONARY: Clear to auscultation bilaterally. No wheezing, no rales, no rhonchi, no crackles appreciated. CARDIOVASCULAR: Positive S1 and S2. No murmurs, rubs, or gallops appreciated. ABDOMEN: Soft, nondistended, and nontender to palpation. Bowel sounds present. MUSCULOSKELETAL: Strength is 5/5 throughout. No evidence of any muscle deficits on examination. SKIN: Intact. Warm to touch. Good cap refill. PSYCHIATRIC: Normal affect and mood. LABORATORY DATA: CBC; white count 6.2, hemoglobin 11.2, hematocrit 34, and platelets of 229. Chemistry; sodium 137, potassium 2.9 replace, chloride 106, bicarb 18, anion gap of 15, BUN is 11, creatinine is 0.97, and glucose is 110. Calcium is 7.5. Microbiology; stool ova and parasites, no growth. Blood cultures no growth, which was found to be final. We still have parasite and Giardia, which is pending. IMAGING STUDIES: Nothing new. IMPRESSION: 1. Pancolitis status post esophagogastroduodenoscopy that shows ulcerative colitis with ulcerative proctitis performed on 11/04/2019. 2. Atrial fibrillation with rapid ventricular response. 3. Nausea, vomiting, and diarrhea. 4. Decreased oral intake. 5. Hypokalemia. Steroids Patient cefepime and Flagyl Discussed with GI
[2019-11-06] MEDS: CEFEPIME 1GM/NS 0.9% 50 ML 50 ML IV SCH (22:42)
--- NOTE | 2019-11-06 23:41 | NUR ---
Dr. Wisam Dixon here to see patient. New orders received for Lasix 20 mg IV x 1 in am (11/06) and change diet from GI Soft to Pureed diet.
[2019-11-07] VITALS (8 sets, daily range): BP systolic 103–127; BP diastolic 52–73
[2019-11-07] MEDS: LOPERAMIDE HCL 2 MG CAP PO PRN ×3 (00:58→17:27)
--- NOTE | 2019-11-07 02:59 | Progress Note ---
DATE: 11/05/2019 CARDIOLOGY PROGRESS NOTE: SUBJECTIVE: The patient continues to report abdominal discomfort and also diarrhea. Denies any hematuria or melena, chest pain or shortness of breath. No palpitations. OBJECTIVE: VITAL SIGNS: Temperature 97.6, pulse 88, blood pressure 121/63, oxygen saturation 100% on room air. GENERAL: Alert and oriented x3. Resting comfortably on the side of the bed, does not appear to be in any acute distress. NECK: Supple. No JVD noted. LUNGS: Clear to auscultation throughout. No wheezing, no rhonchi or crackles. CARDIOVASCULAR: Irregular rate and rhythm. Normal S1, S2. No murmurs, no gallops. ABDOMEN: Some tenderness noted and ongoing nausea. EXTREMITIES: Lower extremities, no edema. CARDIOVASCULAR MEDICATIONS: 1. Metoprolol 50 mg p.o. b.i.d. 2. Lovenox 40 mg subcu daily. LABORTORY DATA: No new labs today. I have personally reviewed telemetry, which reflects rate controlled atrial fibrillation. IMPRESSION: 1. Atrial fibrillation. 2. Colitis. 3. Aortic regurgitation. 4. Mitral regurgitation. 5. Anemia. RECOMMENDATIONS: Continue GI management of colitis. Echocardiogram demonstrated preserved left ventricular systolic function with mild aortic and mitral regurgitation. Continue to monitor patient on telemetry. Continue beta-ronal and monitor rate with telemetry. This patient is on anticoagulation given history of anemia and also hematochezia in addition his Chads-Vasc score is zero. Continue antimicrobial therapy per Infectious Disease. We will continue to follow this patient very closely. Dictated by Cassie Liu NP MD JARED Han/BENITAL /[id number]
[2019-11-07 05:37] LABS: EOSINOPHILS % 0.2 % (0.0-6.0); HEMATOCRIT 30.7 % (38.2-49.6); HEMOGLOBIN 10.4 g/dL (14.0-18.0); LYMPHOCYTES # (AUTO) 0.6 (1.0-3.2); LYMPHOCYTES % 10.9 % (18.0-39.1); MEAN CORPUSCULAR HEMOGLOBIN 30.6 pg (28-32); MEAN CORPUSCULAR HGB CONC 33.9 g/dL (31-35); MEAN CORPUSCULAR VOLUME 90.3 fL (81-99); MONOCYTES # (AUTO) 0.2 (0.2-0.8); MONOCYTES % 2.9 % (4.4-11.3); NEUTROPHILS # (AUTO) 4.9 (2.1-6.9); NEUTROPHILS % 84.8 % (38.7-80.0); PLATELET COUNT 218 x10e3/uL (140-360)
[2019-11-07 05:58] LABS: ANION GAP 13.9 mmol/L (8-16); BLOOD UREA NITROGEN 11 mg/dL (7-26); BUN/CREATININE RATIO 10 (6-25); CALCIUM 7.7 mg/dL (8.4-10.2); CARBON DIOXIDE 21 mmol/L (22-29); CHLORIDE 104 mmol/L (98-107); CREATININE, SERUM 1.11 mg/dL (0.72-1.25); EST GLOMERULAR FILTRATION RATE > 60 ML/MIN (60-); GLUCOSE 120 mg/dL (74-118); POTASSIUM 3.9 mmol/L (3.5-5.1); SODIUM 135 mmol/L (136-145)
[2019-11-07] MEDS ORDERED: FUROSEMIDE INJ 10 MG/ML 2 ML VIAL IV ONE (06:00)
[2019-11-07] MEDS: METRONIDAZOLE 500MG/NS 100ML 100 ML IV SCH ×3 (06:08→22:00)
[2019-11-07] MEDS: METOCLOPRAMIDE HCL 10 MG/2ML VIAL IV SCH ×3 (06:09→17:27)
[2019-11-07] MEDS: ONDANSETRON HCL INJ 2MG/ML 2ML 2 MG/ML VIAL IV SCH ×3 (06:09→17:27)
[2019-11-07] MEDS ORDERED: SODIUM CHLORIDE 0.9% 250ML 250 ML ONE (07:55)
[2019-11-07] MEDS: SUCRALFATE 1 GM/10 ML SUSP NG SCH ×4 (09:12→21:00)
[2019-11-07] MEDS: PANTOPRAZOLE 40 MG 10ML VIAL IV SCH ×2 (09:12→17:27)
[2019-11-07] MEDS: METHYLPREDNISOLONE SOD SUCC 40 MG/ML VIAL 1ML IV SCH ×2 (09:12→21:00)
[2019-11-07] MEDS: CHOLESTYRAMINE 4 GM PACKET PO SCH ×2 (09:12→17:27)
[2019-11-07] MEDS: DICYCLOMINE HCL 20 MG TAB PO SCH ×4 (09:12→21:00)
[2019-11-07] MEDS: MESALAMINE 400 MG CAP PO SCH ×3 (09:12→21:00)
[2019-11-07] MEDS: METOPROLOL TARTRATE 50 MG TAB PO SCH ×2 (09:13→17:27)
[2019-11-07] MEDS: CEFEPIME 1GM/NS 0.9% 50 ML 50 ML IV SCH ×2 (09:13→22:15)
[2019-11-07] MEDS: BISMUTH SUBSALICYLATE 262 MG TAB PO PRN (09:14)
--- NOTE | 2019-11-07 09:25 | NUR ---
HR 160s . Scheduled lopressor given
--- NOTE | 2019-11-07 09:43 | NUR ---
Resting in bed HR 118
--- NOTE | 2019-11-07 10:10 | NUR ---
Dr.K. Greenberg aware of this AM Heart rate. NO new orders
--- NOTE | 2019-11-07 11:56 | NUR ---
ST NOTE: Thorough chart review completed. Pt sitting on the side of the bed. Pt refused any PO trials, stated his stomach was upset. Limited OME completed, pt not opening mouth very widely, lingual agility normal, RN reported pt lost weight recently and his dentures did not fit properly, per her conversation with the pt's daughter. Will return later to completed full BSE when pt willing to participate. Current diet GI soft with puree texture. Handoff to ADRIAN Cullen
--- NOTE | 2019-11-07 12:00 | NUR ---
Per Devorah PLEITEZ, patient refused to do evaluation and will follow up with patient tomorrow. Encouraged patient to do ST evaluation tomorrow. Patient states "I can't eat, I can't do evaluation. I don't even like hospital food." Encouraged patient to have family bring a meal from home. Patient states "I prefer to just eat at home." Notified Jacinta, patient's of situation. Advised to call patient and encourage him to do evaluation. Voiced understanding.
--- NOTE | 2019-11-07 15:30 | NUR ---
Dr.Haddad Joel aware patient had 5 BMS today
--- NOTE | 2019-11-07 16:38 | Progress Note ---
DATE: 11/07/2019 Cardiology Progress Note SUBJECTIVE: No major events overnight. Had episode of heart rates in the 140s to 150s for several minutes this morning before he got his metoprolol. OBJECTIVE: VITAL SIGNS: Temperature afebrile, pulse 78, respiratory rate 18, blood pressure 109/68, saturating 100% on room air. GENERAL: Middle-aged man, in no acute distress. CARDIOVASCULAR: Regular rate and rhythm. No murmurs, rubs, or gallops. LUNGS: Clear to auscultation bilaterally. ABDOMEN: Soft, nontender, nondistended. NEURO AND PSYCH: Alert and oriented to person, place, and time. Normal affect. EXTREMITIES: No edema, ulcers, or varicosities. INPATIENT MEDICATIONS: Reviewed. LABORATORY DATA: Reviewed. TELEMETRY DATA: Reviewed, shows rate controlled atrial fibrillation. ASSESSMENT AND PLAN: 1. Atrial fibrillation. 2. Colitis. 3. Anemia. RECOMMENDATIONS: Echo showed normal LV ejection fraction. We will up titrate his metoprolol to 75 b.i.d. given short episodes of tachycardia still, otherwise doing well from cardiovascular standpoint. No anticoagulation given low Chads-Vasc score and GI bleeding due to colitis. MD PHIL Wong/ISRAEL /[id number]
--- NOTE | 2019-11-07 16:43 | Progress Note ---
DATE: SUBJECTIVE: Mr. Roberts is doing better. There is no new complaint. He is still having some diarrhea. His heart rate was elevated earlier. LABORATORY DATA: Reviewed. His white count 5.8, hemoglobin of 10. PHYSICAL EXAMINATION: GENERAL: He is currently alert, oriented. VITAL SIGNS: Stable, currently afebrile. HEENT: He is not icteric. NECK: Supple. CHEST: Clear. HEART: S1, S2. ABDOMEN: Soft. IMPRESSION: Colitis. We will discuss with GI. The patient currently on metronidazole, cefepime and Solu-Medrol. PLAN: Discuss with GI and internal medicine. MD SALVATORE Bowden/MODTamika /[id number]
[2019-11-07] MEDS: ENOXAPARIN SOD INJ 40 MG/0.4 ML SYR SC SCH (17:27)
--- NOTE | 2019-11-07 19:20 | NUR ---
Report given to oncoming nurse of patient's status. Resting in bed. AAOX3 to time, person, place. Respirations even and unlabored. Side rails upx2, call light within reach, bed alarm on.
--- NOTE | 2019-11-07 19:44 | NUR ---
RECEIVED PT IN BED AOX3 .DENIES PAIN RESPIRATIONS ARE EVEN AND UNLABORED ,TELE SHOWS AFIB,CALL LIGHT WITH IN REACH CONTINUE TO MONITOR
[2019-11-07] MEDS: SERTRALINE HCL 50 MG TAB PO SCH (21:00)
[2019-11-08] VITALS (9 sets, daily range): BP systolic 108–144; BP diastolic 51–81
--- NOTE | 2019-11-08 02:40 | Progress Note ---
DATE: 11/07/2019 Medicine Progress Note SUBJECTIVE: The patient reports that his abdominal pain is much improved at the initiation of IV steroids. Discussed case with GI. The patient has significant ulcerative colitis and , but has not seek attention. LABORATORY DATA: Labs show white count 5.8, hemoglobin 10, hematocrit 30, platelets of 218. Chemistry, sodium 135, potassium 3.9, chloride 104, bicarb 20, anion gap 13. BUN 11, creatinine 1.1. Calcium is 7.7. MICROBIOLOGY: Ova and parasites are pending. Blood cultures, no growth. Pathology is pending. IMAGING STUDIES: Nothing new. PHYSICAL EXAMINATION: VITAL SIGNS: Temperature is 97.6, pulse 78, respiratory rate 18, blood pressure 109/68, saturating 100% on room air. GENERAL: No acute distress. Alert and oriented x3. Cooperative on examination. HEENT: Head is normocephalic and atraumatic. Eyes; pupils are equal, round, and reactive to light bilaterally. Extraocular movements are intact bilaterally. NECK: Supple. Good range of motion. PULMONARY: Clear to auscultation bilaterally. No wheezing, no rales, no rhonchi, no crackles appreciated. CARDIOVASCULAR: Positive S1, S2. No murmurs, rubs, or gallops appreciated. GI: Abdomen is soft, nondistended, and nontender to palpation. Bowel sounds present. MUSCULOSKELETAL: Strength is 5/5 throughout. No evidence of any muscle deficits on examination. SKIN: Intact. Warm to touch. Good cap refill. PSYCHIATRIC: Normal affect and mood. EXTREMITIES: No edema. Good range of motion throughout. IMPRESSION: 1. Pancolitis, status post colonoscopy that showed ulcerative colitis and ulcerative proctitis performed on 11/04/2019. 2. Atrial fibrillation with rapid ventricular response. 3. Nausea, vomiting, diarrhea. 4. Decreased oral intake with dehydration. 5. Electrolyte abnormalities. PLAN: At this time, I spoke with GI. The patient will continue and IV steroids have been initiated. Continue with cholestyramine and loperamide. As for his heart rate, he is on metoprolol, which was initiated by Cardiology. Today, he refused to work with speech therapy, despite they came to work with him. He continues to complain of difficulty swallowing. I am not sure why he refused to work with them. At this time, get morning labs. Lovenox for DVT prophylaxis. MD LANA Solorio/[place]EL /[id number]
[2019-11-08] MEDS ORDERED: METHYLPREDNISOLONE SOD SUCC 40 MG/ML VIAL 1ML IV ONE ×3 (03:00→21:15)
[2019-11-08 05:26] LABS: BASOPHILS % 0.1 % (0.0-1.0); HEMATOCRIT 33.1 % (38.2-49.6); HEMOGLOBIN 10.9 g/dL (14.0-18.0); LYMPHOCYTES # (AUTO) 0.7 (1.0-3.2); MEAN CORPUSCULAR HEMOGLOBIN 30.2 pg (28-32); MEAN CORPUSCULAR HGB CONC 32.9 g/dL (31-35); MEAN CORPUSCULAR VOLUME 91.7 fL (81-99); MONOCYTES # (AUTO) 0.3 (0.2-0.8); MONOCYTES % 3.5 % (4.4-11.3); NEUTROPHILS % 86.7 % (38.7-80.0); PLATELET COUNT 185 x10e3/uL (140-360); RED BLOOD COUNT 3.61 x10e6/uL (4.3-5.7); RED CELL DISTRIBUTION WIDTH 15.3 % (11.7-14.4)
[2019-11-08 05:58] LABS: ANION GAP 17.5 mmol/L (8-16); CALCIUM 7.6 mg/dL (8.4-10.2); CREATININE, SERUM 1.39 mg/dL (0.72-1.25); MAGNESIUM 1.6 MG/DL (1.3-2.1); POTASSIUM 3.5 mmol/L (3.5-5.1)
[2019-11-08] MEDS: METHYLPREDNISOLONE SOD SUCC 40 MG/ML VIAL 1ML IV SCH ×3 (06:04→23:58)
[2019-11-08] MEDS: ONDANSETRON HCL INJ 2MG/ML 2ML 2 MG/ML VIAL IV SCH ×5 (06:04→23:58)
[2019-11-08] MEDS: METOCLOPRAMIDE HCL 10 MG/2ML VIAL IV SCH ×5 (06:04→23:58)
--- NOTE | 2019-11-08 06:44 | NUR ---
PT RESTED DURING THE NIGHT AND DENIES PAIN CALL LIGHT WITH IN REACH ,CONTINUE TO MONITOR
--- NOTE | 2019-11-08 07:05 | NUR ---
BEDSIDE REPORT GIVEN TO THE ONCOMING NURSE
[2019-11-08] MEDS: SUCRALFATE 1 GM/10 ML SUSP NG SCH ×4 (09:50→21:49)
[2019-11-08] MEDS: PANTOPRAZOLE 40 MG 10ML VIAL IV SCH ×2 (09:50→16:38)
[2019-11-08] MEDS: DICYCLOMINE HCL 20 MG TAB PO SCH ×4 (09:50→21:49)
[2019-11-08] MEDS: METOPROLOL TARTRATE 50 MG TAB PO SCH ×2 (09:51→16:38)
[2019-11-08] MEDS: MESALAMINE 400 MG CAP PO SCH ×3 (09:51→21:49)
[2019-11-08] MEDS: CEFEPIME 1GM/NS 0.9% 50 ML 50 ML IV SCH (09:51)
[2019-11-08] MEDS: CHOLESTYRAMINE 4 GM PACKET PO SCH ×2 (09:51→16:40)
[2019-11-08] MEDS ORDERED: DIGOXIN INJ 0.25 MG/ML 2 ML AMP IV ONE (12:00)
--- NOTE | 2019-11-08 12:16 | NUR ---
1050am Dr Dsouza called . pt A fib w RVR up to 160. no call back 1120 am Deidre dsouza called 2 time . no call back. 1210 R K Greenberg mini back for DR Dsouza . See orders .
[2019-11-08] MEDS: FUROSEMIDE INJ 10 MG/ML 4 ML VIAL IV SCH ×2 (15:47→22:00)
[2019-11-08] MEDS ORDERED: POTASSIUM CHLORIDE 20 MEQ TAB CR PO ONE (15:55)
--- NOTE | 2019-11-08 16:03 | Progress Note ---
DATE: SUBJECTIVE: Mr. Roberts is about the same. He is doing well. No new complaints. He would like to go home if he can. Discussed with GI. PHYSICAL EXAMINATION: GENERAL: He is currently alert and oriented. Does not seem to be in acute distress. VITAL SIGNS: Stable, currently afebrile. HEENT: He is not icteric. NECK: Supple. CHEST: Clear. HEART: S1 and S2. ABDOMEN: Soft. Bowel sounds present. EXTREMITIES: No edema. SKIN: No rash. IMPRESSION: Ulcerative colitis. Continue steroid. Discontinue antibiotic. Clinically seems to be getting better. Plan per GI. Discussed with the patient and the medical team. MD SALVATORE Bowden/[place] /[id number]
[2019-11-08] MEDS: ENOXAPARIN SOD INJ 40 MG/0.4 ML SYR SC SCH (16:40)
--- NOTE | 2019-11-08 19:20 | NUR ---
RECEIVED PT IN BED AOX3 .DENIES PAIN PT REFUSED SPEECH EVALUATION RESPIRATIONS ARE EVEN AND UNLABORED ,TELE SHOWS AFIB,CALL LIGHT WITH IN REACH CONTINUE TO MONITOR
[2019-11-08] MEDS: SERTRALINE HCL 50 MG TAB PO SCH (21:49)
[2019-11-09] VITALS: BP 132/68
--- NOTE | 2019-11-09 01:45 | Progress Note ---
DATE: 11/08/2019 Medicine Progress Note SUBJECTIVE: Abdominal pain improved. His stool output is decreased and it is more formed according to the patient. PHYSICAL EXAMINATION: VITAL SIGNS: Afebrile, normotensive, respiratory rate is good. GENERAL: Not in acute distress. Alert and oriented x3. Cooperative on examination. HEENT: Head is normocephalic and atraumatic. Eyes; pupils are equal, round, and reactive to light bilaterally. Extraocular movements are intact bilaterally. PULMONARY: Clear to auscultation bilaterally. No wheezing, no rales, no rhonchi, no crackles appreciated. CARDIOVASCULAR: Positive S1, S2. No murmurs, rubs, or gallops appreciated. GI: Abdomen is soft, nondistended, and nontender to palpation. Bowel sounds present. MUSCULOSKELETAL: Strength is 5/5 throughout. LABORATORY DATA: CBC stable. Chemistry; reviewed, stable. Microbiology; ova, parasite and Giardia antigen were all negative. IMAGING STUDIES: Nothing new. IMPRESSION: 1. Pancolitis status post colonoscopy that showed ulcerative colitis with ulcerative proctitis performed on 11/04/2019. 2. Atrial fibrillation with rapid ventricular response. 3. Nausea, vomiting, diarrhea-improving. 4. Decreased oral intake with dehydration-improving. 5. Electrolyte abnormalities. PLAN: At this time, his steroids are helping tremendously to this patient. Continue with cholestyramine, loperamide for diarrhea. I did increase the metoprolol , because his heart rate does go up and elevated. Today, he refused speech therapy again, which seems like he is eating well with no issues. Lovenox for DVT prophylaxis. MD LANA Solorio/MODL /[id number]
[2019-11-09 04:00] VITALS: BP 138/74
[2019-11-09] MEDS: METHYLPREDNISOLONE SOD SUCC 40 MG/ML VIAL 1ML IV SCH ×2 (06:00→13:51)
[2019-11-09] MEDS: METOCLOPRAMIDE HCL 10 MG/2ML VIAL IV SCH ×2 (06:00→13:51)
[2019-11-09] MEDS: FUROSEMIDE INJ 10 MG/ML 4 ML VIAL IV SCH (06:00)
[2019-11-09] MEDS: ONDANSETRON HCL INJ 2MG/ML 2ML 2 MG/ML VIAL IV SCH ×2 (06:00→13:51)
--- NOTE | 2019-11-09 06:03 | NUR ---
PT HAD BMX5 DURING THE NIGHT ,DENIES PAIN ,CALL LIGHT WITH IN REACH ,CONTINUE TO MONITOR
--- NOTE | 2019-11-09 07:12 | NUR ---
BEDSIDE REPORT GIVEN TO THE ONCOMING NURSE
[2019-11-09 07:40] VITALS: BP 139/60
[2019-11-09 08:00] VITALS: BP 139/60
[2019-11-09] MEDS: PANTOPRAZOLE 40 MG 10ML VIAL IV SCH (08:27)
[2019-11-09] MEDS: DICYCLOMINE HCL 20 MG TAB PO SCH ×2 (08:27→13:51)
[2019-11-09] MEDS: SUCRALFATE 1 GM/10 ML SUSP NG SCH ×2 (08:27→13:51)
[2019-11-09] MEDS: MESALAMINE 400 MG CAP PO SCH (08:28)
[2019-11-09] MEDS: CHOLESTYRAMINE 4 GM PACKET PO SCH (08:28)
[2019-11-09] MEDS: METOPROLOL TARTRATE 50 MG TAB PO SCH (08:28)
[2019-11-09] MEDS ORDERED: DIGOXIN 0.125 MG TAB PO SCH (09:00)
[2019-11-09 12:00] VITALS: BP 120/58
--- NOTE | 2019-11-09 14:49 | NUR ---
Patient received discharge order from Dr. Daniel after getting a approval from . Patient's and daughter were called and discharge instructions, prescriptions, and educations were given on the phone and in person. Patient and family verbalized understanding. Patient IV removed at 1400 and covered with a C/D/I dressing. Patient wheeled to car at 1445. Patient and family had no issues or complaints.
--- NOTE | 2019-11-10 18:10 | Progress Note ---
DATE: SUBJECTIVE: Mr. Roberts remains doing well. There are no new complaints. REVIEW OF SYSTEMS: HEENT: Negative. PULMONARY: Negative. CARDIAC: Negative. PHYSICAL EXAMINATION: GENERAL: Currently alert, oriented, does not seem to be in acute distress. VITAL SIGNS: Stable, currently afebrile. HEENT: He is not icteric. NECK: Supple. CHEST: Clear. HEART: S1, S2. ABDOMEN: Soft. Bowel sounds present. EXTREMITIES: No edema. IMPRESSION: Ulcerative colitis, off antibiotic, can be discharged home. From Infectious Disease point of view, discussed with GI. Discussed with medical team. MD SALVATORE Bowden/[place] /[id number]
--- NOTE | 2019-11-14 02:18 | Discharge Summary ---
FINAL DISCHARGE DIAGNOSES: 1. Pancolitis, status post colonoscopy that shows severe ulcerative colitis with ulcerative proctitis performed on 11/04/2019. 2. Atrial fibrillation with rapid ventricular response. 3. Nausea, vomiting, and diarrhea. 4. Decreased oral intake with dehydration. 5. Electrolyte abnormalities. CONSULTANTS: ID, GI, and Cardiology. PHYSICAL EXAMINATION: VITAL SIGNS: Temperature 96.9, pulse 71, respiratory rate 22, blood pressure 120/58, pulse ox 100% on room air. LABORATORY FINDINGS: Show white count 9.2, hemoglobin 10.9, hematocrit 33, platelets of 185. Coagulation; PT 19, INR 1.5. Chemistry; sodium 134, potassium 3.5, chloride 103, bicarb 17, anion gap of 13, BUN 11 and creatinine is 1.1, glucose is 120, calcium is 7.7, magnesium is 1.6. LFTs within normal range. Troponins were negative. Lipase was less than 4. CRP was 102. Albumin was 2.8. Urinalysis, negative. Stool lactoferrin positive. Stool calprotectin was elevated. Immunology atypical p-ANCA less than 1, ratio of 20. Serology; C. diff toxin negative. Coronavirus, not detected. Microbiology; blood cultures no growth. Stool cultures, ova and parasite including Giardia were all negative. IMAGING STUDIES: CT of the chest showed pancolitis correlate for inflammatory disease or infection, pseudomembranous colitis. There is some fluid in the lower esophageal lumen suggestive of gastroesophageal reflux. Hepatic steatosis. Renal, pancreatic atrophy. CT abdomen and pelvis as same as CT chest described above. CT of the brain shows no acute posttraumatic abnormalities. Shows a small age-indeterminate nonhemorrhagic right superior parietal insult, superimposed on multiple chronic cortical and subcortical infarcts with multiple vascular territories for which cardioembolic etiology is considered. Mild chronic microvascular ischemic change with additional chronic lacunar infarcts as described. Moderate generalized parenchymal volume loss. CT of the cervical neck shows no cervical spine fracture or subluxation. Degenerative changes as described. Hip x-ray, no acute fracture or dislocation of bilateral history. There are two adjacent rounded lesions measuring up to 7 mm in the proximal right femur, nonspecific. If possible, correlation with outside imaging is recommended to assess stability. Otherwise, consider radiographs of the right femur in three months to assess. I discussed this with the patient at bedside with the nurse present and he verbalized to follow up as an outpatient. MRI of the brain shows no acute intracranial abnormalities. Chronic infarcts as detailed above. Generalized volume loss. Mild chronic microvascular ischemic changes. HOSPITAL COURSE: This is a 64-year-old male multiple comorbidities, came in with abdominal pain, nausea, vomiting, and diarrhea, found to be in atrial fibrillation with rapid ventricular response. As for his GI issues, the patient was evaluated by GI. He was on IV fluids and IV antibiotic therapy. After further evaluation, the patient underwent status post colonoscopy on 11/04/2019, by GI and was found to have severe ulcerative colitis with ulcerative proctitis. While here, the patient was started on mesalamine as well as IV steroids. He improved throughout the hospital course in relation with the steroids. He initially was on clear liquid diet, but was not eating well and eventually advanced to solid food prior to being discharged. He was discharged on oral steroids as well as another medication prescribed by GI. He was advised to follow up in 1-2 weeks in his office for further management and care and close monitoring. As for his atrial fibrillation and his elevated heart rate, the [facility]iology Group was consulted. The patient was on beta-blockers as well as other rate control medications, which improved. He did not qualify for any anticoagulation due to his CHADS-VASc score being 0. As per Cardiology's recommendations, no anticoagulation was needed upon discharge. As for his nausea, vomiting, and diarrhea, it improved throughout the hospital course after the initiation of steroids. He was on IV fluids while here as well. The patient was ambulating with no issues. He was doing very well with no issues. All his cultures were found to be negative. In relation to his imaging studies, MRI of the brain was found to be normal. His hip x-ray shows some evidence of some right-sided femur lucency, in which I spoke with the patient at bedside to repeat an x-ray in about one months' time for further evaluation and management. Nurse was present when I spoke with him and he verbalized understanding and agrees with plan of care. The patient was otherwise doing well, back to normal baseline with no other issues. On the day of discharge, vital signs were stable, labs reviewed and stable. The patient is seen and evaluated and examined thoroughly on the day of discharge. No other complaints. The patient verbalized understanding and agrees to plan of care to follow up accordingly as an outpatient with primary care physician in 1 week and GI specialist in 2 weeks' time. The patient was advised to follow with the other consults as well in about 2 weeks' time. MEDICATIONS: See med reconciliation form. DISPOSITION: Home. CONDITION: Stable. DIET: Heart healthy. In the event of worsening symptoms, the patient advised to come back to the ED for further evaluation. Discharge summary took greater than 35 minutes. MD LANA Solorio/[place] /[id number]
== END 2019-11-09 14:45 | disposition home or self-care (01) | DRG 872 ==
LOC: ER 21:57 → ERHOLD 10-29 00:25 → IMCU 10-29 02:17 → MED/SURG2 10-30 22:13
PROVIDERS: ADMIT Internal Medicine; ATTEND Internal Medicine
PROC: 0DBB8ZX Excision of Ileum, Via Natural or Artificial Opening Endoscopic, Diagnostic (ICD-10-PCS; principal; 2019-11-04 13:22)
PROC: 0DBE8ZX Excision of Large Intestine, Via Natural or Artificial Opening Endoscopic, Diagnostic (ICD-10-PCS; 2019-11-04 13:22)
DX: A41.9 Sepsis, unspecified organism (principal); K51.218 Ulcerative (chronic) proctitis with other complication; R65.20 Severe sepsis without septic shock; I48.91 Unspecified atrial fibrillation; I10 Essential (primary) hypertension; E11.9 Type 2 diabetes mellitus without complications; Z11.59 Encounter for screening for other viral diseases; I70.0 Atherosclerosis of aorta; I08.0 Rheumatic disorders of both mitral and aortic valves; K74.60 Unspecified cirrhosis of liver; E86.0 Dehydration; R53.81 Other malaise; D64.9 Anemia, unspecified; E87.6 Hypokalemia; R13.10 Dysphagia, unspecified
CPT/HCPCS: 36415; 45378; 45380; 70450; 70551; 71260; 72125; 73521; 74177; 80048; 80053; 81001; 82550; 82553; 83036; 83605; 83630; 83690; 83735; 83993; 84132; 84484; 85014; 85018; 85025; 85610; 86140; 86256; 86671; 87040; 87045; 87177; 87328; 87493; 88305; 88342; 93005; 93306; 99284; J0692; J0696; J1160; J1170; J1650; J1940; J1956; J2250; J2270; J2405; J2543; J2765; J2920; J3010; J3430; J3480; J7030; J7050; P9047; U0002